=== PATIENT | male | born 1935 | race Caucasian/White ===

== ENCOUNTER → 2017-02-22 | Outpatient (CLI) | payer OTHER ==
[2016-08-23 13:56] VITALS: BP 123/66; PULSE 60
[~2017-02-22] MED LIST: ACT30 PO; ASPI81TA28 PO; ATOR-26 PO; BICA50TA2 PO; CALC-354; CHOL1TAB42; HYDR-3419 PO; ISOS20TA4; ISOS30TA3 PO; LEUP1INJ15 IM; LEUP30IN3 IM; LOSA1TAB PO; METO25TA56 PO; MULT-506 PO; RIVA1TAB4 PO; [UNRECOGNIZED DRUG - CODE]
[2017-02-22 13:15] VITALS: BP 105/68; PULSE 61; TEMP 37; O2SAT 95
--- NOTE | 2017-02-22 16:53 | Radiation Oncology Follow-Up ---
Radiation Oncology Follow-Up Date of Visit Feb 22, 2017. 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 Mackay is an 80-year-old male who has been followed with prostate-specific antigens intermittently in the past. These have remained in the normal range. Prostate-specific antigen on 05/21/2013 was 1.91. A most recent prostate- specific antigen was 1.84 from 01/06/2015.. In July of last year patient noted the onset of some rectal and penile pain. This was initially mild but has become more persistent and more severe. More recently the patient has noted increasing urinary frequency starting in October of this year. Patient was seen by Dr. Hensley on 11/02/2015 with a complaint of nocturia every 2 hours along with frequency and mild urgency. He also complained of decreased urinary stream with starting and stopping. The patient was started on Flomax but noticed a sensation of pins and needles in the urethra. He was also started on Finasteride 5 mg in September 2015. Digital rectal exam at that time revealed the prostate to be enlarged at 60 g with no induration or nodularity. He discussed consideration of Flomax or Rapaflo and was given samples of the Rapaflo. He recommended continuing the Finasteride and suggested consideration of cystoscopy. On 11/24/2015 patient underwent a flexible cystoscopy for irritative voiding symptoms and a significant smoking history. The patient had stopped the Flomax and started Rapaflo but it noticed no significant improvement from the Rapaflo. The examination of the urethra was described as normal. The cystoscope was advanced to the urethrovesical junction and the bladder was distended. The prostate was visualized at the proximal urethra and bladder neck and the prostate appeared abnormal and severely enlarged with kissing lateral lobes. All regions of the bladder versus dramatically inspected and the bladder appeared normal. The evaluation however was incomplete due to patient discomfort and pain. No apparent tumors were seen. Dr. Hensley discussed with the patient performing a transurethral resection of the prostate to improve urinary flow. However because of the Xarelto which he was taking for abnormal heart rate with pacemaker the patient was felt to be potential increased risk if this medication and aspirin were stopped. It was felt the patient was having symptoms of prostatitis and he was placed on a course of antibiotics consisting of ciprofloxacin and a possible transurethral resection of the prostate was to be reevaluated in 4 weeks. Patient had a repeat prostate-specific antigen that was drawn on 03/04/2016. This value was 0.39. This likely reflects the effect of finasteride. He continued to have persistent urinary symptoms and was seen by Dr. Ramirez. The digital rectal exam revealed an enlarged nodular firm prostate. He recommended consideration of ultrasound-guided biopsies. The patient agreed and the procedure was performed on 03/15/2016. Biopsies from the left lateral base revealed prostatic adenocarcinoma [place] grade 5+4 involving 30% of the core tissue sample. Biopsy of the left base revealed prostatic adenocarcinoma [place] grade 5+5 involving 80% of the core tissue sample. Biopsy of the left lateral mid gland revealed prostatic adenocarcinoma [place] grade 5+5 involving 90% of the core tissue with evidence of perineural invasion. Biopsy from the left mid gland revealed prostatic adenocarcinoma Isael grade 5+5 involving 60 % of the core tissue samples. Biopsy from the left lateral apex revealed a prostatic adenocarcinoma Isael grade 5+5 involving 30% of the core tissue samples with evidence of perineural invasion. Biopsy of the left apex revealed prostatic adenocarcinoma recent grade 5+5 involving 90% of the core tissue with evidence of perineural invasion. Biopsy of the left lateral base revealed prostatic adenocarcinoma Isael grade 5+5 involving 80% of the core tissue sample. Biopsy of the right base revealed prostatic adenocarcinoma Isael grade 5+5 involving 60% of the core tissue sample with evidence of perineural invasion. Biopsies from the right lateral mid gland revealed prostatic adenocarcinoma with [place] grade 5+5 involving 90% of the core tissue samples with evidence of perineural invasion. Biopsy of the right mid gland revealed prostatic adenocarcinoma [place] grade 5+5 involving 60% of the core tissue sample. Biopsy of the right lateral apex revealed prostatic adenocarcinoma Isael grade 5+5 involving 90% of the core tissue sample. Biopsy from the right apex revealed prostatic adenocarcinoma Isael grade 5+5 involving 60% of the core tissue sample. Therefore all 12 of 12 biopsies were positive the majority Charleston grade 5+5 with evidence of perineural invasion. Several of the samples revealed evidence of tumor necrosis. Accession number [id number] Patient underwent staging procedures. On March 31 a bone scan was performed which showed no evidence of metastatic disease. A CT scan of the abdomen and pelvis with and without IV contrast was also performed. The abdominal scan showed scattered diverticulosis without evidence of diverticulitis. There was no lymph node enlargement. In the pelvis there was streak artifact from the right hip prosthesis limiting its evaluation. The seminal vesicles appeared unremarkable. The pelvic lymph nodes were not enlarged. The bladder was not well visualized. There were no suspicious bony lesions on skeletal imaging. The prostatic gland appeared grossly unremarkable in relation to the prostate- specific antigen level without obvious evidence of extraprostatic extension. The patient's pain continued. He rated it as a level 4-5 there were times slightly lower and at that time slightly higher. It is improved with a bowel movement. His bowels have become somewhat constipated due to medication. Patient was started on Casodex on 03/23/2016. He received his first Lupron injection on 04/05/2016 described as 30 mg. 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 A catheter was placed to allow adequate healing. The patient is on pain medication which he takes 1-2 times a day. He is taking Miralax daily and states he does have a bowel movement on a daily basis without straining. We are asked to see this patient for evaluation and discussion of the radiation treatment options. He was given hormonal suppression. He then returned to our office and completed radiation therapy 07/14/2016. He received 8100 cGy. Interim History He is doing well from urinary standpoint. Today he gave an AUA score of 1. He completed expanded prostate cancer index composite for clinical practice and gave a score of 0 of 12 and urinary incontinence symptoms. He gave a score of 0 12 and urinary irritation symptoms. He gave a score of 0 of 12 and bowel symptoms. He wrote not after both in the sexual symptoms. He gave a score of 1 of 12 and hormonal vitality symptoms. His total was 1 of 48. He continues regular follow-up with the urologist and [facility]. He has had recheck PSAs in these all continue to be less than 0.01. He continues on hormone suppression. He gets injections every 4 months. His last injection was in December. He does have hot flashes as a side effect to the medication. He developed a lump of the left lower lip. There had been an injury approximately 4 months ago[address] He saw Dr. Oswald a tech intern in [place]. 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 He was referred to [facility]. He is been seen and evaluated by Dr. Tomas. He'll be undergoing a wide excision 03/08/2017. Allergies Coded Allergies: Dipyridamole (Unverified Allergy, Unknown, unknown, 04/08/16) Erythromycin (Unverified Allergy, Unknown, unknown, 04/08/16) Uncoded Allergies: constrast dye (Allergy, Intermediate, rash, 04/08/16) Home Medications Scheduled Aspirin (Aspirin Ec), 81 MG PO DAILY Atorvastatin (Lipitor), 1 TAB PO DAILY Bicalutamide (Casodex), 1 TAB PO DAILY Calcium Carbonate-Cholecalcife (Caltrate 600+D), DAILY Cholecalciferol (Vitamin D), DAILY Isosorbide Mononitrate Ext Rel (Imdur Ext Rel), 1 TAB PO DAILY Leuprolide Acetate (Lupron Depot), 30 MG IM q4 months Losartan Potassium (Cozaar), 1 TAB PO DAILY Metoprolol Tartrate (Lopressor) (Lopressor), 1 TAB PO BID Multivitamin (Multivitamin), 1 TAB PO DAILY Pioglitazone (Actos), 15 MG PO DAILY Rivaroxaban (Xarelto), 1 TAB PO DAILY Scheduled PRN Hydrocodon/Acetaminophen 5MG/300MG (Vicodin (5MG/300MG)), 1 TAB PO Q6H PRN for Pain Review of Systems Gastrointestinal: Symptoms: WNL Oral: Symptoms: No Problems Respiratory: Symptoms: WNL Other Respiratory: Occasional SOB with activity Urinary: Symptoms: WNL, Nocturia Comments: Nocturia x 1, see AUA & EPIC Skin: Symptoms: No Problems Physical Exam Vital Signs Date Time Temp Pulse Resp B/P Pulse Ox O2 Delivery O2 Flow Rate FiO2 02/22/17 13:15 37.0 61 16 105/68 95 Pain: Patient Pain Scale: 0 - 10 Initial Pain Intensity: 0.0 Fatigue: None General Appearance: no apparent distress, + pertinent finding (large 1 cm lesion of the left lower lip. This is raised and causes bulging into the lower inner lip.) Neck: no adenopathy, thyroid normal Respiratory/Chest: lungs clear, no respiratory distress, no accessory muscle use Cardiovascular: regular rate, rhythm, no gallop, no murmur Abdomen: non tender Anal / Rectum: Normal sphincter tone. Prostate is smooth without nodules. No rectal masses no rectal bleeding. Neurologic/Psychiatric: no motor/sensory deficits, alert, normal mood/affect Skin: warm/dry Laboratory Studies PSAs as reviewed above. Assessment & Plan Plan: Continue regular follow-up with primary care physician and urology. The PSAs are being ordered through urology every 6 months. He is getting Lupron injections every 4 months. 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 He is also enrolling into different studies at [facility] will be dealing with tumor markers. The other study is dealing with pain medication postoperatively. Due to the ongoing hormone suppression DEXA scan has been ordered. He'll be notified as to results. We asked her to return to our office in 1 year. Total Time In Follow-Up I spent 25 minutes speaking to the patient performing examination. I spent 15 minutes reviewing information in completing this note. Copy To Lexa Ramirez M.D.; Inderjit Hummel M.D.; Arvind Molina M.D.
== END | disposition home or self-care (01) ==
LOC: C.ONC 13:09
PROVIDERS: ATTEND Physician Assistant Medical
DX: Z08 Encounter for follow-up examination after completed treatment for malignant neoplasm (principal); Z92.3 Personal history of irradiation; Z85.46 Personal history of malignant neoplasm of prostate

== ENCOUNTER → 2017-05-04 | Outpatient (CLI) | payer OTHER ==
[~2017-05-04] VITALS: Ht 172.7 cm; Wt 80.9 kg
[~2017-05-04] MED LIST changes: -[UNRECOGNIZED DRUG - CODE]
[2017-05-04 07:53] VITALS: BP 97/58; PULSE 60; TEMP 36.9; O2SAT 96
--- NOTE | 2017-05-04 09:58 | Radiation Oncology Follow-Up ---
Radiation Oncology Follow-Up Date of Visit May 04, 2017. 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) 2016 Wedge resection with modified Berumen Angelo flap reconstruction ([place]. [place] [place] 03/08/2017 Stage [id number] Status post reconstruction of the left oral commissure 04/28/2017 Status post acute bleed requiring surgical sutures to be placed 05/02/2017 Last Edited By: Paloma Yanes on May 04, 2017 09:47 (2) Cancer of prostate w/high recur risk (T3a or [place] 8-10 or PSA>20) Status: Resolved Onset Date: 03/15/2016 Histology Subtype: adenocarcinoma Stage: lll Permanent Comment: BPH with lower urinary tract symptoms PSA 1.29 status post ultrasound-guided biopsy 03/15/2016 Adenocarcinoma the prostate [place] 5+4 and 5+5 Hormonal suppression Status post completion of radiation therapy 07/14/2016 received 8100 cGy Ongoing hormonal suppression Last Edited By: Paloma Yanes on Feb 22, 2017 16:36 (Paloma Yanes PA-C) History of Present Illness Mr. Mackay is an 80-year-old male who has been followed with prostate-specific antigens intermittently in the past. These have remained in the normal range. Prostate-specific antigen on 05/21/2013 was 1.91. A most recent prostate- specific antigen was 1.84 from 01/06/2015.. In July of last year patient noted the onset of some rectal and penile pain. This was initially mild but has become more persistent and more severe. More recently the patient has noted increasing urinary frequency starting in October of this year. Patient was seen by Dr. Hensley on 11/02/2015 with a complaint of nocturia every 2 hours along with frequency and mild urgency. He also complained of decreased urinary stream with starting and stopping. The patient was started on Flomax but noticed a sensation of pins and needles in the urethra. He was also started on Finasteride 5 mg in September 2015. Digital rectal exam at that time revealed the prostate to be enlarged at 60 g with no induration or nodularity. He discussed consideration of Flomax or Rapaflo and was given samples of the Rapaflo. He recommended continuing the Finasteride and suggested consideration of cystoscopy. On 11/24/2015 patient underwent a flexible cystoscopy for irritative voiding symptoms and a significant smoking history. The patient had stopped the Flomax and started Rapaflo but it noticed no significant improvement from the Rapaflo. The examination of the urethra was described as normal. The cystoscope was advanced to the urethrovesical junction and the bladder was distended. The prostate was visualized at the proximal urethra and bladder neck and the prostate appeared abnormal and severely enlarged with kissing lateral lobes. All regions of the bladder versus dramatically inspected and the bladder appeared normal. The evaluation however was incomplete due to patient discomfort and pain. No apparent tumors were seen. Dr. Hensley discussed with the patient performing a transurethral resection of the prostate to improve urinary flow. However because of the Xarelto which he was taking for abnormal heart rate with pacemaker the patient was felt to be potential increased risk if this medication and aspirin were stopped. It was felt the patient was having symptoms of prostatitis and he was placed on a course of antibiotics consisting of ciprofloxacin and a possible transurethral resection of the prostate was to be reevaluated in 4 weeks. Patient had a repeat prostate-specific antigen that was drawn on 03/04/2016. This value was 0.39. This likely reflects the effect of finasteride. He continued to have persistent urinary symptoms and was seen by Dr. Ramirez. The digital rectal exam revealed an enlarged nodular firm prostate. He recommended consideration of ultrasound-guided biopsies. The patient agreed and the procedure was performed on 03/15/2016. Biopsies from the left lateral base revealed prostatic adenocarcinoma Isael grade 5+4 involving 30% of the core tissue sample. Biopsy of the left base revealed prostatic adenocarcinoma Isael grade 5+5 involving 80% of the core tissue sample. Biopsy of the left lateral mid gland revealed prostatic adenocarcinoma Isael grade 5+5 involving 90% of the core tissue with evidence of perineural invasion. Biopsy from the left mid gland revealed prostatic adenocarcinoma Isael grade 5+5 involving 60 % of the core tissue samples. Biopsy from the left lateral apex revealed a prostatic adenocarcinoma Isael grade 5+5 involving 30% of the core tissue samples with evidence of perineural invasion. Biopsy of the left apex revealed prostatic adenocarcinoma recent grade 5+5 involving 90% of the core tissue with evidence of perineural invasion. Biopsy of the left lateral base revealed prostatic adenocarcinoma Isael grade 5+5 involving 80% of the core tissue sample. Biopsy of the right base revealed prostatic adenocarcinoma [place] grade 5+5 involving 60% of the core tissue sample with evidence of perineural invasion. Biopsies from the right lateral mid gland revealed prostatic adenocarcinoma with Isael grade 5+5 involving 90% of the core tissue samples with evidence of perineural invasion. Biopsy of the right mid gland revealed prostatic adenocarcinoma [place] grade 5+5 involving 60% of the core tissue sample. Biopsy of the right lateral apex revealed prostatic adenocarcinoma [place] grade 5+5 involving 90% of the core tissue sample. Biopsy from the right apex revealed prostatic adenocarcinoma Isael grade 5+5 involving 60% of the core tissue sample. Therefore all 12 of 12 biopsies were positive the majority [place] grade 5+5 with evidence of perineural invasion. Several of the samples revealed evidence of tumor necrosis. Accession number [id number] Patient underwent staging procedures. On March 31 a bone scan was performed which showed no evidence of metastatic disease. A CT scan of the abdomen and pelvis with and without IV contrast was also performed. The abdominal scan showed scattered diverticulosis without evidence of diverticulitis. There was no lymph node enlargement. In the pelvis there was streak artifact from the right hip prosthesis limiting its evaluation. The seminal vesicles appeared unremarkable. The pelvic lymph nodes were not enlarged. The bladder was not well visualized. There were no suspicious bony lesions on skeletal imaging. The prostatic gland appeared grossly unremarkable in relation to the prostate- specific antigen level without obvious evidence of extraprostatic extension. The patient's pain continued. He rated it as a level 4-5 there were times slightly lower and at that time slightly higher. It is improved with a bowel movement. His bowels have become somewhat constipated due to medication. Patient was started on Casodex on 03/23/2016. He received his first Lupron injection on 04/05/2016 described as 30 mg. 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 A catheter was placed to allow adequate healing. The patient is on pain medication which he takes 1-2 times a day. He is taking Miralax daily and states he does have a bowel movement on a daily basis without straining. We are asked to see this patient for evaluation and discussion of the radiation treatment options. He was given hormonal suppression. He then returned to our office and completed radiation therapy 07/14/2016. He received 8100 cGy. He is doing well from urinary standpoint. Today he gave an AUA score of 1. He completed expanded prostate cancer index composite for clinical practice and gave a score of 0 of 12 and urinary incontinence symptoms. He gave a score of 0 12 and urinary irritation symptoms. He gave a score of 0 of 12 and bowel symptoms. He wrote not after both in the sexual symptoms. He gave a score of 1 of 12 and hormonal vitality symptoms. His total was 1 of 48. He continues regular follow-up with the urologist and [facility]. He has had recheck PSAs in these all continue to be less than 0.01. He continues on hormone suppression. He gets injections every 4 months. His last injection was in December. He does have hot flashes as a side effect to the medication. He developed a lump of the left lower lip. There had been an injury approximately 4 months ago[address] He saw Dr. Oswald a manager roofing in [place]. 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 He was referred to [facility]. He is been seen and evaluated by Dr. Tomas. He'll be undergoing a wide excision 03/08/2017. (Paloma Yanes PA-C) Interim History Following his follow-up visit 02/22/2017 he underwent a wedge resection of the lesion of the left lower lip. He also had a sentinel lymph node biopsies 2016. 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 4 lymph nodes were evaluated and were negative for metastasis. He has had difficulty with eating. The left lateral commissure did not close well after surgery. When he would eat food would come out of the corner of the mouth. He then underwent a repair on April 28. This did help to improve the problem. He has had overall proximal 24 pound weight loss due to the difficulty with eating. On 05/02/2017 he developed bleeding from the inside of the mouth. He presented to [place] emergency room. He stated that it took a considerable amount of time to stop the bleeding. Sutures were placed and the bleeding finally stopped. Since this procedure he once again has difficulty with eating and having food coming out from the left side of the mouth. He was seen in medical oncology by Dr. Krishnan in [place]. He referred the patient to our office to discuss radiation therapy. He did plan a PET/CT. This is currently scheduled for sometime in June. Arrangements were made for him to be seen at [facility]. He was seen. Unfortunately he does not have insurance coverage for the dental extractions. This was going to cause a considerable amount of money. (Paloma Yanes PA-C) Allergies Coded Allergies: Dipyridamole (Unverified Allergy, Unknown, unknown, 04/08/16) Erythromycin (Unverified Allergy, Unknown, unknown, 04/08/16) Uncoded Allergies: constrast dye (Allergy, Intermediate, rash, 04/08/16) Home Medications Scheduled Aspirin (Aspirin Ec), 81 MG PO DAILY Atorvastatin (Lipitor), 1 TAB PO DAILY Bicalutamide (Casodex), 1 TAB PO DAILY Calcium Carbonate-Cholecalcife (Caltrate 600+D), DAILY Cholecalciferol (Vitamin D), DAILY Isosorbide Mononitrate (Isosorbide Mononitrate), 40 MG AM Isosorbide Mononitrate (Isosorbide Mononitrate), PM Leuprolide Acetate (Lupron Depot), IM [id number] Losartan Potassium (Cozaar), 1 TAB PO DAILY Metoprolol Tartrate (Lopressor) (Lopressor), 1 TAB PO BID Multivitamin (Multivitamin), 1 TAB PO DAILY Pioglitazone (Actos), 15 MG PO DAILY Rivaroxaban (Xarelto), 1 TAB PO DAILY Review of Systems Gastrointestinal: GI Comments: takes miralax Respiratory: Other Respiratory: shortness of breath on exertion Urinary: Symptoms: Nocturia Comments: nocturiax1 Additional Notes: He completed a distress management report and answered "no" to all questions other than he has concerns about pain and his dental issues. He will be seen by patient navigation. (Paloma Yanes PA-C) Physical Exam Vital Signs Date Time Temp Pulse Resp B/P (MAP) Pulse Ox O2 Delivery O2 Flow Rate FiO2 05/04/17 07:53 36.9 60 20 96 Pain: Pain Duration: constant Side: Left Patient Pain Scale: 0 - 10 Initial Pain Intensity: 4.0 Pain Description: Dull, Aching General Appearance: no apparent distress Eyes: normal inspection, EOMI ENT: normal ENT inspection, hearing grossly normal, + pertinent finding ( healing incision of the left commissure. There is some mild granulation tissue seen on the buccal mucosa.) Neck: no adenopathy, thyroid normal, + pertinent finding (well-healed incisions of the right and left neck.) Respiratory/Chest: lungs clear, no respiratory distress, no accessory muscle use, + respiratory distress Cardiovascular: regular rate, rhythm, no gallop, no murmur Neurologic/Psychiatric: no motor/sensory deficits, alert, normal mood/affect Skin: warm/dry (Paloma Yanes PA-C) Assessment & Plan Mr. Mackay is a 81-year-old gentleman with a previous history of high risk prostate cancer treated with external beam radiation therapy and androgen deprivation therapy which completed in June 2016. In the interim, the patient has been receiving long-term androgen deprivation therapy for his prostate cancer and currently his prostate cancer is in remission. More recently, the patient was diagnosed with Siva cell carcinoma involving the left lower lip. The patient initially underwent biopsy in January 2017 followed by wide local excision and sentinel lymph node biopsy on 03/08/[address] Tomas at [facility]. At the time of the procedure, the patient also underwent a Berumen-Angelo flap reconstruction. The pathology from the wide local excision revealed Maxbass cell carcinoma measuring 1 cm in the greatest dimension with negative margins in all directions; there was evidence of lymphovascular space invasion potentially and 4 sentinel lymph nodes were sampled and all the lymph nodes were negative. The patient was ultimately staged as pathologic T1N0. Following his surgery in February 2017, the patient did suffer from incontinence of the left oral commissure which did lead to significant bleeding requiring the patient to undergo multiple evaluations and reconstructive surgery in the beginning of April 2017. The patient has also been seen by Dr. Beckman from medical oncology at [facility] and Dr. Beckman has recommended adjuvant radiation therapy alone with no role for chemotherapy. Dr. Beckman plans to the patient back in follow-up in 3 months with a PET/CT scan. We are now seeing the patient in evaluation to discuss the role of adjuvant radiation therapy. In general, we did discuss the natural course, epidemiology, prognosis and treatment management for head and neck Maxbass cell carcinoma. We did explain to the patient that there are no randomized conical trials that help guide our overall management however adjuvant radiation therapy has been shown to potentially be beneficial for improving local control following surgery in multiple retrospective studies. Given the location and the concern for potential recurrence, we have recommended adjuvant radiation therapy. I will discuss the case with Dr. Tomas regarding the potential role of adjuvant radiation therapy to the bilateral necks given the fact that the sentinel lymph nodes bilaterally were negative. At this point, we have recommended adjuvant radiation therapy to the postoperative bed without radiation therapy to the bilateral at-risk lymph nodes. The patient has agreed to undergo radiation therapy. We did education counselor the patient regarding the need for a potential feeding tube due to the location of the radiation therapy and the anticipated challenge of oral intake as we progress throught the course of radiation therapy; at this point, the patient is uninterested in being considered for a feeding tube. We explained to him that we can reevaluate during the course of treatment regarding the need for the placement of a feeding tube. Additionally, we did review the need to complete dental extractions prior to initiating radiation therapy to prevent the risk of osteoradionecrosis following the completion of radiation therapy. The patient has agreed to undergo dental evaluation with consideration of dental extraction of his lower mandibular teeth. We will schedule the patient for tentative CT simulation for treatment planning in 2 weeks with the expectation that he will have his dental extractions completed within the next week; if there is delay with his dental extractions, we will reevaluate in order to minimize potential delay from surgery to radiation therapy. The patient was comfortable with this plan overall. We have explained the indications, alternatives, benefits, risks and side effects of radiation therapy for head/neck cancer. We have explained the most common side effects including but are not limited to skin erythema, skin break down, hair loss, fibrosis, adhesion development, heart failure and heart disease , esophagitis, bowel obstruction, urinary symptoms, thyroid disorders, mucositis , nauesea, vomiting, diarrhea, anemia, fatigue and development of secondary malignancy. Additionally, patients suffer may have xerostomia, stomatitis, glossitis, dysphagia, aspiration, mandibular osteoradionecrosis, mucocutaneous fistula formation, lymphedema in the neck, pharyngeal edema, mucositis, loss of taste. We also discussed that male patients may have issues with erections ( potency) and infertility issues depending on their age and area of treatment. We have explained the CT simulation process and treatment planning. We explained what to expect before, during and after treatment on a regular basis. The patient understands and would be willing to consent to treatment. The patient and family had multiple questions which were answered to their full satisfaction. Thank you for allowing us to participate in the care of this patient. This chart was completed in part utilizing [employer] Speech Voice Recognition software. Attempts were made to minimize the grammatical errors, random word insertions, pronoun errors and incomplete sentences. Any formal questions or concerns about the content, text or information contained within the body of this dictation should be directly addressed to the provider for clarification. Reece Grubbs MD Department of Radiation Oncology [facility] (Veeral. Grubbs MD) Total Time In Follow-Up I spent 20 minutes seeking to the patient performing examination. I spent 15 minutes reviewing information in completing this note. (Paloma Yanes PA-C) I spent 20 minutes examining and counseling the patient. I spent 15 minutes completing this note. [employer] (Veeral. Grubbs MD) Copy To Jovani Beckman M.D.; Inderjit Hummel M.D.; Gavino Tomas M.D.
== END | disposition home or self-care (01) ==
LOC: C.ONC 07:49
PROVIDERS: ATTEND Internal Medicine Hematology & Oncology
DX: C00.9 Malignant neoplasm of lip, unspecified (principal); Z85.46 Personal history of malignant neoplasm of prostate

== ENCOUNTER → 2017-12-29 | Outpatient (CLI) | payer OTHER ==
[~2017-12-29] MED LIST changes: -HYDR-3419 PO; -ISOS30TA3 PO; -LEUP30IN3 IM; +OPTIRAY 320 IV PRN
--- NOTE | 2017-12-29 14:52 | DIAGNOSTIC IMAGING REPORT ---
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 COMPARISON STUDY: Abdominal CT dated 03/31/2016. TECHNIQUE: Following the IV administration of 94 of Optiray 320, CT scan of the chest, abdomen, and pelvis was performed from the thoracic inlet to the proximal femora. Images are reviewed in the axial, sagittal, and coronal planes. IV contrast was administered without complication. Automated dose control exposure was utilized. A dose lowering technique was utilized adhering to the principles of ALARA. The examination is degraded by streak artifact from the patient's arms which could not be elevated above the chest or abdomen. CT DOSE: 869.97 mGy.cm FINDINGS: CHEST: Thyroid: Atrophic. Thoracic aorta: There is atherosclerotic calcification of the thoracic aorta, which is normal in caliber and demonstrates standard 3-vessel arch anatomy. No dissection is seen. Pulmonary vasculature: The pulmonary trunk is normal in caliber. There are no filling defects identified in the central pulmonary vessels to indicate pulmonary embolus. Note that this examination was not protocoled for evaluation of the pulmonary arteries. Heart: A 2-lead cardiac pacemaker is present in the left chest wall. The patient is status post midline sternotomy. The heart is normal in size and without pericardial effusion. The coronary arteries are densely calcified. Lungs and pleural spaces: Emphysematous change is identified. There is evidence of multifocal pulmonary metastatic disease. A right anterior apical pulmonary lesion is seen on image #63 and measures 3.6 x 3.0 cm. There is surrounding groundglass change at the right apex. A 2.2 x 1.6 cm lesion is seen in the right lung base on image #199, a 1.8 cm pleural-based lesion in the left lower lobe as seen on image #156, and a 0.7 cm pleural-based nodule at the left apex as seen on image #62. Mediastinum: There is no mediastinal lymphadenopathy. Aminah: There is left hilar adenopathy. A node on image #150 measures 3.0 x 2.0 cm. No right hilar adenopathy is identified. Axillae: There is no axillary lymphadenopathy. Bony thorax: The skeletal structures are osteopenic. No lytic or blastic lesions are identified. Degenerative change is seen throughout the thoracic spine and in the shoulders. ABDOMEN AND PELVIS: Liver: The contrast-enhanced liver is normal in size, contour, and attenuation. There is no intrahepatic or ductal dilatation. The hepatic veins and portal veins are patent. Gallbladder: The gallbladder is distended but otherwise normal in appearance. Spleen: Normal in size and attenuation. Pancreas: Atrophic and grossly unremarkable. Adrenal glands: Unremarkable. Kidneys: The contrast enhanced kidneys are atrophic and without hydronephrosis. The kidneys enhance symmetrically. Scattered subcentimeter cortical hypodensities likely represent cysts but are too small for definitive characterization. There is a 1.7 cm enhancing lesion arising from the posterior interpolar right kidney on image #134. Renovascular calcifications are observed. Abdominal vasculature: There is advanced atherosclerotic calcification of the abdominal aorta. Aortobiiliac bypass grafts are identified and the qawalangin aorta is thrombosed. The bypass grafts are widely patent. Bowel: There is moderate sigmoid diverticulosis without CT evidence of acute diverticulitis. Moderate constipation is observed. No bowel obstruction is seen. The appendix is well-visualized and normal. Peritoneum: There is no intraperitoneal free air or abdominal ascites. Lymphadenopathy: There are enlarged retroperitoneal and left iliac chain lymph nodes. A left periaortic node on image #174 measures 2.4 x 2.0 cm. A more inferior left periaortic node on image #218 measures 2.2 x 2.7 cm. A left iliac otis aggregate on image #276 measures approximately 3.5 x 3 cm. No pelvic sidewall or inguinal lymphadenopathy is seen. Pelvic viscera: Evaluation of the pelvis is degraded by streak artifact from a right hip arthroplasty. The bladder is decompressed and not well evaluated. A 2.0 cm enhancing soft tissue nodule is suggested along the posterior left wall of the lateral and axial image #382. The prostate gland is diminutive and heterogeneous. Metallic implants are noted in the prostate. There is a 5.1 x 3.5 cm soft tissue implant seen posterior to the left ilium within the superior aspect of the gluteal musculature on image #256. An additional 2.3 cm implant is seen within the more inferior left gluteal musculature on image #303. Skeletal structures: The skeletal structures are osteopenic. There is moderate lumbosacral spondylosis. Advanced arthritic change is seen in the left hip. No lytic or blastic lesions are seen. A right hip arthroplasty is in place. IMPRESSION: 1. There is evidence of multifocal metastatic disease. 2. There is multifocal pulmonary metastatic disease as well as left hilar adenopathy. 3. There are pathologically enlarged retroperitoneal and left iliac chain lymph nodes. 4. Large soft tissue implants are present within the left gluteal musculature. 5. There is groundglass consolidation at the right apex around the largest pulmonary lesion. This could represent an infectious/inflammatory pneumonitis or possibly hemorrhage. Clinical correlation will be required. 6. There is a 1.7 cm partially exophytic enhancing lesion arising from the posterior interpolar right kidney. This should be considered renal cell carcinoma until proven otherwise. 7. There is a 2.0 cm focus of nodularity suggested involving the posterior left wall of the bladder. This is not well assessed and neoplasm is not excluded. Consider follow-up with cystoscopy. 8. Emphysema. 9. Advanced peripheral vascular disease with evidence of aortobiiliac bypass. The bypass grafts are widely patent. 10. Moderate constipation. 11. The gallbladder is distended but otherwise normal in appearance. Correlation with serum bilirubin levels is recommended. 12. Moderate sigmoid diverticulosis without CT evidence of acute diverticulitis. 13. Additional findings as above. Electronically signed by: Harlan Arciniega M.D. 12/29/2017 2:51 PM Dictated Date/Time: 12/29/2017 2:34 PM
== END | disposition home or self-care (01) ==
LOC: C.CTS 12:03
PROVIDERS: ATTEND Internal Medicine Hematology & Oncology
DX: C4A Merkel cell carcinoma (principal); C78.00 Secondary malignant neoplasm of unspecified lung; R59.1 Generalized enlarged lymph nodes; N29 Other disorders of kidney and ureter in diseases classified elsewhere; J43.9 Emphysema, unspecified; I73.9 Peripheral vascular disease, unspecified; K59.00 Constipation, unspecified; K57.30 Diverticulosis of large intestine without perforation or abscess without bleeding; Z95.828 Presence of other vascular implants and grafts

== ENCOUNTER → 2018-02-28 | Outpatient (CLI) | payer OTHER ==
[~2018-02-28] MED LIST changes: -OPTIRAY 320 IV PRN
--- NOTE | 2018-02-28 16:24 | DIAGNOSTIC IMAGING REPORT ---
ULTRASOUND LEFT LOWER EXTREMITY VENOUS CLINICAL HISTORY: Left leg pain and swelling. COMPARISON STUDY: No priors. TECHNIQUE: Real-time, grayscale, and color Doppler sonography of the deep veins of the left lower extremity was performed from the inguinal crease to the calf. Compression and augmentation were utilized. FINDINGS: There is no sonographic evidence of deep venous thrombosis identified in the left lower extremity. The common femoral, superficial femoral, and popliteal veins are patent and normally compressible. The greater saphenous vein and the profunda femoris vein at the junction with the common femoral vein are clear. The visualized calf veins are patent. Prominent left inguinal lymph nodes are identified. IMPRESSION: There is no sonographic evidence of deep venous thrombosis identified in the left lower extremity. Electronically signed by: Harlan Arciniega M.D. 02/28/2018 4:22 PM Dictated Date/Time: 02/28/2018 4:21 PM
== END | disposition home or self-care (01) ==
LOC: C.ULTR 15:34
PROVIDERS: ATTEND Internal Medicine Hematology & Oncology
DX: C4A Merkel cell carcinoma (principal); M79.605 Pain in left leg; R22.42 Localized swelling, mass and lump, left lower limb

== ENCOUNTER 2018-07-02 21:56 | Inpatient (IN) | payer OTHER ==
[~2018-07-02] VITALS: Ht 172.7 cm; Wt 77.5 kg
[~2018-07-02 21:56] MED LIST changes: -BICA50TA2 PO; +BICA50TA40 PO; +FENT75DI2 TOP; +OXYC20TA50 PO
[2018-07-03] VITALS (26 sets, daily range): BP systolic 81–121; BP diastolic 53–74; PULSE 60–100; TEMP 36.4–36.5; O2SAT 94–100; Ht 172.7 cm; Wt 77.5 kg
[2018-07-03] MEDS: PROPOFOL IV EMULSION 10 MG/ML 100 ML VIAL IV PRN ×3 (05:30→19:12)
[2018-07-03] MEDS ORDERED: NOREPINEPHRINE BIT INJ 8 MG in DEXTROSE 5% 500ML 500 ML IV PRN (05:35)
[2018-07-03] MEDS ORDERED: PIPERACILL/TAZOBAC CONSULT ACTIVE PRN (05:45)
[2018-07-03] MEDS ORDERED: ICU PROTOCOL FOR HYPERGLYCEMIA PRN (05:45)
[2018-07-03] MEDS ORDERED: VANCOMYCIN CONSULT ACTIVE PRN (05:45)
[2018-07-03] MEDS ORDERED: FENTANYL CITRATE INJ 50 MCG/1 ML 2 ML VIAL IV PRN (05:45)
[2018-07-03] MEDS ORDERED: PATIENT'S HEIGHT AND/OR WEIGHT NEEDED SCH (06:00)
[2018-07-03] MEDS ORDERED: NOREPINEPHRINE BIT INJ 16 MG in DEXTROSE 5% 500ML 500 ML IV PRN (06:00)
[2018-07-03 06:31] LABS: HEMATOCRIT 24.9 % (42-52); MEAN CORPUSCULAR HEMOGLOBIN 28.3 pg (25-34); MEAN CORPUSCULAR HGB CONC 32.1 g/dl (32-36); MEAN PLATELET VOLUME 11.1 fL (7.4-10.4); PLATELET COUNT 170 K/uL (130-400); RED CELL DISTRIBUTION WIDTH CV 17.6 % (11.5-14.5); WHITE BLOOD COUNT 1.35 K/uL (4.8-10.8)
--- NOTE | 2018-07-03 06:36 | DIAGNOSTIC IMAGING REPORT ---
CHEST ONE VIEW PORTABLE CLINICAL HISTORY: Respiratory failure. [place] cell carcinoma. COMPARISON STUDY: Chest CT May 09, 2018. FINDINGS: The tip of the endotracheal tube is 5 cm above the morgan. A dual lead left subclavian pacemaker is in place. There are median sternotomy wires and clips from bypass grafting. Cardiomediastinal silhouette is stable. There is no pneumothorax or pleural effusion. Right lower neck surgical clips are noted. Interstitial thickening suggest pulmonary edema. Multifocal airspace opacities are also present. The pulmonary lesion shown on CT of May 09, 2018 are not well depicted on this exam, likely due to technique. Prominent gas-filled loops of small bowel are noted within the left upper quadrant. IMPRESSION: 1. Satisfactory positioning of the endotracheal tube. 2. Diffuse interstitial thickening which suggests pulmonary edema. Scattered bilateral airspace opacities may reflect pulmonary edema or superimposed pneumonia. 3. Pulmonary lesions shown on CT of May 09, 2018 not well depicted on this exam, likely due to technique. 4. Mildly dilated gas-filled loops of small bowel within left upper quadrant, a nonspecific finding. Electronically signed by: Shabbir Jansen M.D. 07/03/2018 6:34 AM Dictated Date/Time: 07/03/2018 6:30 AM
[2018-07-03 06:38] LABS: INR 1.4 (0.9-1.1)
[2018-07-03 06:49] LABS: ALBUMIN 2.2 gm/dl (3.4-5.0); ALT/SGPT 55 U/L (12-78); AST/SGOT 338 U/L (15-37); BLOOD UREA NITROGEN 44 mg/dl (7-18); CALCIUM 7.1 mg/dl (8.5-10.1); CARBON DIOXIDE 20 mmol/L (21-32); GLUCOSE 178 mg/dl (70-99); LIPASE 32 U/L (73-393); POTASSIUM 3.5 mmol/L (3.5-5.1); SODIUM 136 mmol/L (136-145)
--- NOTE | 2018-07-03 06:53 | Critical Care Consultation ---
Critical Care Consultation Date of Consultation: Jul 03, 2018. Attending Physician: Eleazar Kenney M.D. Reason for Consultation: 82-year-old male with acute hypoxic respiratory failure requiring intubation with mechanical ventilation with underlying concerns for aspiration event resulting in septic presentation. History of Present Illness History of present illness is limited secondary to patient's current state of intubation with mechanical ventilation with sedation. History obtained from colleagues, nursing staff, and outside facility documentation. 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 He currently is treated aggressively with pain medication in the outpatient setting. Apparently, sometime last evening, the patient sustained a fall from height. He was found in the bathroom floor by family. He was brought to the emergency department at which time he was found to be in extreme pain. He was treated with multiple doses of pain medication including fentanyl and Dilaudid. He was aggressively hydrated with IV fluids secondary to tachycardia, hypotension, and fever with concerns of RIGHT middle lobe pneumonia. Patient was found to be neutropenic as well as anemic. His BNP was greater than 22, 000. His lactic acid was initially 6.1 which she declined to 4. During treatment, the patient complained of increasing shortness of breath and was found to be extremely hypoxic. Eventually, the patient required endotracheal intubation for airway management. Previously, the patient had been a DNR/DNI, however this decision had apparently been reversed by family. He was medicated with etomidate and succinylcholine prior to intubation. Patient was placed on a propofol drip. He received IV vancomycin and Zosyn. CTA of the chest was obtained and demonstrated no PE, however groundglass opacities consistent with possible infiltrative change versus metastatic process was evaluated on chest CT. Upon arrival in the ICU, the patient is intubated and sedated. He was placed on norepinephrine in route from outside facility. 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) Social History Smoking Status: Current Every Day Smoker Smokeless Tobacco Use: No Alcohol Use: none Drug Use: none Marital Status: other Housing Status: lives with family Occupation Status: retired Allergies Coded Allergies: Dipyridamole (Unverified Allergy, Unknown, unknown, 06/12/18) Erythromycin (Unverified Allergy, Unknown, unknown, 06/12/18) Uncoded Allergies: constrast dye (Allergy, Intermediate, rash, 04/08/16) Home Medications Scheduled Aspirin (Aspirin Ec), 81 MG PO DAILY Atorvastatin (Lipitor), 1 TAB PO DAILY Bicalutamide (Casodex), 1 TAB PO DAILY Calcium Carbonate-Cholecalcife (Caltrate 600+D), DAILY Cholecalciferol (Vitamin D), DAILY Fentanyl (Fentanyl), 75 MCG TOP Q72H Isosorbide Mononitrate (Isosorbide Mononitrate), 40 MG AM Isosorbide Mononitrate (Isosorbide Mononitrate), PM Leuprolide Acetate (Lupron Depot), IM [id number] Losartan Potassium (Cozaar), 1 TAB PO DAILY Metoprolol Tartrate (Lopressor) (Lopressor), 1 TAB PO BID Multivitamin (Multivitamin), 1 TAB PO DAILY Pioglitazone (Actos), 15 MG PO DAILY Rivaroxaban (Xarelto), 1 TAB PO DAILY Scheduled PRN Oxycodone Hcl (Oxycontin), 20 MG PO Q8 PRN for Pain Current Inpatient Medications Current Inpatient Medications Medications (Trade) Dose Ordered Sig/Alen Route Start Time Stop Time Status Last Admin Dose Admin Heparin Sodium (Porcine) (Heparin Sq 5000 Unit/0.5ml) 5,000 unit Q8H SQ 07/03/18 05:45 08/02/18 05:44 UNV Fentanyl Citrate (Fentanyl Inj) 25 mcg Q1H PRN IV 07/03/18 05:45 07/17/18 05:44 Pantoprazole Sodium 40 mg/ Syringe 10 ml @ 5 mls/min DAILY IV 07/03/18 09:00 08/02/18 08:59 Miscellaneous Information (Icu Protocol For Hyperglycemia) 1 ea PRN PRN N/A 07/03/18 05:45 07/05/18 05:44 Propofol (Diprivan Iv Emulsion 100ml Vial) 1 dose PRN PRN IV 07/03/18 05:59 07/06/18 05:58 Aspirin (Ecotrin Tab) 81 mg DAILY PO 07/03/18 09:00 08/02/18 08:59 Vancomycin HCl 1000 mg/Sodium Chloride 270 ml @ 125 mls/hr Q12 IV 07/03/18 09:00 07/10/18 08:59 UNV Vancomycin HCl (Consult) 1 ea UD PRN N/A 07/03/18 05:45 08/02/18 05:44 Piperacillin Sod/ Tazobactam Sod 4.5 gm/Dextrose 120 ml @ 200 mls/hr Q6H IV 07/03/18 05:45 07/10/18 05:44 UNV Miscellaneous Information (Consult) 1 ea UD PRN N/A 07/03/18 05:45 08/02/18 05:44 Miscellaneous Information (Patient'S Height And/Or Weight Needed) 1 ea Q2H N/A 07/03/18 06:00 08/02/18 05:59 Norepinephrine Bitartrate 16 mg/ Dextrose 516 ml @ 0 mls/hr Q0M PRN IV 07/03/18 06:00 08/02/18 05:59 Review of Systems A complete 10-point Review of Systems was discussed with the patient, with pertinent positives and negatives listed in the History of Present Illness. All remaining Review of Systems questions can be considered negative unless otherwise specified. Physical Exam Date Time Temp Pulse Resp B/P (MAP) Pulse Ox O2 Delivery O2 Flow Rate FiO2 07/03/18 05:35 30 VITAL SIGNS - Vital signs and nursing notes were reviewed. GENERAL - 82-year-old male appearing his stated age who is in no acute distress. Intubated and sedated. SKIN - Without rashes. HEAD - NC/AT. EYES - PERRL with EOMI bilaterally. Sclera anicteric. EARS - No deformities of external structures noted on gross examination bilaterally. NOSE - Midline and without cyanosis. No epistaxis or purulent drainage noted. MOUTH/OROPHARYNX - Without perioral cyanosis. Intubated. NECK - Neck with FROM. Supple to palpation. LUNGS - Chest wall symmetric without accessory muscle use, intercostals retractions, or central cyanosis. Normal vesicular breath sounds CTA B/L. No wheezes, rales, or rhonchi appreciated. CARDIAC - RRR with S1/S2. No murmur, rubs, or gallops appreciated. ABDOMEN - Abdominal contour flat without pulsations or visible masses. BS normoactive all four quadrants. No tenderness, palpable masses, hepatosplenomegaly, or ascites noted. EXTREMITIES - No clubbing or peripheral cyanosis. Moderate bilateral peripheral edema appreciated to the lower extremities. +3/5 radial and dorsalis pedis pulses palpated throughout. NEUROLOGIC - Unable to assess secondary to current state of sedation/intubation. Laboratory Results Last 24 Hours Test 07/03/18 05:35 07/03/18 05:57 Creatine Kinase MB Ratio Diagnostic Results CXR demonstrates RML infiltrate with pulmonary vascular congestion. ET tube ~ 5.5cm above the morgan. Per my interpretation. Radiologist's impression unavailable at the time of dictation. Assessment & Plan (1) Acute respiratory failure with hypoxia (2) Pneumonia (3) Sepsis (4) Anemia (5) Hypotension (6) Lactic acidosis Reason Critically Ill: 82-year-old male with acute hypoxic respiratory failure requiring intubation with mechanical ventilation with underlying concerns for aspiration event resulting in septic presentation. Neuro - * CAM ICU: Unable to assess secondary to current state of sedation. * Sedation: Propofol * Pain: PRN Fentanyl Cardiac - * Hypotension with CHF: * Likely secondary to sepsis. * Received 6L IVF at [facility]. * Currently requiring Propofol - wean down as tolerated. * Will order AM Echo in the setting of new onset CHF. * Will hold on Lasix at this point. * BNP >22,000 - will eval. Respiratory - * Respiratory Failure with Hypoxia in the setting of ?RML Pneumonia: * intubated/sedated. * Will obtain ABG * Repeat CXR * CTA w/o PEs * ABX - Vanc/Zosyn. GI - * Prophylaxis - Protonix RENAL/LYTES - * BOOKER: * Will hold on IVF 2/2 impending severe volume overload 2/2 aggressive resuscitation. * No significant electrolyte derangements: * Will replace appropriately. - * h/o BPH >> Prostate CA * Capellan Cath in place * Strict I&Os ENDO - * No h/o DM/Thyroid Dz HEME - * Anemia: * Received 1 U PRBC 2/2 ??dilution during resuscitation. * Will trend - transfuse as needed. * Neutropenia: * Treat aggressively for likely infectious process in the immunocompromised patient. * Precautions. ID - * Sepsis - Likely Pulmonary Source: * Vanc/Zosyn * Lactic initially 6 --> 9.1 --> currently 3 * Will check ProCal * Added cultures. LINES/IV ACCESS - * PIVs x2 * Capellan * Endotracheal Tube DVT PROPHYLAXIS - * Heparin q8h * SCDs I have personally spent 60 minutes of critical care time in the direct management of this patient. This is a life/limb threatening event. This includes time spent evaluating patient, direct bedside care, chart review, placing orders, interpretation of diagnostic studies, discussion with consultants, patient, and family members, as well as other required patient management activities. This time is exclusive of all separately billable procedures, and teaching time and separate from and in addition to any other critical care service time. Thank you for this consultation allow us to be part of this patient's care. Please refer to my attending physician's documentation for any further recommendations. The patient was seen, examined independently, chart reviewed, agree with assessment and plan of my colleagues Boris Chin. 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 The patient was started also on broad-spectrum antibiotics. When I interviewed the patient, review of system was not obtainable obviously as the patient was intubated and sedated. The patient underwent central line placement for CVP monitoring. The patient was found also to have elevated troponin significantly. His physical exam revealed elderly gentleman, appears chronically ill, pale, does not appear to be in any distress at the moment while he is vented and sedated. Positive JVP, S1-S2 regular rate and rhythm, distant breath sounds with hyperinflated chest, abdomen is benign, no edema. His chest x-ray showed bilateral multilobar infiltrates with pulmonary edema which could be cardiogenic versus noncardiogenic, previous sternotomy, troponin of 116. EKG was difficult to interpret however I did not see any ST elevation, he had flipped T waves in 1 and aVL. Impression: 1. Cardiogenic versus septic shock. 2. Acute respiratory failure secondary to pulmonary edema, cardiogenic versus noncardiogenic. 3. Non-ST elevation MD. 4. Neutropenia, not absolute. 5. 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 6. Hyperinflated chest possibly COPD. 7. AK I. Plan: 1. Continue with broad-spectrum antibiotic. 2. Obtain CVP. 3. Central line was placed for IV access. Dictated separately. 4. Cardiology consult for non-ST elevation MD. 5. Continue trending troponin. 6. Neupogen. 7. Levo fed taper. 8. Agree with fentanyl, and propofol. 9. Fluid management per CVP only. 10. Currently the patient is on Zosyn. I would add vancomycin as well. 11. Electrolyte replacement. 12. CPK is elevated out of proportion, unclear to me if the patient has no case of rhabdo as well. 13. Discussed with the and the daughter at the bedside. 14. CODE STATUS still pending. 15. EKG was done and reviewed personally. 16. Discussed with the staff on rounds and details, critical care time spent with the patient was 60 minutes excluding procedure time. Problem Qualifiers (1) Pneumonia: Pneumonia type: due to unspecified organism Laterality: right Lung location : middle lobe of lung Qualified Codes: J18.1 - Lobar pneumonia, unspecified organism (2) Sepsis: Sepsis type: sepsis due to unspecified organism Qualified Codes: A41.9 - Sepsis, unspecified organism
[2018-07-03 06:55] LABS: PTT PATIENT 72.7 SECONDS (21.0-31.0)
[2018-07-03 06:59] LABS: EOS % 0.7 %; EOS ABS # 0.01 K/uL (0-0.5); LYMPH % 22.2 %; MONO % 0.7 %; MONO ABS # 0.01 K/uL (0.11-0.59); NEUT % 76.4 %; NEUT ABS # 1.03 K/uL (1.4-6.5)
[2018-07-03] MEDS ORDERED: PIPERACILL/TAZOBAC IV 4.5 GM in DEXTROSE 5% 100ML 100 ML IV ONE (07:00)
[2018-07-03 07:07] LABS: ALKALINE PHOSPHATASE 96 U/L (45-117); CKMB 297.3 ng/ml (0.5-3.6); PHOSPHORUS 4.8 mg/dl (2.5-4.9); TOTAL PROTEIN 5.9 gm/dl (6.4-8.2)
[2018-07-03] MEDS: ASPIRIN 81 MG ECTAB PO SCH (07:28)
[2018-07-03] MEDS: PANTOprazole INJ 40 MG in SYRINGE 0 ML IV SCH (07:43)
[2018-07-03] MEDS ORDERED: PERFLUTREN LIPID MICROSPHERE (DEFINITY) IV ONE (08:39)
[2018-07-03] MEDS ORDERED: VANCOMYCIN IV 1,000 MG in SODIUM CHLORIDE 0.9% 250ML 250 ML IV SCH (09:00)
[2018-07-03] MEDS ORDERED: GLUCOSE 40% GEL 15 GM TUBE PO PRN (09:15)
[2018-07-03] MEDS ORDERED: GLUCAGON FOR INJ 1 MG VIAL IM PRN (09:15)
[2018-07-03] MEDS ORDERED: GLUCOSE 10 TABS/TUBE PO PRN (09:15)
[2018-07-03] MEDS ORDERED: PHARMACY GLYCEMIC MGMT CONSULT PRN (09:15)
[2018-07-03] MEDS ORDERED: CARBOHYDRATES FOR HYPOGLYCEMIA PO PRN (09:15)
[2018-07-03] MEDS ORDERED: DEXTROSE 50% 50 ML SYR IV PRN (09:15)
[2018-07-03] MEDS ORDERED: VANCOMYCIN IV 1,250 MG in SODIUM CHLORIDE 0.9% 250ML 250 ML IV ONE (09:30)
[2018-07-03] MEDS ORDERED: MAGNESIUM SULFATE 1GM / D5W 100 ML IV SCH (09:45)
[2018-07-03] MEDS: FENTANYL 1250MCG/250ML NSS 250 ML IV SCH ×2 (09:48→21:33)
--- NOTE | 2018-07-03 09:48 | Progress Note ---
Subjective Date of Service: Jul 03, 2018. Subjective Pt evaluation today including: physical exam, chart review, lab review, review of studies (cxr, etc), conversation w/ eligibility consultant (critical care), review of inpatient medication list Pain: abdomen - generalized PO Intake: npo Voiding: simpson catheter in place patient intubated/sedated; unable to illicit any ROS or history echo pending from this AM Problem List Medical Problems: (1) Acute respiratory failure with hypoxia Status: Acute (2) Anemia Status: Acute (3) Hypotension Status: Acute (4) Lactic acidosis Status: Acute (5) Pneumonia Status: Acute (6) Sepsis Status: Acute Objective Vital Signs Date Time Temp Pulse Resp B/P (MAP) Pulse Ox O2 Delivery O2 Flow Rate FiO2 07/03/18 08:00 98 Mechanical Ventilator 30 07/03/18 08:00 30 07/03/18 08:00 36.5 80 12 113/72 (86) 98 Mechanical Ventilator 30 07/03/18 07:28 30 07/03/18 06:31 87 10 121/73 (89) 97 07/03/18 06:16 87 9 116/70 (83) 96 07/03/18 06:01 90 13 120/65 (82) 96 07/03/18 06:00 Mechanical Ventilator 30 07/03/18 06:00 30 07/03/18 05:35 30 07/03/18 05:05 100 Mechanical Ventilator 30 Physical Exam General Appearance: + mild distress (when abdomen is palpable ), + pertinent finding (sedated) ENT: + pertinent finding (ETT in place, enteric tube in place) Neck: + JVD (to the jaw) Respiratory/Chest: no respiratory distress, no accessory muscle use, + decreased breath sounds (bases), + crackles (bases) Cardiovascular: regular rate, rhythm, no gallop, + systolic murmur (1/6 LSB), + extra beats, + pertinent finding (sternal scar; pacemaker left upper chest) Abdomen: + distended, + tenderness (generalized, shifting in bed when I palpated his abdomen; over the right side of abdomen there is more distension than the left abdomen), + pertinent finding (large scar mid abdomen) Extremities: no pedal edema, + pertinent finding (pulses - <1+, cool feet) Neurologic/Psychiatric: + pertinent finding (sedated) Skin: + pallor Laboratory Results Last 24 Hours Test 07/03/18 05:35 07/03/18 05:57 07/03/18 06:14 07/03/18 06:59 White Blood Count 1.35 K/uL Red Blood Count 2.83 M/uL Hemoglobin 8.0 g/dL Hematocrit 24.9 % Mean Corpuscular Volume 88.0 fL Mean Corpuscular Hemoglobin 28.3 pg Mean Corpuscular Hemoglobin Concent 32.1 g/dl Platelet Count 170 K/uL Mean Platelet Volume 11.1 fL Neutrophils (%) (Auto) 76.4 % Lymphocytes (%) (Auto) 22.2 % Monocytes (%) (Auto) 0.7 % Eosinophils (%) (Auto) 0.7 % Basophils (%) (Auto) 0.0 % Neutrophils # (Auto) 1.03 K/uL Lymphocytes # (Auto) 0.30 K/uL Monocytes # (Auto) 0.01 K/uL Eosinophils # (Auto) 0.01 K/uL Basophils # (Auto) 0.00 K/uL RDW Standard Deviation 56.0 fL RDW Coefficient of Variation 17.6 % Immature Granulocyte % (Auto) 0.0 % Immature Granulocyte # (Auto) 0.00 K/uL Dohle Bodies 1+ Giant Platelets 2+ Echinocytes 1+ Prothrombin Time 14.3 SECONDS Prothromb Time International Ratio 1.4 Activated Partial Thromboplast Time 72.7 SECONDS Partial Thromboplastin Ratio 2.8 Sodium Level 136 mmol/L Potassium Level 3.5 mmol/L Chloride Level 103 mmol/L Carbon Dioxide Level 20 mmol/L Anion Gap 13.0 mmol/L Blood Urea Nitrogen 44 mg/dl Creatinine 1.50 mg/dl Est Creatinine Clear Calc Drug Dose 36.1 ml/min Estimated GFR () 49.2 Estimated GFR (Non- 42.4 BUN/Creatinine Ratio 29.6 Random Glucose 178 mg/dl Lactic Acid Level 3.2 mmol/L Calcium Level 7.1 mg/dl Phosphorus Level 4.8 mg/dl Magnesium Level 1.5 mg/dl Total Bilirubin 1.3 mg/dl Direct Bilirubin 1.0 mg/dl Aspartate Amino Transf (AST/SGOT) 338 U/L Alanine Aminotransferase (ALT/SGPT) 55 U/L Alkaline Phosphatase 96 U/L Total Creatine Kinase 2190 U/L Creatine Kinase MB 297.3 ng/ml Creatine Kinase MB Ratio 13.6 Troponin I 116.000 ng/ml Pro-B-Type Natriuretic Peptide > 70648 pg/ml Total Protein 5.9 gm/dl Albumin 2.2 gm/dl Lipase 32 U/L Procalcitonin 5.10 ng/ml Blood Gas Sample Site L Radial Bedside Blood Gas pH (LAB) 7.40 Bedside Blood Gas pCO2 (LAB) 31 mmHg Bedside Blood Gas pO2 (LAB) 70 mmHg Bedside Blood Gas HCO3 (LAB) 19 meq/L Bedside Blood Gas Total CO2 20 mEq/l Bedside Blood Gas Base Excess (LAB) -6.0 meq/L Bedside Blood Gas O2 Saturation 94.0 % Elia Test Pass Oxygen Delivery Device Ventilator Bedside Oxygen Rate (breaths/min) 12 Blood Gas Minute Ventilation 7.0 Bedside FiO2 30 % Blood Gas Tidal Volume 500 Blood Gas PEEP 5 Random Vancomycin Level 9.7 mcg/ml Assessment and Plan 82yo male - 1. 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 2. acute hypoxic respiratory failure 2nd to pneumonia + acute CHF. 3. NSTEMI with markedly elevated troponin with prior h/o CABG. 4. lactic acidosis. 5. neutropenia presumably 2nd to cancer and/or chemotherapy for such? 6. anemia. 7. abdominal pain with abdominal distension - ischemic process? lipase wnl. LFTs elevated but suspect this is due to acute CHF (ast may also be elevated 2nd to elevated CPK). 8. pacemaker status. 9. acute kidney injury. 10. shock, 2nd to sepsis and likely cardiogenic as well. 11. T2DM. 12. coagulopathy - 2nd to liver dysfunction? Although PTT is much more elevated than PT/INR. Platelets normal; doubt DIC but low threshold to check DIC panel. 13. hypomagnesemia. Agree w/ palliative care consultation to determine goals of care in this critically ill patient with numerous comorbidities. STAT 2-view abdominal x-ray; if nondiagnostic then consider CT abd/pelvis. Replace low magnesium. Await echo. Consider PRBCs in light of shock and cardiac dysfunction. Consider dobutamine if echo shows depressed EF. Continue broad-spectrum IV abx. Serial labs. [facility] Follow cultures. Family updated by ICU staff. Elder Clark MD Continued [facility] stay due to: abnormal vital signs, multiple IV medications needed Discharge planning: uncertain
[2018-07-03] MEDS: POTASSIUM CHLR 10 MEQ / WTR 100 ML IV SCH ×4 (09:50→13:12)
--- NOTE | 2018-07-03 09:57 | Pharmacy Progress Note ---
Pharmacy Abx Dose Short Note Date of Service Jul 03, 2018. Assessment & Plan Assessment * 82 year old male transferred from [facility] for acute hypoxemic hypercapnic respiratory failure and hypotension, concern for septic shock and/ or cardiogenic shock * Pt is now intubated, sedated, receiving IV pressors (norepi), MAPs > 65 * Empiric ABX therapy initiated w/ Vancomycin + Zosyn. Doses of each were given at [facility] prior to transfer. * BLCX's ordered, nasal swab pending * CXR suggestive of pulm edema with scattered b/l airspace opacities that could represent pulm edema vs superimposed pna * Procal 5.1 * Trop 116, proBNP >35,000 Plan Vancomycin: * Random vancomycin level ordered this AM to determine if vancomycin can be redosed as dose and timing of vanco given at [facility] uncertain * Random level = 9.7mcg/mL, this level is subtherapeutic * Will given 1250mg IV x 1 STAT this AM to quickly achieve therapeutic level * Repeat random level w/ AM labs tomorrow as I anticipate renal clearance to be slow given poor U.O. and elevated SCr * I do estimate half-life to be > 20 hours Zosyn: * eCrCl 35cc/min or less * given severity of illness, begin treatment w/ 4.5gm ext-infusion Q 8 hours. may need to decrease to Q 12 hr dosing if renal fxn declines - will reassess tomorrow Pharmacy will continue to follow and will adjust dose/frequency as necessary. Thank you.
[2018-07-03 10:20] LABS: PTT PATIENT 40.8 SECONDS (21.0-31.0)
--- NOTE | 2018-07-03 10:23 | Pharmacy Progress Note ---
Pharmacy Glycemic Short Note 2 Date of Service Jul 03, 2018. OUTPATIENT ANTIDIABETIC REGIMEN: * No prior dx DM ASSESSMENT: * Critically ill patient, currently in ICU for resp failure, septic shock and/ or cardiogenic shock * Multiple severe stressors: pressors, mech vent, etc. * Glu has been less than 180 thus far but last result was 178- will initiate sliding scale coverage at this time * Would have a low threshold for staring IV insulin drip in this patient due to concerns w/ SQ absorption in the setting of pressor use as well as less ability to quickly obtain glycemic goals PLAN FOR INPATIENT GLYCEMIC CONTROL: * BSGs Q 6 hrs using iSTAT if receiving pressors * Basal insulin * None at this time, however if BSG's 180-219 x 2, will initiate Lantus * Bolus insulin * NovoLog per scale Q6hrs while NPO * Goal Range: Low 130 mg/dL - High 160 mg/dL * Correction Factor: 25 mg/dL/unit * Nutritional / Prandial insulin: none at this time * If BSGs > 220 x 1 begin IV insulin drip per severe stress protocol: goal range 110-180mg/dL
--- NOTE | 2018-07-03 10:31 | DIAGNOSTIC IMAGING REPORT ---
ABDOMEN 2 VIEWS CLINICAL HISTORY: Abdominal distention and tenderness. COMPARISON STUDY: CT of the abdomen and pelvis May 09, 2018. FINDINGS: Tip of nasogastric tube is within the body of the stomach. Endotracheal tube is in place. There is a dual lead left subclavian pacemaker, median sternotomy wires and clips from bypass grafting. Interstitial thickening and bilateral airspace opacities are noted. No free air is evident on the upright projection. Right hip arthroplasty is incidentally noted. A moderate amount stool is noted within the colon. Note is made of multiple loops of moderately dilated gas-filled small bowel. Small amount of colonic gas is noted. IMPRESSION: 1. Moderate small bowel dilatation. The findings favor a small bowel obstruction. An ileus could appear similar although is considered less likely. 2. No free air. 3. Interstitial thickening suggestive of pulmonary edema with airspace opacities which may reflect pulmonary edema or superimposed infectious process. 4. Tip of nasogastric tube within body of stomach. Electronically signed by: Shabbir Jansen M.D. 07/03/2018 10:30 AM Dictated Date/Time: 07/03/2018 10:27 AM
[2018-07-03] MEDS ORDERED: INSULIN ASPART 100 UNITS/ML 3 ML PEN SC SCH (11:00)
[2018-07-03] MEDS: HEPARIN SOD 5000 UNIT/0.5 ML CARP SQ SCH ×3 (11:04→21:23)
--- NOTE | 2018-07-03 11:32 | ECHOCARDIOGRAM REPORT ---
*NOTICE TO RECEIVING REPUBL[employer] AGENCY This information is strictly Confidential and protected under [place] law. [place] law prohibits you from making any further disclosure of this information unless further disclosure is expressly permitted by the written consent of the person to whom it pertains or is authorized by law. A general authorization for the release of medical or other information is not sufficient for this purpose. Hospital accepts no responsibility if the information is made available to any other person, INCLUDING THE PATIENT. Interpretation Summary * Name: NIKOLAY HANDY Study Date: 07/03/2018 08:03 AM BP: 113/72 mmHg * Patient Location: .MSICU\S\E111\S\1 HR: 78 * : 1935 (M/d/yyyy) Gender: Male Height: 68 in * Age: 82 yrs Ethnicity: CA Weight: 170 lb * Ordering Physician: Boris Chin * Referring Physician: UNKNOWN * Performed By: Sindi Raines RDCS * * Reason For Study: CHF * BSA: 1.9 m2 * -- Conclusions -- * 1. Normal left ventricular size with moderately to severely reduced systolic function. EF 30-35%. Akinesis involving the basal anteroseptum, inferolateral, mid anterolateral, and mid to distal anterior wall segments. Otherwise, global hypokinesis. No left ventricular hypertrophy. * 2. The left atrium is moderately dilated. * 3. Moderate to severe mitral regurgitation. * 4. There is mild to moderate tricuspid regurgitation. * 5. Moderately to severely elevated right ventricular systolic pressure; RVSP 59 mmHg. * 6. Technically difficult study, enhanced with IV Definity. * 7. No prior study available for comparison. Procedure Details * A contrast injection of Definity was performed to improve assessment of LV function. * Contrast was injected into an intravenous site in the right arm. * One vial of Definity ultrasound contrast was diluted in normal saline to a total volume of 10 ml. A total of '2' ml of solution was administered during imaging. * Lot # [id number] of Definity utilized for procedure. * Expiration date JUN 14. * The attending nurse who injected the contrast agent was ROSCOE JARQUIN. Left Ventricle * Normal left ventricular size with moderately to severely reduced systolic function. EF 30-35%. Akinesis involving the basal anteroseptum, inferolateral, mid anterolateral, and mid to distal anterior wall segments. Otherwise, global hypokinesis. No left ventricular hypertrophy. Right Ventricle * The right ventricle is grossly normal size. * The right ventricular systolic function is reduced as assessed by tricuspid annular plane systolic excursion (TAPSE) (TAPSE <1.6 cm). Atria * The left atrium is moderately dilated. * Right atrial size is normal. * There is no evidence of atrial septal defect, but resolution does not allow assessment for a patent foramen ovale. Mitral Valve * There is moderate mitral annular calcification. * There is no mitral valve stenosis. * Moderate to severe mitral regurgitation. Tricuspid Valve * The tricuspid valve is not well visualized, but is grossly normal. * There is no tricuspid stenosis. * There is mild to moderate tricuspid regurgitation. Aortic Valve * The aortic valve is not well visualized. * No hemodynamically significant valvular aortic stenosis. * There is no significant aortic regurgitation. Pulmonic Valve * The pulmonary valve is inadequately visualized, but the Doppler data is adequate for interpretation. * There is no pulmonic valvular stenosis. * There is no significant pulmonary regurgitation. Great Vessels * The aortic root is normal size. Pericardium/Pleural * There is no pericardial effusion. Great Vessels * Dilated IVC with reduced inspiratory collapse. MMode 2D Measurements and Calculations IVSd 0.87 cm IVSs 0.94 cm LVIDd 4.9 cm LVIDs 4.5 cm LVPWd 0.96 cm LVPWs 1.1 cm IVS/LVPW 0.90 FS 6.5 % EDV(Teich) 110.4 ml ESV(Teich) 94.3 ml EF(Teich) 14.6 % EDV(cubed) 114.5 ml ESV(cubed) 93.5 ml EF(cubed) 18.3 % % IVS thick 8.4 % % LVPW thick 9.6 % LV mass(C)d 153.7 grams LV mass(C)dI 80.6 grams/m\S\2 LV mass(C)s 154.6 grams LV mass(C)sI 81.1 grams/m\S\2 SV(Teich) 16.1 ml SI(Teich) 8.4 ml/m\S\2 SV(cubed) 21.0 ml SI(cubed) 11.0 ml/m\S\2 Ao root diam 3.5 cm Ao root area 9.9 cm\S\2 LVAd ap4 39.5 cm\S\2 LVLd ap4 9.3 cm EDV(MOD-sp4) 143.3 ml EDV(sp4-el) 143.4 ml LVAs ap4 30.5 cm\S\2 LVLs ap4 8.4 cm ESV(MOD-sp4) 99.0 ml ESV(sp4-el) 95.2 ml EF(MOD-sp4) 30.9 % EF(sp4-el) 33.6 % LVAd ap2 49.7 cm\S\2 LVLd ap2 9.9 cm EDV(MOD-sp2) 217.4 ml EDV(sp2-el) 212.7 ml LVAs ap2 36.9 cm\S\2 LVLs ap2 8.7 cm ESV(MOD-sp2) 138.0 ml ESV(sp2-el) 132.2 ml EF(MOD-sp2) 36.5 % EF(sp2-el) 37.9 % LVLd %diff 5.1 % EDV(MOD-bp) 195.9 ml LVLs %diff -0.30 % ESV(MOD-bp) 99.8 ml EF(MOD-bp) 49.0 % SV(MOD-sp4) 44.3 ml SI(MOD-sp4) 23.2 ml/m\S\2 SV(MOD-sp2) 79.4 ml SI(MOD-sp2) 41.6 ml/m\S\2 SV(MOD-bp) 96.1 ml SI(MOD-bp) 50.4 ml/m\S\2 SV(sp4-el) 48.2 ml SI(sp4-el) 25.3 ml/m\S\2 SV(sp2-el) 80.5 ml SI(sp2-el) 42.2 ml/m\S\2 Doppler Measurements and Calculations MV E max junior 119.7 cm/sec MV dec time 0.18 sec Ao V2 max 88.0 cm/sec Ao max PG 3.1 mmHg Ao max PG (full) 1.7 mmHg LV V1 max PG 1.4 mmHg LV V1 max 58.2 cm/sec MR max junior 510.1 cm/sec MR max PG 104.1 mmHg MR mean junior 387.2 cm/sec MR mean PG 65.9 mmHg MR VTI 139.8 cm TR max junior 329.8 cm/sec RVSP(TR) 58.5 mmHg RAP systole 15.0 mmHg
[2018-07-03] MEDS: INSULIN ASPART 100 UNITS/ML 3 ML PEN SC SCH ×3 (12:00→23:39)
--- NOTE | 2018-07-03 12:21 | DIAGNOSTIC IMAGING REPORT ---
CHEST ONE VIEW PORTABLE CLINICAL HISTORY: S/P right IJ - r/o PNX COMPARISON STUDY: 07/03/2018 FINDINGS: Mild stable cardiomegaly. Prior median sternotomy. Nasogastric tube placed in the gastric fundus. Endotracheal tube 5 cm above the morgan. Unchanging prominence of pulmonary vasculature. IMPRESSION: 1. Central catheter place in superior vena cava. 2. No evidence pneumothorax. 3. Unchanging components of congestive failure. The above report was generated using voice recognition software. It may contain grammatical, syntax or spelling errors. Electronically signed by: Inderjit Miller M.D. 07/03/2018 12:19 PM Dictated Date/Time: 07/03/2018 12:19 PM
--- NOTE | 2018-07-03 12:44 | Procedure Note ---
Procedure Note Procedure Date Jul 03, 2018. Procedure Description Procedure Name: Central line placement. Procedure time out: side/site verified, patient ID confirmed, correct procedure Consent obtained: written Performed by: attending Indications: diagnostic, therapeutic Contraindications: none Description: Central line placement was done due to the need for pressors and multiple blood drawing in a patient who is already vented. Consent obtained from the daughter over the phone Florinda, risk and benefit explained in details, agreed to the procedure. The patient was placed in supine position, under strict sterile field the procedure was done in the ICU, the patient was prepped with chlorhexidine at the anterior IJ site, injected with total of 5 mL 1% lidocaine, using ultrasound guidance, the patient had the procedure done with Seldinger technique , no scalpel was used, only a dilator and a central line was placed to 16 cm, secured with 2 sutures, and flushed with normal saline, chest x-ray confirmed the position of the central line with no pneumothorax, and the tip at the SVC. Patient tolerated the procedure very well. The line was dressed with proper surgical dressing. No immediate complication. Complications: none Patient tolerated procedure: well
[2018-07-03] MEDS ORDERED: FILGRASTIM 480 MCG/1.6 ML VIAL SC ONE (12:45)
[2018-07-03] MEDS: ALBUT/IPRATROP 3MG/0.5MG NEB 3 ML VIAL INH SCH ×2 (14:24→18:53)
--- NOTE | 2018-07-03 14:39 | Palliative Care Consultation ---
Consultation Date of Consultation: Jul 03, 2018. Requesting Physician: Harlan Mccloud PA-C Attending Physician: Dr. 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 History obtained from record and report as patient is intubated/sedated. Apparently the patient sustained a fall from height the night prior to arrival. He was found in the bathroom floor by family and was brought to the emergency department at which time he was found to be in extreme pain. He was treated with multiple doses of pain medication including fentanyl and Dilaudid. He was aggressively hydrated with IV fluids secondary to tachycardia, hypotension, and fever with concerns of RIGHT middle lobe pneumonia. Patient was found to be neutropenic as well as anemic. His BNP was greater than 22,000, lactic acid was initially 6.1 which declined to 4. During treatment, the patient complained of increasing shortness of breath and was found to be extremely hypoxic. Eventually, the patient required endotracheal intubation for airway management. Previously, the patient had been a DNR/DNI, however this decision had apparently been reversed by family. He was medicated with etomidate and succinylcholine prior to intubation. Patient was placed on a propofol drip. He received IV vancomycin and Zosyn. CTA of the chest was obtained and demonstrated no PE, however, groundglass opacities consistent with possible infiltrative change versus metastatic process was evaluated on chest CT. Upon arrival in the ICU, the patient was intubated and sedated, which he remains. He was placed on norepinephrine en route which continues to infuse-- pressures remain soft. His abdomen is distended and tender-- hospitalist is ordering further workup. Consent for central line placement was obtained by ICU physician and SENA from patient's daughter, Florinda Gee. Family will be in later to discuss goals of care, palliative care is consulted to add supportive layer of care. Patient was seen and examined in room 111. He is intubated and sedated with propofol. He did have some facial grimacing during exam, he did not follow commands. Patient was discussed at length this morning at ICU rounds. His troponin is 116. Echocardiogram completed, EF 30-35%, akinesis involving basal anteroseptum, inferolateral, mid anterolateral, and mid to distal anterior wall segments. Otherwise global hypokinesis, no LVH. Cardiogenic vs. septic shock. Prognosis seems poor at this point. Awaiting family to arrive to further discuss goals of care. 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 BPH Prostate cancer Social History Smoking Status: Current Every Day Smoker Drug Use: none Marital Status: other Occupation Status: retired Review of Systems unable to obtain due to intubation/sedation Allergies Coded Allergies: Dipyridamole (Unverified Allergy, Unknown, unknown, 06/12/18) Erythromycin (Unverified Allergy, Unknown, unknown, 06/12/18) Uncoded Allergies: constrast dye (Allergy, Intermediate, rash, 04/08/16) Medications Current Inpatient Medications Medications (Trade) Dose Ordered Sig/Alen Route Start Time Stop Time Status Last Admin Dose Admin Heparin Sodium (Porcine) (Heparin Sq 5000 Unit/0.5ml) 5,000 unit Q8 SQ 07/03/18 08:00 08/02/18 07:59 07/03/18 11:04 5,000 UNIT Pantoprazole Sodium 40 mg/ Syringe 10 ml @ 5 mls/min DAILY IV 07/03/18 09:00 08/02/18 08:59 07/03/18 07:43 5 MLS/MIN Miscellaneous Information (Icu Protocol For Hyperglycemia) 1 ea PRN PRN N/A 07/03/18 05:45 07/05/18 05:44 Propofol (Diprivan Iv Emulsion 100ml Vial) 1 dose PRN PRN IV 07/03/18 05:59 07/06/18 05:58 07/03/18 07:27 1 DOSE Aspirin (Ecotrin Tab) 81 mg DAILY PO 07/03/18 09:00 08/02/18 08:59 07/03/18 07:28 81 MG Vancomycin HCl (Consult) 1 ea UD PRN N/A 07/03/18 05:45 08/02/18 05:44 Miscellaneous Information (Consult) 1 ea UD PRN N/A 07/03/18 05:45 08/02/18 05:44 Norepinephrine Bitartrate 16 mg/ Dextrose 516 ml @ 0 mls/hr Q0M PRN IV 07/03/18 06:00 08/02/18 05:59 07/03/18 06:00 14.5 MLS/HR Fentanyl Citrate 250 ml @ 15 mls/hr [id number] IV 07/03/18 09:15 07/17/18 09:14 07/03/18 09:48 15 MLS/HR Vancomycin HCl 1250 mg/Sodium Chloride 275 ml @ 125 mls/hr ONE ONCE IV 07/03/18 09:30 07/03/18 11:41 07/03/18 09:49 125 MLS/HR Potassium Chloride 100 ml @ 100 mls/hr Q1H IV 07/03/18 09:14 07/03/18 13:13 07/03/18 11:02 100 MLS/HR Magnesium Sulfate 100 ml @ 100 mls/hr TODAY@0945 IV 07/03/18 09:45 07/03/18 18:00 07/03/18 09:49 100 MLS/HR Miscellaneous Information (Consult Glycemic Management Pharmacy) 1 ea UD PRN N/A 07/03/18 09:15 08/02/18 09:14 Glucose (Glucose 40% Gel) 15-30 GRAMS 15 GRAMS... UD PRN PO 07/03/18 09:15 08/02/18 09:14 Glucose (Glucose Chew Tab) 4-8 Tablets 4 Tabl... UD PRN PO 07/03/18 09:15 08/02/18 09:14 Dextrose (Dextrose 50% 50ML Syringe) 25-50ML 25ML FOR ... UD PRN IV 07/03/18 09:15 08/02/18 09:14 Glucagon (Glucagon Inj) 1 mg UD PRN IM 07/03/18 09:15 08/02/18 09:14 Carbohydrates (Carbohydrates For Hypoglycemia) 15-30 GRAMS 15 grams if BSG 54-69... UD PRN PO 07/03/18 09:15 08/02/18 09:14 Piperacillin Sod/ Tazobactam Sod 4.5 gm/Dextrose 120 ml @ 30 mls/hr Q8H IV 07/03/18 16:00 07/10/18 15:59 Insulin Aspart (novoLOG ASPART) SLIDING SCALE Q6 SC 07/03/18 12:00 08/02/18 11:59 Physical Exam Date Time Temp Pulse Resp B/P (MAP) Pulse Ox O2 Delivery O2 Flow Rate FiO2 07/03/18 10:00 36.5 74 24 92/59 (70) 99 Mechanical Ventilator 30 07/03/18 08:00 98 Mechanical Ventilator 30 07/03/18 08:00 30 07/03/18 08:00 36.5 80 12 113/72 (86) 98 Mechanical Ventilator 30 07/03/18 07:28 30 07/03/18 06:31 87 10 121/73 (89) 97 07/03/18 06:16 87 9 116/70 (83) 96 07/03/18 06:01 90 13 120/65 (82) 96 07/03/18 06:00 Mechanical Ventilator 30 07/03/18 06:00 30 07/03/18 05:35 30 07/03/18 05:05 100 Mechanical Ventilator 30 General Appearance: no apparent distress, + pertinent finding (frail, critically ill appearing) ENT: + pertinent finding (ETT present) Neck: no JVD Respiratory: no respiratory distress, no accessory muscle use, + decreased breath sounds, + rhonchi Cardiovascular: regular rate, rhythm, + pertinent finding (weak peripheral pulses. +3 pitting edema to BLE) Abdomen: normal bowel sounds, + distended Neurologic/Psychiatric: + pertinent finding (sedated/mostly obtunded) Skin: + pallor (markedly pale) Laboratory Results Last 24 Hours Test 07/03/18 05:57 07/03/18 06:14 07/03/18 06:59 07/03/18 09:58 White Blood Count 1.35 K/uL Red Blood Count 2.83 M/uL Hemoglobin 8.0 g/dL Hematocrit 24.9 % Mean Corpuscular Volume 88.0 fL Mean Corpuscular Hemoglobin 28.3 pg Mean Corpuscular Hemoglobin Concent 32.1 g/dl Platelet Count 170 K/uL Mean Platelet Volume 11.1 fL Neutrophils (%) (Auto) 76.4 % Lymphocytes (%) (Auto) 22.2 % Monocytes (%) (Auto) 0.7 % Eosinophils (%) (Auto) 0.7 % Basophils (%) (Auto) 0.0 % Neutrophils # (Auto) 1.03 K/uL Lymphocytes # (Auto) 0.30 K/uL Monocytes # (Auto) 0.01 K/uL Eosinophils # (Auto) 0.01 K/uL Basophils # (Auto) 0.00 K/uL RDW Standard Deviation 56.0 fL RDW Coefficient of Variation 17.6 % Immature Granulocyte % (Auto) 0.0 % Immature Granulocyte # (Auto) 0.00 K/uL Dohle Bodies 1+ Giant Platelets 2+ Echinocytes 1+ Prothrombin Time 14.3 SECONDS Prothromb Time International Ratio 1.4 Activated Partial Thromboplast Time 72.7 SECONDS 40.8 SECONDS Partial Thromboplastin Ratio 2.8 1.6 Sodium Level 136 mmol/L Potassium Level 3.5 mmol/L Chloride Level 103 mmol/L Carbon Dioxide Level 20 mmol/L Anion Gap 13.0 mmol/L Blood Urea Nitrogen 44 mg/dl Creatinine 1.50 mg/dl Est Creatinine Clear Calc Drug Dose 36.1 ml/min Estimated GFR () 49.2 Estimated GFR (Non- 42.4 BUN/Creatinine Ratio 29.6 Random Glucose 178 mg/dl Lactic Acid Level 3.2 mmol/L Calcium Level 7.1 mg/dl Phosphorus Level 4.8 mg/dl Magnesium Level 1.5 mg/dl Total Bilirubin 1.3 mg/dl Direct Bilirubin 1.0 mg/dl Aspartate Amino Transf (AST/SGOT) 338 U/L Alanine Aminotransferase (ALT/SGPT) 55 U/L Alkaline Phosphatase 96 U/L Total Creatine Kinase 2190 U/L Creatine Kinase MB 297.3 ng/ml Creatine Kinase MB Ratio 13.6 Troponin I 116.000 ng/ml Pro-B-Type Natriuretic Peptide > 39214 pg/ml Total Protein 5.9 gm/dl Albumin 2.2 gm/dl Lipase 32 U/L Procalcitonin 5.10 ng/ml Blood Gas Sample Site L Radial Bedside Blood Gas pH (LAB) 7.40 Bedside Blood Gas pCO2 (LAB) 31 mmHg Bedside Blood Gas pO2 (LAB) 70 mmHg Bedside Blood Gas HCO3 (LAB) 19 meq/L Bedside Blood Gas Total CO2 20 mEq/l Bedside Blood Gas Base Excess (LAB) -6.0 meq/L Bedside Blood Gas O2 Saturation 94.0 % Elia Test Pass Oxygen Delivery Device Ventilator Bedside Oxygen Rate (breaths/min) 12 Blood Gas Minute Ventilation 7.0 Bedside FiO2 30 % Blood Gas Tidal Volume 500 Blood Gas PEEP 5 Random Vancomycin Level 9.7 mcg/ml Assessment & Plan Palliative Performance Scale: 20 % Problem list: Metastatic [place] cell carcinoma Respiratory failure with hypoxia Cardiogenic vs. septic shock Goals of care Palliative care recs: -Patient is full resuscitation per report as decided by the family. -He remains intubated, sedated, and on pressors in the ICU. Treatment continues for cardiogenic vs. septic shock. -Family consented for central line placement. -Uncertain of long-term goals. Awaiting family to arrive to further discuss prognosis, goals, etc. Thank you kindly for this consult. I will follow as needed. Total time spent 50 minutes with >50% of time spent at bedside with patient and ICU physicians/staff discussing medical conditions and coordinating care.
[2018-07-03 14:43] LABS: CKMB 328.5 ng/ml (0.5-3.6)
[2018-07-03] MEDS: PIPERACILL/TAZOBAC IV 4.5 GM in DEXTROSE 5% 100ML 100 ML IV SCH ×2 (16:48→23:39)
[2018-07-03] MEDS ORDERED: NURSING VERBAL MED ORDER ONE (17:00)
[2018-07-03] MEDS: SODIUM CHLORIDE 0.9% 1000ML 1,000 ML IV SCH (17:00)
--- NOTE | 2018-07-03 17:54 | Cardiology Consultation ---
Cardiology Consultation Date of Consultation: Jul 03, 2018. History of Present Illness This is a resident note. Full HPI not able to be attained because pt is intubated and family was not present. The following information was gathered from previous notes. 82 y/o M with PMH of [place] cell ca with mets to lung and abdomen, prostate ca, CABG, CAD, DM2, dyslipidemia, and atrial flutter. Last night, pt had fall and was discovered in bathroom by family. Brought into ER and found to be in extreme pain, tachy, hypotensive, and with fever. Given dilaudid, fentanyl, and IV fluids. Also, found to have neutropenia (>22,000) and increased LA (6.1 -->4) . Started on IV vanco and zosyn. CXR showed RML infiltrate, CTA was negative for any PE's. Echo done today showed reduced systolic function, EF 30-35%, and global hypokinesis. Social History Smoking Status: Current Every Day Smoker History of Alcohol Use: No Allergies Coded Allergies: Dipyridamole (Unverified Allergy, Unknown, unknown, 06/12/18) Erythromycin (Unverified Allergy, Unknown, unknown, 06/12/18) Uncoded Allergies: constrast dye (Allergy, Intermediate, rash, 04/08/16) Medications Current Inpatient Medications Medications (Trade) Dose Ordered Sig/Alen Route Start Time Stop Time Status Last Admin Dose Admin Heparin Sodium (Porcine) (Heparin Sq 5000 Unit/0.5ml) 5,000 unit Q8 SQ 07/03/18 08:00 08/02/18 07:59 07/03/18 16:28 5,000 UNIT Pantoprazole Sodium 40 mg/ Syringe 10 ml @ 5 mls/min DAILY IV 07/03/18 09:00 08/02/18 08:59 07/03/18 07:43 5 MLS/MIN Miscellaneous Information (Icu Protocol For Hyperglycemia) 1 ea PRN PRN N/A 07/03/18 05:45 07/05/18 05:44 Propofol (Diprivan Iv Emulsion 100ml Vial) 1 dose PRN PRN IV 07/03/18 05:59 07/06/18 05:58 07/03/18 07:27 1 DOSE Aspirin (Ecotrin Tab) 81 mg DAILY PO 07/03/18 09:00 08/02/18 08:59 07/03/18 07:28 81 MG Vancomycin HCl (Consult) 1 ea UD PRN N/A 07/03/18 05:45 08/02/18 05:44 Miscellaneous Information (Consult) 1 ea UD PRN N/A 07/03/18 05:45 08/02/18 05:44 Norepinephrine Bitartrate 16 mg/ Dextrose 516 ml @ 0 mls/hr Q0M PRN IV 07/03/18 06:00 08/02/18 05:59 07/03/18 06:00 14.5 MLS/HR Fentanyl Citrate 250 ml @ 15 mls/hr [id number] IV 07/03/18 09:15 07/17/18 09:14 07/03/18 09:48 15 MLS/HR Magnesium Sulfate 100 ml @ 100 mls/hr TODAY@0945 IV 07/03/18 09:45 07/03/18 18:00 07/03/18 09:49 100 MLS/HR Miscellaneous Information (Consult Glycemic Management Pharmacy) 1 ea UD PRN N/A 07/03/18 09:15 08/02/18 09:14 Glucose (Glucose 40% Gel) 15-30 GRAMS 15 GRAMS... UD PRN PO 07/03/18 09:15 08/02/18 09:14 Glucose (Glucose Chew Tab) 4-8 Tablets 4 Tabl... UD PRN PO 07/03/18 09:15 08/02/18 09:14 Dextrose (Dextrose 50% 50ML Syringe) 25-50ML 25ML FOR ... UD PRN IV 07/03/18 09:15 08/02/18 09:14 Glucagon (Glucagon Inj) 1 mg UD PRN IM 07/03/18 09:15 08/02/18 09:14 Carbohydrates (Carbohydrates For Hypoglycemia) 15-30 GRAMS 15 grams if BSG 54-69... UD PRN PO 07/03/18 09:15 08/02/18 09:14 Piperacillin Sod/ Tazobactam Sod 4.5 gm/Dextrose 120 ml @ 30 mls/hr Q8H IV 07/03/18 16:00 07/10/18 15:59 07/03/18 16:48 30 MLS/HR Insulin Aspart (novoLOG ASPART) SLIDING SCALE Q6 SC 07/03/18 12:00 08/02/18 11:59 Chlorhexidine Gluconate (Peridex Oral Soln) 15 ml DAILY MT 07/04/18 09:00 08/03/18 08:59 Artificial Tears (Artificial Tears) 2 drops DAILY OP 07/04/18 09:00 08/03/18 08:59 Albuterol/ Ipratropium (Duoneb) 3 ml Q6R INH 07/03/18 15:00 08/02/18 14:59 07/03/18 14:24 3 ML Sodium Chloride 1,000 ml @ 100 mls/hr Q10H IV 07/03/18 17:00 08/02/18 16:59 Physical Exam Vital Signs Past 12 Hours Date Time Temp Pulse Resp B/P (MAP) Pulse Ox O2 Delivery O2 Flow Rate FiO2 07/03/18 15:00 36.4 67 25 104/62 (76) 98 Mechanical Ventilator 30 07/03/18 14:26 30 07/03/18 14:00 36.4 67 23 98/64 (75) Mechanical Ventilator 30 07/03/18 13:00 36.4 64 23 85/57 (66) Mechanical Ventilator 30 07/03/18 12:00 36.5 66 23 81/53 (62) 98 Mechanical Ventilator 30 07/03/18 12:00 30 07/03/18 11:09 30 07/03/18 11:00 36.5 72 24 92/59 (70) 99 Mechanical Ventilator 30 07/03/18 10:00 36.5 74 24 92/59 (70) 99 Mechanical Ventilator 30 07/03/18 09:00 36.5 79 12 104/65 (78) 98 Mechanical Ventilator 30 07/03/18 08:00 Mechanical Ventilator 30 07/03/18 08:00 98 Mechanical Ventilator 30 07/03/18 08:00 30 07/03/18 08:00 36.5 80 12 113/72 (86) 98 Mechanical Ventilator 30 07/03/18 07:28 30 07/03/18 06:31 87 10 121/73 (89) 97 07/03/18 06:16 87 9 116/70 (83) 96 07/03/18 06:01 90 13 120/65 (82) 96 07/03/18 06:00 Mechanical Ventilator 30 07/03/18 06:00 30 07/03/18 05:35 30 Lungs: Auscultation: breath sounds normal, CTA except as noted, no wheezing Cardiovascular: Heart Auscultation: RRR, murmur (holosystolic murmur) Extremities: edema Data Laboratory Results: Last 24 Hours Test 07/03/18 05:57 07/03/18 06:14 07/03/18 06:59 07/03/18 09:58 White Blood Count 1.35 K/uL Red Blood Count 2.83 M/uL Hemoglobin 8.0 g/dL Hematocrit 24.9 % Mean Corpuscular Volume 88.0 fL Mean Corpuscular Hemoglobin 28.3 pg Mean Corpuscular Hemoglobin Concent 32.1 g/dl Platelet Count 170 K/uL Mean Platelet Volume 11.1 fL Neutrophils (%) (Auto) 76.4 % Lymphocytes (%) (Auto) 22.2 % Monocytes (%) (Auto) 0.7 % Eosinophils (%) (Auto) 0.7 % Basophils (%) (Auto) 0.0 % Neutrophils # (Auto) 1.03 K/uL Lymphocytes # (Auto) 0.30 K/uL Monocytes # (Auto) 0.01 K/uL Eosinophils # (Auto) 0.01 K/uL Basophils # (Auto) 0.00 K/uL RDW Standard Deviation 56.0 fL RDW Coefficient of Variation 17.6 % Immature Granulocyte % (Auto) 0.0 % Immature Granulocyte # (Auto) 0.00 K/uL Dohle Bodies 1+ Giant Platelets 2+ Echinocytes 1+ Prothrombin Time 14.3 SECONDS Prothromb Time International Ratio 1.4 Activated Partial Thromboplast Time 72.7 SECONDS 40.8 SECONDS Partial Thromboplastin Ratio 2.8 1.6 Sodium Level 136 mmol/L Potassium Level 3.5 mmol/L Chloride Level 103 mmol/L Carbon Dioxide Level 20 mmol/L Anion Gap 13.0 mmol/L Blood Urea Nitrogen 44 mg/dl Creatinine 1.50 mg/dl Est Creatinine Clear Calc Drug Dose 36.1 ml/min Estimated GFR () 49.2 Estimated GFR (Non- 42.4 BUN/Creatinine Ratio 29.6 Random Glucose 178 mg/dl Lactic Acid Level 3.2 mmol/L Calcium Level 7.1 mg/dl Phosphorus Level 4.8 mg/dl Magnesium Level 1.5 mg/dl Total Bilirubin 1.3 mg/dl Direct Bilirubin 1.0 mg/dl Aspartate Amino Transf (AST/SGOT) 338 U/L Alanine Aminotransferase (ALT/SGPT) 55 U/L Alkaline Phosphatase 96 U/L Total Creatine Kinase 2190 U/L Creatine Kinase MB 297.3 ng/ml Creatine Kinase MB Ratio 13.6 Troponin I 116.000 ng/ml Pro-B-Type Natriuretic Peptide > 30522 pg/ml Total Protein 5.9 gm/dl Albumin 2.2 gm/dl Lipase 32 U/L Procalcitonin 5.10 ng/ml Blood Gas Sample Site L Radial Bedside Blood Gas pH (LAB) 7.40 Bedside Blood Gas pCO2 (LAB) 31 mmHg Bedside Blood Gas pO2 (LAB) 70 mmHg Bedside Blood Gas HCO3 (LAB) 19 meq/L Bedside Blood Gas Total CO2 20 mEq/l Bedside Blood Gas Base Excess (LAB) -6.0 meq/L Bedside Blood Gas O2 Saturation 94.0 % Elia Test Pass Oxygen Delivery Device Ventilator Bedside Oxygen Rate (breaths/min) 12 Blood Gas Minute Ventilation 7.0 Bedside FiO2 30 % Blood Gas Tidal Volume 500 Blood Gas PEEP 5 Random Vancomycin Level 9.7 mcg/ml Test 07/03/18 12:00 07/03/18 12:18 07/03/18 13:28 Urine Color DK YELLOW Urine Appearance CLOUDY Urine pH 5.0 Urine Specific [place] 1.037 Urine Protein 1+ Urine Glucose (UA) NEG Urine Ketones NEG Urine Occult Blood 3+ Urine Nitrite NEG Urine Bilirubin NEG Urine Urobilinogen NEG Urine Leukocyte Esterase NEG Urine WBC (Auto) 5-10 /hpf Urine RBC (Auto) 0-4 /hpf Urine Hyaline Casts (Auto) 1-5 /lpf Urine Epithelial Cells (Auto) 20-30 /lpf Urine Bacteria (Auto) NEG Urine Yeast (Auto) PRESENT Bedside Glucose (other) 142 mg/dl Total Creatine Kinase 2318 U/L Creatine Kinase MB 328.5 ng/ml Creatine Kinase MB Ratio 14.2 Troponin I 168.000 ng/ml Imaging: EKG: Telemetry reviewed: Assessment & Plan 1) NSTEMI -continue trend trops. 116-->162 -will discuss with family to get more background on heart health and potentially pursing cath -serial EKG's 2)PNA/Sepsis -continue vanc/zosyn -repeat CXR -trend LA -ICU monitor 3) Anemia -trend H/H -received 1 unit prbc today Addendum by Cardiology attending: This is family practice resident note. Please see my note under separate cover for cardiology consultation/note. Resident Involvement: Resident Care Provided Care Provided: Adult [facility]
[2018-07-03] MEDS ORDERED: ALBUT/IPRATROP 3MG/0.5MG NEB 3 ML VIAL INH SCH (18:00)
[2018-07-03] MEDS ORDERED: PIPERACILL/TAZOBAC IV 4.5 GM in DEXTROSE 5% 100ML 100 ML IV SCH (19:00)
--- NOTE | 2018-07-03 20:27 | Cardiology Consultation ---
Cardiology Consultation Date of Consultation: Jul 03, 2018. Requesting Physician: Dr. Arriaza Attending Physician: Dr. Leon Reason for Consultation: NSTEMI Pt evaluation today including: conversation w/ patient, conversation w/ family (Florinda (daughter)), physical exam, chart review, lab review, review of studies, conversation w/ forestry consultant (Dr. Arriaza), review of inpatient medication list, conversation w/ attending (Dr. Leon) History of Present Illness Mr. 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 He also has a history of prostate cancer status post XRT. 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 His primary barge master is Dr. Gonsales in [place]. History was obtained via his daughter, Florinda, was contacted via telephone as the patient himself is currently sedated and on mechanical ventilation. He apparently fell in the restroom and denied syncope to his daughter. In route to the hospitalfor evaluation, he complained to his daughter of chest discomfort. He also appeared short of breath. She states he was not confused but his mental status did not appear to be at baseline but she figured it was secondary to the pain. He apparently received fentanyl at [facility] for his discomfort with no significant improvement. She had noticed pre-hospital that his temperature was a 101 F. he was apparently diagnosed with sepsis and receive 6 L of intravenous fluid and 1 unit of packed red blood cells. Underwent a CT scan and due to IV dye allergy was given steroids and Benadryl. Following the CT scan he was able to calm down and fell asleep but had paroxysmal nocturnal dyspnea, awakening with significant shortness of breath and panic. Intubation was offered according to his daughter and he gave permission to intubate despite prior wishes of DNR/DNI, given his difficulty breathing. Florinda states that his troponin was initially 0 at [facility] and then increased to 15 prior to transfer to this facility. While here, he had a central line placed and his CVP was 7 at the time of today's evaluation. He had been placed on low-dose pressor support in the form of Levophed. He also received broad-spectrum antibiotic therapy. In regards to his Siva cell carcinoma, she has the understanding that he is receiving palliative chemotherapy but states that her father believes it is curable and apparently had declined hospice care in the past when offered by his oncologist. She denies any recent bleeding. She states that he had not been complaining of chest pain for several years until recent presentation. Review of systems: As above review of systems otherwise unobtainable due to patient's sedated state. Past Medical/Surgical History 1. CAD status post CABG x3 1985 at [facility] 2. CABG redo 2005 (CABG x1 or 2) 3. Peripheral arterial disease status post aortobifemoral bypass 1993 4. Tachy-bossman syndrome status post pacemaker 02/23/[address] Gonsales 5. Atrial flutter on anticoagulation therapy 6. Carotid artery disease 7. Type 2 diabetes 8. Hypertension 9. Dyslipidemia 10. Mitral/aortic valve disorder 11. Myocardial infarction 1984 but has had reportedly several myocardial infarctions 12. 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 Prostate cancer status post XRT in the past 14. Hip replacement Family History Unobtainable from patient as patient is sedated. Social History Patient unable to provide social history. According to records he is a smoker. His daughter confirms that he lives at home with his who has dementia. His daughter, Florinda, lives next door. There is no family at the bedside at the time of today's visit however Florinda was contacted via telephone later in the day. Allergies Coded Allergies: Dipyridamole (Unverified Allergy, Unknown, unknown, 06/12/18) Erythromycin (Unverified Allergy, Unknown, unknown, 06/12/18) Uncoded Allergies: constrast dye (Allergy, Intermediate, rash, 04/08/16) Medications Current Inpatient Medications Medications (Trade) Dose Ordered Sig/Alen Route Start Time Stop Time Status Last Admin Dose Admin Heparin Sodium (Porcine) (Heparin Sq 5000 Unit/0.5ml) 5,000 unit Q8 SQ 07/03/18 08:00 08/02/18 07:59 07/03/18 16:28 5,000 UNIT Pantoprazole Sodium 40 mg/ Syringe 10 ml @ 5 mls/min DAILY IV 07/03/18 09:00 08/02/18 08:59 07/03/18 07:43 5 MLS/MIN Miscellaneous Information (Icu Protocol For Hyperglycemia) 1 ea PRN PRN N/A 07/03/18 05:45 07/05/18 05:44 Propofol (Diprivan Iv Emulsion 100ml Vial) 1 dose PRN PRN IV 07/03/18 05:59 07/06/18 05:58 07/03/18 19:12 1 DOSE Aspirin (Ecotrin Tab) 81 mg DAILY PO 07/03/18 09:00 08/02/18 08:59 07/03/18 07:28 81 MG Vancomycin HCl (Consult) 1 ea UD PRN N/A 07/03/18 05:45 08/02/18 05:44 Miscellaneous Information (Consult) 1 ea UD PRN N/A 07/03/18 05:45 08/02/18 05:44 Norepinephrine Bitartrate 16 mg/ Dextrose 516 ml @ 0 mls/hr Q0M PRN IV 07/03/18 06:00 08/02/18 05:59 07/03/18 06:00 14.5 MLS/HR Fentanyl Citrate 250 ml @ 15 mls/hr [id number] IV 07/03/18 09:15 07/17/18 09:14 07/03/18 09:48 15 MLS/HR Miscellaneous Information (Consult Glycemic Management Pharmacy) 1 ea UD PRN N/A 07/03/18 09:15 08/02/18 09:14 Glucose (Glucose 40% Gel) 15-30 GRAMS 15 GRAMS... UD PRN PO 07/03/18 09:15 08/02/18 09:14 Glucose (Glucose Chew Tab) 4-8 Tablets 4 Tabl... UD PRN PO 07/03/18 09:15 08/02/18 09:14 Dextrose (Dextrose 50% 50ML Syringe) 25-50ML 25ML FOR ... UD PRN IV 07/03/18 09:15 08/02/18 09:14 Glucagon (Glucagon Inj) 1 mg UD PRN IM 07/03/18 09:15 08/02/18 09:14 Carbohydrates (Carbohydrates For Hypoglycemia) 15-30 GRAMS 15 grams if BSG 54-69... UD PRN PO 07/03/18 09:15 08/02/18 09:14 Piperacillin Sod/ Tazobactam Sod 4.5 gm/Dextrose 120 ml @ 30 mls/hr Q8H IV 07/03/18 16:00 07/10/18 15:59 07/03/18 16:48 30 MLS/HR Insulin Aspart (novoLOG ASPART) SLIDING SCALE Q6 SC 07/03/18 12:00 08/02/18 11:59 Chlorhexidine Gluconate (Peridex Oral Soln) 15 ml DAILY MT 07/04/18 09:00 08/03/18 08:59 Artificial Tears (Artificial Tears) 2 drops DAILY OP 07/04/18 09:00 08/03/18 08:59 Albuterol/ Ipratropium (Duoneb) 3 ml Q6R INH 07/03/18 15:00 08/02/18 14:59 07/03/18 18:53 3 ML Sodium Chloride 1,000 ml @ 100 mls/hr Q10H IV 07/03/18 17:00 08/02/18 16:59 07/03/18 17:00 100 MLS/HR Physical Exam Vital Signs Past 12 Hours Date Time Temp Pulse Resp B/P (MAP) Pulse Ox O2 Delivery O2 Flow Rate FiO2 07/03/18 18:50 30 07/03/18 18:00 36.4 60 12 101/61 (74) 98 Mechanical Ventilator 30 07/03/18 17:17 30 07/03/18 17:00 36.4 69 25 115/72 (86) 98 Mechanical Ventilator 30 07/03/18 16:00 36.4 100 13 103/74 (84) 94 Mechanical Ventilator 30 07/03/18 15:00 36.4 67 25 104/62 (76) 98 Mechanical Ventilator 30 07/03/18 14:26 30 07/03/18 14:00 36.4 67 23 98/64 (75) Mechanical Ventilator 30 07/03/18 13:00 36.4 64 23 85/57 (66) Mechanical Ventilator 30 07/03/18 12:00 36.5 66 23 81/53 (62) 98 Mechanical Ventilator 30 07/03/18 12:00 30 07/03/18 11:09 30 07/03/18 11:00 36.5 72 24 92/59 (70) 99 Mechanical Ventilator 30 07/03/18 10:00 36.5 74 24 92/59 (70) 99 Mechanical Ventilator 30 07/03/18 09:00 36.5 79 12 104/65 (78) 98 Mechanical Ventilator 30 07/03/18 08:00 Mechanical Ventilator 30 07/03/18 08:00 98 Mechanical Ventilator 30 07/03/18 08:00 30 07/03/18 08:00 36.5 80 12 113/72 (86) 98 Mechanical Ventilator 30 Gen.: No acute distress. Sedated on mechanical ventilation. HEENT: Anicteric sclera. Pupils were constricted. Neck: No appreciable JVD. No bruits. Normal carotid upstrokes bilaterally. Central venous catheter noted right neck. Cardiac: PMI was nonpalpable. No ventricular heave. Regular. Normal S1-S2. 2/6 holosystolic murmur best heard at the apex. No rubs, or gallops. Pulmonary: Clear to auscultation bilaterally without wheezes, rales, or rhonchi. Abdomen: Soft, nontender, nondistended, with hypoactive bowel sounds. No bruits noted. Extremities: 2+ radial pulses bilaterally. 1+ posterior tibialis pulses bilaterally. Trace to 1+ bilateral lower extremity edema. No cyanosis. Data Laboratory Results: Last 24 Hours Test 07/03/18 05:57 07/03/18 06:14 07/03/18 06:59 07/03/18 09:58 White Blood Count 1.35 K/uL Red Blood Count 2.83 M/uL Hemoglobin 8.0 g/dL Hematocrit 24.9 % Mean Corpuscular Volume 88.0 fL Mean Corpuscular Hemoglobin 28.3 pg Mean Corpuscular Hemoglobin Concent 32.1 g/dl Platelet Count 170 K/uL Mean Platelet Volume 11.1 fL Neutrophils (%) (Auto) 76.4 % Lymphocytes (%) (Auto) 22.2 % Monocytes (%) (Auto) 0.7 % Eosinophils (%) (Auto) 0.7 % Basophils (%) (Auto) 0.0 % Neutrophils # (Auto) 1.03 K/uL Lymphocytes # (Auto) 0.30 K/uL Monocytes # (Auto) 0.01 K/uL Eosinophils # (Auto) 0.01 K/uL Basophils # (Auto) 0.00 K/uL RDW Standard Deviation 56.0 fL RDW Coefficient of Variation 17.6 % Immature Granulocyte % (Auto) 0.0 % Immature Granulocyte # (Auto) 0.00 K/uL Dohle Bodies 1+ Giant Platelets 2+ Echinocytes 1+ Prothrombin Time 14.3 SECONDS Prothromb Time International Ratio 1.4 Activated Partial Thromboplast Time 72.7 SECONDS 40.8 SECONDS Partial Thromboplastin Ratio 2.8 1.6 Sodium Level 136 mmol/L Potassium Level 3.5 mmol/L Chloride Level 103 mmol/L Carbon Dioxide Level 20 mmol/L Anion Gap 13.0 mmol/L Blood Urea Nitrogen 44 mg/dl Creatinine 1.50 mg/dl Est Creatinine Clear Calc Drug Dose 36.1 ml/min Estimated GFR () 49.2 Estimated GFR (Non- 42.4 BUN/Creatinine Ratio 29.6 Random Glucose 178 mg/dl Lactic Acid Level 3.2 mmol/L Calcium Level 7.1 mg/dl Phosphorus Level 4.8 mg/dl Magnesium Level 1.5 mg/dl Total Bilirubin 1.3 mg/dl Direct Bilirubin 1.0 mg/dl Aspartate Amino Transf (AST/SGOT) 338 U/L Alanine Aminotransferase (ALT/SGPT) 55 U/L Alkaline Phosphatase 96 U/L Total Creatine Kinase 2190 U/L Creatine Kinase MB 297.3 ng/ml Creatine Kinase MB Ratio 13.6 Troponin I 116.000 ng/ml Pro-B-Type Natriuretic Peptide > 50171 pg/ml Total Protein 5.9 gm/dl Albumin 2.2 gm/dl Lipase 32 U/L Procalcitonin 5.10 ng/ml Blood Gas Sample Site L Radial Bedside Blood Gas pH (LAB) 7.40 Bedside Blood Gas pCO2 (LAB) 31 mmHg Bedside Blood Gas pO2 (LAB) 70 mmHg Bedside Blood Gas HCO3 (LAB) 19 meq/L Bedside Blood Gas Total CO2 20 mEq/l Bedside Blood Gas Base Excess (LAB) -6.0 meq/L Bedside Blood Gas O2 Saturation 94.0 % Elia Test Pass Oxygen Delivery Device Ventilator Bedside Oxygen Rate (breaths/min) 12 Blood Gas Minute Ventilation 7.0 Bedside FiO2 30 % Blood Gas Tidal Volume 500 Blood Gas PEEP 5 Random Vancomycin Level 9.7 mcg/ml Test 07/03/18 12:00 07/03/18 12:18 07/03/18 13:28 07/03/18 18:17 Urine Color DK YELLOW Urine Appearance CLOUDY Urine pH 5.0 Urine Specific [place] 1.037 Urine Protein 1+ Urine Glucose (UA) NEG Urine Ketones NEG Urine Occult Blood 3+ Urine Nitrite NEG Urine Bilirubin NEG Urine Urobilinogen NEG Urine Leukocyte Esterase NEG Urine WBC (Auto) 5-10 /hpf Urine RBC (Auto) 0-4 /hpf Urine Hyaline Casts (Auto) 1-5 /lpf Urine Epithelial Cells (Auto) 20-30 /lpf Urine Bacteria (Auto) NEG Urine Yeast (Auto) PRESENT Bedside Glucose (other) 142 mg/dl 126 mg/dl Total Creatine Kinase 2318 U/L Creatine Kinase MB 328.5 ng/ml Creatine Kinase MB Ratio 14.2 Troponin I 168.000 ng/ml Telemetry personally reviewed: No arrhythmia. Echo 07/03/2018: Normal LV size. Moderately to severely reduced systolic function. EF 30-35%. Akinesis involving the basal anteroseptum, inferolateral , mid anterolateral, and mid to distal anterior wall segments. Otherwise, global hypokinesis. No LVH. Moderate left atrial dilation. Moderate to severe MR. Mild to moderate TR. RVSP 59. ECG 07/03/2018 9:16 a.m.: Sinus rhythm with PVCs 84 bpm. Prolonged QT. Chest x-ray personally reviewed Assessment & Plan ASSESSMENT/PLAN: 1. NSTEMI: Currently sedated but did complain of chest discomfort pre-hospital , which may have represented angina. Given his other significant comorbidities and no ST elevation on ECG, urgent cardiac catheterization was not rectum. Recommend supportive care at this time. His daughter, Florinda, is in agreement with this decision at this time. If he recovers from current acute issues, we could have a discussion with him if he is having ongoing symptoms to consider coronary angiography at that time, however at this point it appears as though he had a myocardial infarction yesterday. Continue aspirin 81 mg daily. Dual anti-platelet therapy was not initiated as he is also on long-term anticoagulation therapy. Consider high-intensity statin therapy. 2. Ischemic cardiomyopathy: Echo results discussed with daughter. Currently on pressor support in the form of Levophed. When safe, would recommend initiation of beta-kaiden therapy in the form of carvedilol or metoprolol succinate as well as Jeffrey inhibitor. If LV systolic function does not improve over time, could consider ICD if appropriate given his metastatic carcinoma. 3. CAD status post CABG and redo CABG: Supportive care as above. Continue aspirin 81 mg daily. Consider restarting high-intensity statin therapy. Plan as above. 4. Respiratory failure: There was concern for heart failure however CVP is not elevated and he continues to receive IV fluids as per critical care team. Diuresis is not recommended at this time. He does have lower extremity edema but also has hypoalbuminemia with an albumin of 2.2. 5. Mitral regurgitation: He appears to have significant mitral regurgitation. It is not clear if this is acute or chronic. We discussed that if he has acute mitral regurgitation, he is not a good candidate for surgical correction. Transesophageal echo is not recommended at this time as it would not likely change management analyst. Continue to follow over time. Patient's daughter, Florinda , is comfortable with this decision. 6. Pulmonary hypertension: Etiology uncertain. He does have reported metastatic Cary cell carcinoma to the lungs. Mitral regurgitation could also increase pulmonary pressures. This can be re-evaluated in the future if appropriate. 7. Peripheral arterial disease status post aortobifemoral bypass: Can be followed as outpatient. 8. Sepsis: As per primary and critical care service. 9. Atrial flutter: Has a history of atrial flutter but appears to be in sinus currently. On long-term anticoagulation therapy as per his primary barge master. 10. Tachy-bossman syndrome: Pacemaker in place. 11. Disposition: Cardiology will continue to follow. Poor prognosis. Highly complex medical issues. Palliative care is also following along. Patient care has been discussed with Dr. Arriaza and Dr. Leon. 90 minutes critical care time spent, including reviewing chart, studies, coordinating care, discussing with other attending physicians, and also discussing with patient's daughter, Florinda, via telephone. Thank you for allowing me to participate in the care of your patient. Please call for any other questions or concerns. Sincerely, Waqar Steele M.D.
[2018-07-03 22:14] LABS: CKMB 246.1 ng/ml (0.5-3.6)
[2018-07-04] VITALS (48 sets, daily range): BP systolic 81–152; BP diastolic 48–96; PULSE 60–132; TEMP 35–36.4; O2SAT 20–100
[2018-07-04] MEDS ORDERED: NURSING VERBAL MED ORDER ONE ×3 (01:00→14:30)
[2018-07-04] MEDS: ALBUT/IPRATROP 3MG/0.5MG NEB 3 ML VIAL INH SCH ×3 (01:28→14:34)
[2018-07-04] MEDS: SODIUM CHLORIDE 0.9% 1000ML 1,000 ML IV SCH (02:26)
[2018-07-04] MEDS ORDERED: NURSING VERBAL MED ORDER STA (03:31)
[2018-07-04] MEDS: PROPOFOL IV EMULSION 10 MG/ML 100 ML VIAL IV PRN (03:39)
[2018-07-04] MEDS ORDERED: SODIUM CHLORIDE 0.9% 500ML 500 ML IV STA (03:41)
[2018-07-04 05:11] LABS: CALCIUM 7.1 mg/dl (8.5-10.1); CREATININE 1.51 mg/dl (0.60-1.40); PHOSPHORUS 5.2 mg/dl (2.5-4.9); POTASSIUM 3.7 mmol/L (3.5-5.1)
[2018-07-04 05:19] LABS: HEMATOCRIT 21.4 % (42-52); MEAN CELL VOLUME 86.3 fL (80-100); MEAN CORPUSCULAR HEMOGLOBIN 28.2 pg (25-34); MEAN CORPUSCULAR HGB CONC 32.7 g/dl (32-36); RED CELL DISTRIBUTION WIDTH CV 17.9 % (11.5-14.5); RED CELL DISTRIBUTION WIDTH SD 56.2 fL (36.4-46.3); WHITE BLOOD COUNT 0.58 K/uL (4.8-10.8)
[2018-07-04] MEDS: HEPARIN SOD 5000 UNIT/0.5 ML CARP SQ SCH ×3 (05:41→22:16)
[2018-07-04] MEDS: INSULIN ASPART 100 UNITS/ML 3 ML PEN SC SCH ×3 (05:43→18:00)
[2018-07-04 05:54] LABS: MEAN PLATELET VOLUME 10.9 fL (7.4-10.4); PLATELET COUNT 96 K/uL (130-400)
[2018-07-04 05:55] LABS: IG# 0.04 K/uL (0.00-0.02); LYMPH % 25.9 %; LYMPH ABS # 0.15 K/uL (1.2-3.4); MONO % 5.2 %; MONO ABS # 0.03 K/uL (0.11-0.59); NEUT ABS # 0.36 K/uL (1.4-6.5)
--- NOTE | 2018-07-04 07:12 | History and Physical ---
History & Physical Date & Time of Service: Jul 04, 2018 at 06:57 Chief Complaint: Acute Resp Failure W/ Hypoxia & Hypercapnia Primary Care Physician: Inderjit Hummel M.D. History of Present Illness Source: patient, hospital records The patient is an 81-year-old male transferred from [facility], after presenting there following a fall where he was found by his family on the bathroom floor. In the ED there, he was treated with multiple doses of fentanyl and Dilaudid for extreme pain, and also aggressively hydrated with IV fluids due to tachycardia, hypotension, right middle lobe pneumonia and significantly elevated lactic acid of 6.1. The patient did develop significant shortness of breath, decreased oxygen saturation, and required placement of endotracheal tube for airway management. The patient had been DNR/DNI, however, the patient' s family did reverse this decision and asked that the patient be intubated. He did receive IV vancomycin and IV Zosyn. CT of the chest was negative for PE, but did confirm infiltrative change versus metastatic process associated presumptively with Siva cell carcinoma, which had already been known to have spread to his lungs and abdomen. The patient had been accepted for transfer [facility] with plans for telemetry admission, however, once intubated, he was then transferred to ICU status. 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) (4) Siva cell carcinoma of lip Family History Noncontributory Social History Smokeless Tobacco Use: No Alcohol Use: none Drug Use: none Marital Status: other Occupational Status: retired Immunizations History of Influenza Vaccine: Unknown (She was just here on ) History of Tetanus Vaccine?: Unknown History of Pneumococcal: Unknown History of Hepatitis B Vaccine: Unknown Allergies Coded Allergies: Dipyridamole (Unverified Allergy, Unknown, unknown, 06/12/18) Erythromycin (Unverified Allergy, Unknown, unknown, 06/12/18) Uncoded Allergies: constrast dye (Allergy, Intermediate, rash, 04/08/16) Home Medications Scheduled Aspirin (Aspirin Ec), 81 MG PO DAILY Atorvastatin (Lipitor), 1 TAB PO DAILY Bicalutamide (Casodex), 1 TAB PO DAILY Calcium Carbonate-Cholecalcife (Caltrate 600+D), DAILY Cholecalciferol (Vitamin D), DAILY Fentanyl (Fentanyl), 75 MCG TOP Q72H Isosorbide Mononitrate (Isosorbide Mononitrate), 40 MG AM Isosorbide Mononitrate (Isosorbide Mononitrate), PM Leuprolide Acetate (Lupron Depot), IM [id number] Losartan Potassium (Cozaar), 1 TAB PO DAILY Metoprolol Tartrate (Lopressor) (Lopressor), 1 TAB PO BID Multivitamin (Multivitamin), 1 TAB PO DAILY Pioglitazone (Actos), 15 MG PO DAILY Rivaroxaban (Xarelto), 1 TAB PO DAILY Scheduled PRN Oxycodone Hcl (Oxycontin), 20 MG PO Q8 PRN for Pain Review of Systems Patient unable to contribute to review of systems due to intubated state. Physical Exam Vital Signs Date Time Temp Pulse Resp B/P (MAP) Pulse Ox O2 Delivery O2 Flow Rate FiO2 07/04/18 06:30 62 12 105/61 (78) 99 07/04/18 06:00 60 12 102/59 (68) 99 07/04/18 05:31 60 12 94/57 (69) 97 07/04/18 05:19 30 07/04/18 05:00 63 12 106/63 (79) 100 07/04/18 04:30 61 12 106/59 (71) 100 07/04/18 04:00 100 Mechanical Ventilator 30 07/04/18 04:00 30 07/04/18 04:00 36.4 07/04/18 04:00 63 12 105/60 (77) 98 07/04/18 03:30 63 12 105/60 (76) 100 07/04/18 03:00 64 12 104/60 (70) 99 07/04/18 02:30 64 12 114/61 (78) 100 07/04/18 02:01 69 12 114/63 (81) 100 07/04/18 01:30 62 14 110/62 (73) 97 07/04/18 01:26 30 07/04/18 01:00 61 12 108/60 (77) 96 07/04/18 00:30 62 12 108/61 (76) 95 07/04/18 00:01 36.4 07/04/18 00:00 62 12 106/59 (74) 97 818 23:59 98 Mechanical Ventilator 30 07/03/18 23:59 30 8 23:30 60 12 101/58 (68) 96 8 23:01 68 12 118/70 (83) 100 8 22:30 64 12 107/58 (69) 99 07/03/18 22:00 61 13 105/60 (77) 98 07/03/18 21:52 30 07/03/18 21:30 60 12 94/57 (67) 98 07/03/18 21:00 62 12 103/63 (78) 98 07/03/18 20:30 62 12 106/62 (74) 98 07/03/18 20:13 61 12 110/64 (74) 97 07/03/18 20:00 30 07/03/18 20:00 98 Mechanical Ventilator 30 07/03/18 20:00 69 12 113/66 (77) 98 07/03/18 20:00 36.4 07/03/18 19:00 62 12 105/64 (75) 97 07/03/18 18:50 30 07/03/18 18:00 36.4 60 12 101/61 (74) 98 Mechanical Ventilator 30 07/03/18 17:17 30 07/03/18 17:00 36.4 69 25 115/72 (86) 98 Mechanical Ventilator 30 07/03/18 16:00 36.4 100 13 103/74 (84) 94 Mechanical Ventilator 30 07/03/18 15:00 36.4 67 25 104/62 (76) 98 Mechanical Ventilator 30 07/03/18 14:26 30 07/03/18 14:00 36.4 67 23 98/64 (75) Mechanical Ventilator 30 07/03/18 13:00 36.4 64 23 85/57 (66) Mechanical Ventilator 30 07/03/18 12:00 36.5 66 23 81/53 (62) 98 Mechanical Ventilator 30 07/03/18 12:00 30 8 11:09 30 07/03/18 11:00 36.5 72 24 92/59 (70) 99 Mechanical Ventilator 30 07/03/18 10:00 36.5 74 24 92/59 (70) 99 Mechanical Ventilator 30 07/03/18 09:00 36.5 79 12 104/65 (78) 98 Mechanical Ventilator 30 07/03/18 08:00 Mechanical Ventilator 30 07/03/18 08:00 98 Mechanical Ventilator 30 07/03/18 08:00 30 07/03/18 08:00 36.5 80 12 113/72 (86) 98 Mechanical Ventilator 30 07/03/18 07:28 30 The patient is intubated, sedated, unresponsive, normocephalic and atraumatic, lying in bed. HEENT--PERRL, EOMI, mucous membranes and oropharynx dry. Neck--supple. No JVD. No bruits. Thyroid normal, trachea midline, no adenopathy. Heart--normal S1 and S2. No murmurs, rubs or gallops. Lungs--coarse breath sounds bilaterally. Accessory muscle use. Abdomen--normal bowel sounds and soft. Nontender. Mildly distended. Mildly tympanitic. Extremities--there is bilateral pretibial 2+ pitting edema. There are good distal pulses b/l. Dermatologic--normal skin turgor, normal color, no abnormal lymph nodes, no rash. Neurologic--deferred Rheumatologic--deferred Psychiatric--deferred Diagnostics Laboratory Results Results Past 24 Hours Test 07/03/18 06:59 07/03/18 09:58 07/03/18 12:00 07/03/18 12:18 Range/Units Random Vancomycin Level 9.7 mcg/ml Activated Partial Thromboplast Time 40.8 21.0-31.0 SECONDS Partial Thromboplastin Ratio 1.6 Urine Color DK YELLOW Urine Appearance CLOUDY CLEAR Urine pH 5.0 4.5-7.5 Urine Specific [place] 1.037 1.000-1.030 Urine Protein 1+ NEG Urine Glucose (UA) NEG NEG Urine Ketones NEG NEG Urine Occult Blood 3+ NEG Urine Nitrite NEG NEG Urine Bilirubin NEG NEG Urine Urobilinogen NEG NEG Urine Leukocyte Esterase NEG NEG Urine WBC (Auto) 5-10 0-5 /hpf Urine RBC (Auto) 0-4 0-4 /hpf Urine Hyaline Casts (Auto) 1-5 0-5 /lpf Urine Epithelial Cells (Auto) 20-30 0-5 /lpf Urine Bacteria (Auto) NEG NEG Urine Yeast (Auto) PRESENT NONE PRSENT Bedside Glucose (other) 142 70-99 mg/dl Test 07/03/18 13:28 07/03/18 18:17 07/03/18 21:29 07/03/18 23:39 Range/Units Total Creatine Kinase 2318 1784 39-308 U/L Creatine Kinase MB 328.5 246.1 0.5-3.6 ng/ml Creatine Kinase MB Ratio 14.2 13.8 0-3.0 Troponin I 168.000 125.000 0-0.045 ng/ml Bedside Glucose (other) 126 116 70-99 mg/dl Test 07/04/18 04:19 07/04/18 05:43 Range/Units White Blood Count 0.58 4.8-10.8 K/uL Red Blood Count 2.48 4.7-6.1 M/uL Hemoglobin 7.0 14.0-18.0 g/dL Hematocrit 21.4 42-52 % Mean Corpuscular Volume 86.3 80-100 fL Mean Corpuscular Hemoglobin 28.2 25-34 pg Mean Corpuscular Hemoglobin Concent 32.7 32-36 g/dl Platelet Count 96 130-400 K/uL Mean Platelet Volume 10.9 7.4-10.4 fL Neutrophils (%) (Auto) 62.0 % Lymphocytes (%) (Auto) 25.9 % Monocytes (%) (Auto) 5.2 % Eosinophils (%) (Auto) 0.0 % Basophils (%) (Auto) 0.0 % Neutrophils # (Auto) 0.36 1.4-6.5 K/uL Lymphocytes # (Auto) 0.15 1.2-3.4 K/uL Monocytes # (Auto) 0.03 0.11-0.59 K/uL Eosinophils # (Auto) 0.00 0-0.5 K/uL Basophils # (Auto) 0.00 0-0.2 K/uL RDW Standard Deviation 56.2 36.4-46.3 fL RDW Coefficient of Variation 17.9 11.5-14.5 % Immature Granulocyte % (Auto) 6.9 % Immature Granulocyte # (Auto) 0.04 0.00-0.02 K/uL Toxic Granulation 1+ Platelet Estimate DECREASED Large Platelets 1+ Echinocytes 1+ Sodium Level 136 136-145 mmol/L Potassium Level 3.7 3.5-5.1 mmol/L Chloride Level 107 98-107 mmol/L Carbon Dioxide Level 18 21-32 mmol/L Anion Gap 11.0 3-11 mmol/L Blood Urea Nitrogen 49 7-18 mg/dl Creatinine 1.51 0.60-1.40 mg/dl Est Creatinine Clear Calc Drug Dose 35.9 ml/min Estimated GFR () 48.8 Estimated GFR (Non- 42.1 BUN/Creatinine Ratio 32.4 10-20 Random Glucose 115 70-99 mg/dl Calcium Level 7.1 8.5-10.1 mg/dl Phosphorus Level 5.2 2.5-4.9 mg/dl Magnesium Level 1.8 1.8-2.4 mg/dl Random Vancomycin Level 14.5 mcg/ml Bedside Glucose (other) 111 70-99 mg/dl Microbiology Results 07/03/18 MRSA DNA Surveillance Screen - Final, Complete Specimen Negative for MRSA by DNA Probe Impression Assessment and Plan Acute respiratory failure with hypoxia and hypercapnia-- Admit intubated to the ICU- Further care at their direction. GT Chin aware. Delmar Arriaza as gluing machine operator automatic consult. Advanced Directives Existing Living Will: Yes Resuscitation Status VTE Prophylaxis Will order VTE Prophylaxis: Yes
--- NOTE | 2018-07-04 07:14 | DIAGNOSTIC IMAGING REPORT ---
SINGLE VIEW CHEST CLINICAL HISTORY: Respiratory failure. FINDINGS: An AP, portable, upright chest radiograph is compared to study dated 07/03/2018 and correlated with chest CT dated 05/09/2019. The examination is degraded by portable technique and patient rotation. A 2-lead cardiac pacemaker is unchanged in position and partially obscures the left upper chest. Endotracheal and enteric tubes as well as a right internal jugular central venous catheter are also unchanged. The patient is status post midline sternotomy. The heart is enlarged and there is atherosclerotic calcification of the thoracic aorta. There is pulmonary basilar congestion and interstitial edema. There is asymmetric consolidation at the left lung base and small pleural effusions. No pneumothorax is seen. The skeletal structures are osteopenic. The bony thorax is grossly intact. IMPRESSION: 1. Stable lines and tubes. 2. Cardiomegaly and cardiac pacemaker with evidence of congestive failure. 3. There is asymmetric consolidation at the left lung base. This could represent atelectasis, asymmetric pulmonary edema, and/or pneumonia. 4. Small pleural effusions Electronically signed by: Harlan Arciniega M.D. 07/04/2018 7:12 AM Dictated Date/Time: 07/04/2018 7:10 AM
[2018-07-04] MEDS ORDERED: VANCOMYCIN IV 1,250 MG in SODIUM CHLORIDE 0.9% 250ML 250 ML IV SCH (07:15)
[2018-07-04] MEDS: ASPIRIN 81 MG ECTAB PO SCH (08:11)
[2018-07-04] MEDS: PIPERACILL/TAZOBAC IV 4.5 GM in DEXTROSE 5% 100ML 100 ML IV SCH ×3 (08:13→23:46)
[2018-07-04] MEDS: PANTOprazole INJ 40 MG in SYRINGE 0 ML IV SCH (08:14)
[2018-07-04] MEDS: ARTIFICIAL TEARS OP SOLN OP SCH (08:15)
[2018-07-04] MEDS ORDERED: CHLORHEXIDINE GLUCONATE 0.12% 480 ML MT SCH (09:00)
[2018-07-04] MEDS ORDERED: FILGRASTIM 480 MCG/1.6 ML VIAL SC ONE (09:15)
[2018-07-04] MEDS: ASPIRIN 81 MG CHEW NG SCH (10:07)
--- NOTE | 2018-07-04 11:01 | Pharmacy Progress Note ---
Pharmacy Abx Dose Short Note Date of Service Jul 04, 2018. Assessment & Plan Assessment * 82 year old male transferred from [facility] for acute hypoxemic hypercapnic respiratory failure and hypotension, concern for septic shock and/ or cardiogenic shock. Source of sepsis may be pneumonia. * Pt remains intubated, sedated, and receiving IV pressors (norepi) * BLCX's ordered and results pending, nasal swab negative for MRSA lessening the possibility of MRSA pneumonia * CXR suggestive of pulm edema with scattered b/l airspace opacities that could represent pulm edema vs superimposed pna * Procal 5.1 * Trop 116, proBNP >35,000 * Renal fxn stable, SCr not climbing, U.O. better overnight Plan Vancomycin * Random level on arrival from [facility] yesterday was 9.7mcg/mL * Vancomycin 1250mg (16.8mg/kg) IV x 1 given yesterday AM * Random level 14.5 mcg/mL this AM is near therapeutic for septic shock * Plan is to repeat the 1250mg IV dose x 1 this AM and recheck a random level w / AM labs tomorrow as I do anticipate his elimination rate to be slow enough to allow for once daily dosing. * Goal trough: 15-20mcg/mL Zosyn * Continue 4.5gm ext-infusion IV Q 8 hrs for eCrCl > 20 Pharmacy will continue to follow and will adjust dose/frequency as necessary. Thank you.
[2018-07-04] MEDS ORDERED: MoRPHine SULFATE 2 MG/ML CARP ONE (11:36)
[2018-07-04] MEDS ORDERED: FUROSEMIDE 40 MG/4 ML VIAL ONE (11:37)
[2018-07-04] MEDS ORDERED: MIDAZOLAM HCL 1 MG/ML 2ML VIAL ONE (11:40)
[2018-07-04] MEDS ORDERED: FENTANYL CITRATE INJ 50 MCG/1 ML 2 ML VIAL ONE (11:41)
[2018-07-04] MEDS ORDERED: MoRPHine SULFATE 2 MG/ML CARP IV PRN (11:45)
[2018-07-04] MEDS ORDERED: FUROSEMIDE INJ 40 MG in SYRINGE 0 ML IV ONE (11:45)
--- NOTE | 2018-07-04 12:00 | DIAGNOSTIC IMAGING REPORT ---
CHEST ONE VIEW PORTABLE CLINICAL HISTORY: 82 years-old Male presenting with post extubation . TECHNIQUE: Portable upright AP view of the chest was obtained. COMPARISON: 07/04/2018. FINDINGS: The endotracheal tube has been removed. Nasogastric tube also removed. Numerous external leads overlie the thorax degrading evaluation. Right internal jugular central venous catheter remains in place terminating at the superior cavoatrial junction. Left subclavian pacer with leads to the right atrium and right ventricular apex. Median sternotomy wires and mediastinal surgical clips unchanged. Atherosclerosis of aortic arch with ectasia of the descending thoracic aorta. Cardiac silhouette mildly enlarged. Pulmonary vascular prominence as on prior exam. Bronchial wall thickening and vague perihilar and bibasilar density as on prior exam. Small bilateral pleural effusions suspected. No pneumothorax. Gaseous distention of bowel in the left upper quadrant. IMPRESSION: 1. Status post extubation and removal of the nasogastric tube. 2. Cardiomegaly with volume overload/congestive change and mild pulmonary edema similar to prior exam. 3. Small bilateral pleural effusions. Electronically signed by: Ralph Rae M.D. 07/04/2018 11:59 AM Dictated Date/Time: 07/04/2018 11:57 AM
[2018-07-04] MEDS ORDERED: RAPID SEQUENCE INDUCTION BAG ONE (12:06)
[2018-07-04] MEDS ORDERED: MIDAZOLAM 125MG/250ML D5W ONE (12:07)
[2018-07-04] MEDS ORDERED: MIDAZOLAM 125MG/250ML D5W 250 ML IV PRN (12:29)
--- NOTE | 2018-07-04 14:25 | Cardiology Follow-Up ---
Subjective Date of Service: Jul 04, 2018. History of Present Illness Mr. 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 He also has a history of prostate cancer status post XRT. 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 His primary ribbon inker is Dr. Gonsales in [place]. He remains on mechanical ventilator. He was seen earlier this morning. Sedation had been shut off. He was arousable but the did not communicate consistently. He was able to shake his head yes or no but once again was not consistent. Additionally he indicated that he had no pain. He then indicated that he had chest pain. When asked once more, he had no response. Review of systems otherwise unobtainable. He was being tried on a CPAP trial. Medications Current Inpatient Medications Medications (Trade) Dose Ordered Sig/Alen Route Start Time Stop Time Status Last Admin Dose Admin Heparin Sodium (Porcine) (Heparin Sq 5000 Unit/0.5ml) 5,000 unit Q8 SQ 07/03/18 08:00 08/02/18 07:59 07/04/18 05:41 5,000 UNIT Pantoprazole Sodium 40 mg/ Syringe 10 ml @ 5 mls/min DAILY IV 07/03/18 09:00 08/02/18 08:59 07/04/18 08:14 5 MLS/MIN Miscellaneous Information (Icu Protocol For Hyperglycemia) 1 ea PRN PRN N/A 07/03/18 05:45 07/05/18 05:44 Propofol (Diprivan Iv Emulsion 100ml Vial) 1 dose PRN PRN IV 07/03/18 05:59 07/06/18 05:58 07/04/18 03:39 1 DOSE Vancomycin HCl (Consult) 1 ea UD PRN N/A 07/03/18 05:45 08/02/18 05:44 Miscellaneous Information (Consult) 1 ea UD PRN N/A 07/03/18 05:45 08/02/18 05:44 Norepinephrine Bitartrate 16 mg/ Dextrose 516 ml @ 0 mls/hr Q0M PRN IV 07/03/18 06:00 08/02/18 05:59 07/03/18 06:00 14.5 MLS/HR Fentanyl Citrate 250 ml @ 15 mls/hr [id number] IV 07/03/18 09:15 07/17/18 09:14 07/03/18 21:33 15 MLS/HR Miscellaneous Information (Consult Glycemic Management Pharmacy) 1 ea UD PRN N/A 07/03/18 09:15 08/02/18 09:14 Glucose (Glucose 40% Gel) 15-30 GRAMS 15 GRAMS... UD PRN PO 07/03/18 09:15 08/02/18 09:14 Glucose (Glucose Chew Tab) 4-8 Tablets 4 Tabl... UD PRN PO 07/03/18 09:15 08/02/18 09:14 Dextrose (Dextrose 50% 50ML Syringe) 25-50ML 25ML FOR ... UD PRN IV 07/03/18 09:15 08/02/18 09:14 Glucagon (Glucagon Inj) 1 mg UD PRN IM 07/03/18 09:15 08/02/18 09:14 Carbohydrates (Carbohydrates For Hypoglycemia) 15-30 GRAMS 15 grams if BSG 54-69... UD PRN PO 07/03/18 09:15 08/02/18 09:14 Piperacillin Sod/ Tazobactam Sod 4.5 gm/Dextrose 120 ml @ 30 mls/hr Q8H IV 07/03/18 16:00 07/10/18 15:59 07/04/18 08:13 30 MLS/HR Insulin Aspart (novoLOG ASPART) SLIDING SCALE Q6 SC 07/03/18 12:00 08/02/18 11:59 Chlorhexidine Gluconate (Peridex Oral Soln) 15 ml DAILY MT 07/04/18 09:00 08/03/18 08:59 07/04/18 08:14 15 ML Artificial Tears (Artificial Tears) 2 drops DAILY OP 07/04/18 09:00 08/03/18 08:59 07/04/18 08:15 2 DROPS Albuterol/ Ipratropium (Duoneb) 3 ml Q6R INH 07/03/18 15:00 08/02/18 14:59 07/04/18 07:48 3 ML Sodium Chloride 1,000 ml @ 100 mls/hr Q10H IV 07/03/18 17:00 08/02/18 16:59 07/04/18 02:26 100 MLS/HR Aspirin (Aspirin Chew) 81 mg DAILY NG 07/04/18 09:45 08/03/18 09:44 07/04/18 10:07 81 MG Morphine Sulfate (MoRPHine SULFATE INJ) 2 mg Q2HWA PRN IV 07/04/18 11:45 07/18/18 11:44 Midazolam HCl 250 ml @ 0 mls/hr Q0M PRN IV 07/04/18 12:29 08/03/18 12:28 Objective Vital Signs Past 12 Hours Date Time Temp Pulse Resp B/P (MAP) Pulse Ox O2 Delivery O2 Flow Rate FiO2 07/04/18 12:25 100 07/04/18 12:14 121 141/83 22 07/04/18 12:12 122 145/84 20 07/04/18 12:10 128 143/89 37 07/04/18 12:10 36.3 113 12 119/91 31 Mechanical Ventilator 07/04/18 12:08 127 150/91 07/04/18 12:06 124 152/93 07/04/18 12:05 100 07/04/18 12:04 125 151/92 07/04/18 12:03 123 145/91 07/04/18 12:01 106 134/78 07/04/18 11:59 109 126/85 07/04/18 11:57 110 122/79 07/04/18 11:55 112 142/75 07/04/18 11:52 113 140/79 07/04/18 11:50 116 134/87 49 07/04/18 11:10 30 07/04/18 11:01 35.1 132 12 137/81 (99) 94 Mechanical Ventilator 30 07/04/18 11:00 30 07/04/18 10:30 35.1 62 12 96/56 (69) 99 Mechanical Ventilator 30 07/04/18 10:01 35.1 64 12 103/56 (72) 96 Mechanical Ventilator 30 07/04/18 09:30 35.0 72 12 123/73 (90) 98 Mechanical Ventilator 30 07/04/18 09:00 35.0 62 12 104/57 (73) 100 Mechanical Ventilator 30 07/04/18 08:30 35.0 60 12 95/55 (68) 100 Mechanical Ventilator 30 07/04/18 08:00 30 07/04/18 08:00 100 Mechanical Ventilator 30 07/04/18 08:00 35.0 66 12 111/61 (78) 99 Mechanical Ventilator 30 07/04/18 07:49 30 07/04/18 06:30 62 12 105/61 (78) 99 07/04/18 06:00 60 12 102/59 (68) 99 07/04/18 05:31 60 12 94/57 (69) 97 07/04/18 05:19 30 07/04/18 05:00 63 12 106/63 (79) 100 07/04/18 04:30 61 12 106/59 (71) 100 07/04/18 04:00 100 Mechanical Ventilator 30 07/04/18 04:00 30 07/04/18 04:00 36.4 07/04/18 04:00 63 12 105/60 (77) 98 07/04/18 03:30 63 12 105/60 (76) 100 07/04/18 03:00 64 12 104/60 (70) 99 07/04/18 02:30 64 12 114/61 (78) 100 Last Recorded Weight-Kilograms: 74.200 Intake & Output 8-Hour Column 07/04/18 07/04/18 07/05/18 15:59 23:59 07:59 Intake Total 668 ml Output Total 135 ml Balance 533 ml 24-Hour Column 07/05/18 07:59 Intake Total 668 ml Output Total 135 ml Balance 533 ml Physical Exam Gen.: No acute distress. On mechanical ventilation. HEENT: Anicteric sclera. Neck: No appreciable JVD. Cardiac: No ventricular heave. Regular. Normal S1-S2. 2/6 holosystolic murmur best heard at the apex. No rubs, or gallops. Pulmonary: Clear to auscultation bilaterally without wheezes, rales, or rhonchi. Abdomen: Soft, nontender, nondistended, with hypoactive bowel sounds. No bruits noted. Extremities: 2+ radial pulses bilaterally. 1+ posterior tibialis pulses bilaterally. Trace to 1+ bilateral lower extremity edema. No cyanosis. Data Laboratory Results: Last 24 Hours Test 07/03/18 18:17 07/03/18 21:29 8/7/18 23:39 07/04/18 04:19 Bedside Glucose (other) 126 mg/dl 116 mg/dl Total Creatine Kinase 1784 U/L Creatine Kinase MB 246.1 ng/ml Creatine Kinase MB Ratio 13.8 Troponin I 125.000 ng/ml White Blood Count 0.58 K/uL Red Blood Count 2.48 M/uL Hemoglobin 7.0 g/dL Hematocrit 21.4 % Mean Corpuscular Volume 86.3 fL Mean Corpuscular Hemoglobin 28.2 pg Mean Corpuscular Hemoglobin Concent 32.7 g/dl Platelet Count 96 K/uL Mean Platelet Volume 10.9 fL Neutrophils (%) (Auto) 62.0 % Lymphocytes (%) (Auto) 25.9 % Monocytes (%) (Auto) 5.2 % Eosinophils (%) (Auto) 0.0 % Basophils (%) (Auto) 0.0 % Neutrophils # (Auto) 0.36 K/uL Lymphocytes # (Auto) 0.15 K/uL Monocytes # (Auto) 0.03 K/uL Eosinophils # (Auto) 0.00 K/uL Basophils # (Auto) 0.00 K/uL RDW Standard Deviation 56.2 fL RDW Coefficient of Variation 17.9 % Immature Granulocyte % (Auto) 6.9 % Immature Granulocyte # (Auto) 0.04 K/uL Toxic Granulation 1+ Platelet Estimate DECREASED Large Platelets 1+ Echinocytes 1+ Sodium Level 136 mmol/L Potassium Level 3.7 mmol/L Chloride Level 107 mmol/L Carbon Dioxide Level 18 mmol/L Anion Gap 11.0 mmol/L Blood Urea Nitrogen 49 mg/dl Creatinine 1.51 mg/dl Est Creatinine Clear Calc Drug Dose 35.9 ml/min Estimated GFR () 48.8 Estimated GFR (Non- 42.1 BUN/Creatinine Ratio 32.4 Random Glucose 115 mg/dl Calcium Level 7.1 mg/dl Phosphorus Level 5.2 mg/dl Magnesium Level 1.8 mg/dl Random Vancomycin Level 14.5 mcg/ml Test 07/04/18 05:43 Bedside Glucose (other) 111 mg/dl Telemetry personally reviewed: No arrhythmia. Assessment and Plan ASSESSMENT/PLAN: 1. NSTEMI: Unclear if he has any further angina. Continue aspirin 81 mg daily. Recommend statin therapy. Recommend beta-kaiden now that pressor support is no longer necessary, if blood pressure allows. When he is awake and able to have a conversation, we can discuss in better detail treatment plan and patient wishes. 2. Ischemic cardiomyopathy: Recommend low-dose carvedilol or metoprolol succinate when blood pressure can tolerate. Pressor support has been discontinued. Would also consider low-dose UBALDO-inhibitor if/when blood pressure allows, also if renal function allows. 3. CAD status post CABG and redo CABG: Supportive care as above. Continue aspirin 81 mg daily. Consider restarting high-intensity statin therapy. 4. Respiratory failure: CVP was 4-5 during examination. He has been receiving IV fluids and despite this, has been able to be weaned with his mechanical ventilator with possible extubation planned later today. As per critical care team. 5. Mitral regurgitation: Significant mitral regurgitation on echocardiogram. Conservative measures for now as per family discussion yesterday. Can monitor over time as appropriate. Given the fact that he has already had 2 sternotomy is for CABG and redo CABG, he is not an optimal surgical candidate. He also has underlying pulmonary metastatic disease according to records. 6. Pulmonary hypertension: Etiology uncertain. 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 Mitral regurgitation could also increase pulmonary pressures. This can be re-evaluated in the future if appropriate. 7. Peripheral arterial disease status post aortobifemoral bypass: Can be followed as outpatient. 8. Sepsis: As per primary and critical care service. 9. Atrial flutter: Has a history of atrial flutter but appears to be in sinus currently. On long-term anticoagulation therapy as per his primary ribbon inker. 10. Tachy-bossman syndrome: Pacemaker in place. 11. Disposition: Cardiology will continue to follow. He is now neutropenic/ pancytopenic. At of care consultation is planning on meeting with patient and family.
[2018-07-04] MEDS: FENTANYL 1250MCG/250ML NSS 250 ML IV SCH (14:28)
[2018-07-04] MEDS ORDERED: ALBUT/IPRATROP 3MG/0.5MG NEB 3 ML VIAL INH PRN (14:45)
[2018-07-04] MEDS ORDERED: ROCURONIUM BROMIDE 10 MG/ML 5 ML VIAL IV ONE (14:49)
--- NOTE | 2018-07-04 15:40 | Critical Care Progress Note ---
Critical Care Progress Note Date of Service Jul 04, 2018. Attending Dr. Arriaza Subjective Overnight the patient remains vented and sedated, his blood pressure was soft requiring low-dose of Levophed, patient did not have any events overnight. Today in the morning, the patient tolerated the CPAP trial for over an hour. He started the volume was 900 and respiratory rate of 13. The patient proceeded to extubation afterward in which he went into pulmonary edema shortly after requiring reintubation. The event occurred with the presence of the family at the bedside, and they realize the gravity of his illness, there are seeking comfort measures at this point. The patient also underwent a bronchoscopy and reintubation which was dictated separately. Objective Physical exam on 07/14/2018 revealed elderly gentleman, appeared somewhat delirious when he got extubated, and severe respiratory distress, thought to be related to pooling secretions at the level of the upper airway, sure enough the patient did have significant pulmonary vascular congestion proven by the bronchoscopy. His heart examination S1-S2 tachycardic, blood pressure has been maintained, O2 saturation is difficult to detect due to cold and clammy extremity, distant crackles bilaterally, abdomen is soft and benign, edema in the periphery noted. Neurologically difficult to assess. Chest x-ray showed pulmonary vascular congestion with cardiomegaly, and laboratory also were reviewed. Assessment & Plan 1. 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 2. 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 3. Non-ST elevation [place]. Extremely elevated troponin, not a candidate for PCI per cardiology. 4. COPD with hyperinflated lungs. 5. Acute kidney insufficiency. Plan: 1. Although the patient tolerated the CPAP trial with good parameters, he did not had a successful extubation. He ended up being reintubated again. 2. Bronchoscopy was done emergently at the bedside due to possibility of secretions in the upper airways, and the findings were consistent with large amount of thin bronchial secretions consistent with increased pulmonary vascular congestion and pulmonary edema. 3. The patient was reintubated under the request of the family until the arrival of the rest of the family from a distance for withdrawal of first was a family are at the bedside. 4. Neupogen was given for neutropenia. 5. Continued on Vanco and Zosyn. 6. Propofol was tapered to off and changed now to Versed and fentanyl. Patient was on fentanyl 75 mics patch on a regular basis. 7. Appreciate palliative care consult. 8. Long Discussion Took place with the family at the bedside, there were emotional, they presented through the respiratory distress event, they understand the gravity of the patient illness. The decision was made to make him comfort measures once all the family is at the bedside. 9. Meanwhile we will continue current treatment. 10. The ventilator adjusted to a higher rate at 20 of respiratory rate due to acidosis. 11. VBG was done and evaluated n.p.o. to the venous blood gas was 81 which speaks for higher PO2 on the arterial blood gas. 12. Discussion with cardiology, the patient deemed not a candidate for any intervention to replace mitral valve which are all in agreement with. Critical care time spent with the patient excluding procedure time was 60 minutes including several discussions with the family. Data Medications: Current Inpatient Medications Medications (Trade) Dose Ordered Sig/Alen Route Start Time Stop Time Status Last Admin Dose Admin Heparin Sodium (Porcine) (Heparin Sq 5000 Unit/0.5ml) 5,000 unit Q8 SQ 07/03/18 08:00 08/02/18 07:59 07/04/18 05:41 5,000 UNIT Pantoprazole Sodium 40 mg/ Syringe 10 ml @ 5 mls/min DAILY IV 07/03/18 09:00 08/02/18 08:59 07/04/18 08:14 5 MLS/MIN Miscellaneous Information (Icu Protocol For Hyperglycemia) 1 ea PRN PRN N/A 07/03/18 05:45 07/05/18 05:44 Propofol (Diprivan Iv Emulsion 100ml Vial) 1 dose PRN PRN IV 07/03/18 05:59 07/06/18 05:58 07/04/18 03:39 1 DOSE Vancomycin HCl (Consult) 1 ea UD PRN N/A 07/03/18 05:45 08/02/18 05:44 Miscellaneous Information (Consult) 1 ea UD PRN N/A 07/03/18 05:45 08/02/18 05:44 Norepinephrine Bitartrate 16 mg/ Dextrose 516 ml @ 0 mls/hr Q0M PRN IV 07/03/18 06:00 08/02/18 05:59 07/03/18 06:00 14.5 MLS/HR Fentanyl Citrate 250 ml @ 15 mls/hr [id number] IV 07/03/18 09:15 07/17/18 09:14 07/04/18 14:28 15 MLS/HR Miscellaneous Information (Consult Glycemic Management Pharmacy) 1 ea UD PRN N/A 07/03/18 09:15 08/02/18 09:14 Glucose (Glucose 40% Gel) 15-30 GRAMS 15 GRAMS... UD PRN PO 07/03/18 09:15 08/02/18 09:14 Glucose (Glucose Chew Tab) 4-8 Tablets 4 Tabl... UD PRN PO 07/03/18 09:15 08/02/18 09:14 Dextrose (Dextrose 50% 50ML Syringe) 25-50ML 25ML FOR ... UD PRN IV 07/03/18 09:15 08/02/18 09:14 Glucagon (Glucagon Inj) 1 mg UD PRN IM 07/03/18 09:15 08/02/18 09:14 Carbohydrates (Carbohydrates For Hypoglycemia) 15-30 GRAMS 15 grams if BSG 54-69... UD PRN PO 07/03/18 09:15 08/02/18 09:14 Piperacillin Sod/ Tazobactam Sod 4.5 gm/Dextrose 120 ml @ 30 mls/hr Q8H IV 07/03/18 16:00 07/10/18 15:59 07/04/18 15:19 30 MLS/HR Insulin Aspart (novoLOG ASPART) SLIDING SCALE Q6 SC 07/03/18 12:00 08/02/18 11:59 Chlorhexidine Gluconate (Peridex Oral Soln) 15 ml DAILY MT 07/04/18 09:00 08/03/18 08:59 07/04/18 08:14 15 ML Artificial Tears (Artificial Tears) 2 drops DAILY OP 07/04/18 09:00 08/03/18 08:59 07/04/18 08:15 2 DROPS Aspirin (Aspirin Chew) 81 mg DAILY NG 07/04/18 09:45 08/03/18 09:44 07/04/18 10:07 81 MG Morphine Sulfate (MoRPHine SULFATE INJ) 2 mg Q2HWA PRN IV 07/04/18 11:45 07/18/18 11:44 Midazolam HCl 250 ml @ 0 mls/hr Q0M PRN IV 07/04/18 12:29 08/03/18 12:28 Albuterol/ Ipratropium (Duoneb) 3 ml Q6R PRN INH 07/04/18 14:45 08/03/18 14:44 I & O: 24-Hour Column 07/05/18 08:00 Intake Total 719 ml Output Total 285 ml Balance 434 ml Vital Signs: Date Time Temp Pulse Resp B/P (MAP) Pulse Ox O2 Delivery O2 Flow Rate FiO2 07/04/18 14:00 35.5 99 12 120/69 (86) 63 Mechanical Ventilator 100 07/04/18 13:30 35.5 103 12 122/68 (86) 62 Mechanical Ventilator 100 07/04/18 13:00 35.6 101 12 125/73 (90) 57 Mechanical Ventilator 100 07/04/18 12:25 100 07/04/18 12:14 121 141/83 22 07/04/18 12:12 122 145/84 20 07/04/18 12:10 128 143/89 37 07/04/18 12:10 36.3 113 12 119/91 31 Mechanical Ventilator 07/04/18 12:08 127 150/91 07/04/18 12:06 124 152/93 07/04/18 12:05 100 07/04/18 12:04 125 151/92 07/04/18 12:03 123 145/91 07/04/18 12:01 106 134/78 07/04/18 11:59 109 126/85 07/04/18 11:57 110 122/79 07/04/18 11:55 112 142/75 07/04/18 11:52 113 140/79 07/04/18 11:50 116 134/87 49 07/04/18 11:10 30 07/04/18 11:01 35.1 132 12 137/81 (99) 94 Mechanical Ventilator 30 07/04/18 11:00 30 07/04/18 10:30 35.1 62 12 96/56 (69) 99 Mechanical Ventilator 30 07/04/18 10:01 35.1 64 12 103/56 (72) 96 Mechanical Ventilator 30 07/04/18 09:30 35.0 72 12 123/73 (90) 98 Mechanical Ventilator 30 07/04/18 09:00 35.0 62 12 104/57 (73) 100 Mechanical Ventilator 30 07/04/18 08:30 35.0 60 12 95/55 (68) 100 Mechanical Ventilator 30 07/04/18 08:00 30 07/04/18 08:00 100 Mechanical Ventilator 30 07/04/18 08:00 35.0 66 12 111/61 (78) 99 Mechanical Ventilator 30 07/04/18 08:00 Mechanical Ventilator 30 07/04/18 07:49 30 07/04/18 06:30 62 12 105/61 (78) 99 07/04/18 06:00 60 12 102/59 (68) 99 07/04/18 05:31 60 12 94/57 (69) 97 07/04/18 05:19 30 07/04/18 05:00 63 12 106/63 (79) 100 07/04/18 04:30 61 12 106/59 (71) 100 07/04/18 04:00 100 Mechanical Ventilator 30 07/04/18 04:00 30 07/04/18 04:00 36.4 07/04/18 04:00 63 12 105/60 (77) 98 07/04/18 03:30 63 12 105/60 (76) 100 07/04/18 03:00 64 12 104/60 (70) 99 07/04/18 02:30 64 12 114/61 (78) 100 07/04/18 02:01 69 12 114/63 (81) 100 07/04/18 01:30 62 14 110/62 (73) 97 07/04/18 01:26 30 07/04/18 01:00 61 12 108/60 (77) 96 07/04/18 00:30 62 12 108/61 (76) 95 07/04/18 00:01 36.4 07/04/18 00:00 62 12 106/59 (74) 97 07/03/18 23:59 98 Mechanical Ventilator 30 07/03/18 23:59 30 07/03/18 23:30 60 12 101/58 (68) 96 07/03/18 23:01 68 12 118/70 (83) 100 07/03/18 22:30 64 12 107/58 (69) 99 07/03/18 22:00 61 13 105/60 (77) 98 07/03/18 21:52 30 07/03/18 21:30 60 12 94/57 (67) 98 07/03/18 21:00 62 12 103/63 (78) 98 07/03/18 20:30 62 12 106/62 (74) 98 07/03/18 20:13 61 12 110/64 (74) 97 07/03/18 20:00 30 07/03/18 20:00 98 Mechanical Ventilator 30 07/03/18 20:00 69 12 113/66 (77) 98 07/03/18 20:00 36.4 07/03/18 19:00 62 12 105/64 (75) 97 07/03/18 18:50 30 07/03/18 18:00 36.4 60 12 101/61 (74) 98 Mechanical Ventilator 30 07/03/18 17:17 30 07/03/18 17:00 36.4 69 25 115/72 (86) 98 Mechanical Ventilator 30 07/03/18 16:00 36.4 100 13 103/74 (84) 94 Mechanical Ventilator 30 Laboratory Results: Last 24 Hours Test 07/03/18 18:17 07/03/18 21:29 07/03/18 23:39 07/04/18 04:19 Bedside Glucose (other) 126 mg/dl 116 mg/dl Total Creatine Kinase 1784 U/L Creatine Kinase MB 246.1 ng/ml Creatine Kinase MB Ratio 13.8 Troponin I 125.000 ng/ml White Blood Count 0.58 K/uL Red Blood Count 2.48 M/uL Hemoglobin 7.0 g/dL Hematocrit 21.4 % Mean Corpuscular Volume 86.3 fL Mean Corpuscular Hemoglobin 28.2 pg Mean Corpuscular Hemoglobin Concent 32.7 g/dl Platelet Count 96 K/uL Mean Platelet Volume 10.9 fL Neutrophils (%) (Auto) 62.0 % Lymphocytes (%) (Auto) 25.9 % Monocytes (%) (Auto) 5.2 % Eosinophils (%) (Auto) 0.0 % Basophils (%) (Auto) 0.0 % Neutrophils # (Auto) 0.36 K/uL Lymphocytes # (Auto) 0.15 K/uL Monocytes # (Auto) 0.03 K/uL Eosinophils # (Auto) 0.00 K/uL Basophils # (Auto) 0.00 K/uL RDW Standard Deviation 56.2 fL RDW Coefficient of Variation 17.9 % Immature Granulocyte % (Auto) 6.9 % Immature Granulocyte # (Auto) 0.04 K/uL Toxic Granulation 1+ Platelet Estimate DECREASED Large Platelets 1+ Echinocytes 1+ Sodium Level 136 mmol/L Potassium Level 3.7 mmol/L Chloride Level 107 mmol/L Carbon Dioxide Level 18 mmol/L Anion Gap 11.0 mmol/L Blood Urea Nitrogen 49 mg/dl Creatinine 1.51 mg/dl Est Creatinine Clear Calc Drug Dose 35.9 ml/min Estimated GFR () 48.8 Estimated GFR (Non- 42.1 BUN/Creatinine Ratio 32.4 Random Glucose 115 mg/dl Calcium Level 7.1 mg/dl Phosphorus Level 5.2 mg/dl Magnesium Level 1.8 mg/dl Random Vancomycin Level 14.5 mcg/ml Test 07/04/18 05:43 07/04/18 14:30 Bedside Glucose (other) 111 mg/dl Venous Blood pH 7.16 Venous Blood Partial Pressure CO2 54 mmHg Venous Blood Partial Pressure O2 81 mmHg Venous Blood HCO3 19 mmol/L Venous Blood Oxygen Saturation 90.6 % Venous Blood Base Excess -9.3 mEq/L
--- NOTE | 2018-07-04 15:42 | Procedure Note ---
Procedure Note Procedure Date Jul 04, 2018. Procedure Description Procedure Name: Intubation Procedure time out: side/site verified Consent obtained: verbal (From the family mainly the daughter who is a nurse at the bedside and the .) Performed by: attending Indications: therapeutic Contraindications: none Description: Intubation was done at the bedside in a patient who is in respiratory distress, the patient had acute pulmonary edema after extubation requiring reintubation, consent verbally was obtained from the daughter was at the bedside and she is a healthcare proxy as well as the , they agreed to the procedure, the patient was induced with 50 mics of fentanyl 50 mg of rocuronium. Using #4 MAC #8 ET tube, the tube was placed to 27 cm and adjusted with a bronc to 4 cm above the morgan. The end-tidal CO2 was yellow, equal breath sounds bilaterally, the tube was secured at 27 cm, no immediate complications. Tolerated the procedure very well. No cardiac arrhythmia. Complications: none Patient tolerated procedure: well
--- NOTE | 2018-07-04 15:45 | Procedure Note ---
Procedure Note Procedure Date Jul 04, 2018. Procedure Description Procedure Name: Bronchoscopy Procedure time out: side/site verified, patient ID confirmed, correct procedure Consent obtained: verbal (From the daughter consent was obtained at the bedside verbally due to the emergency nature of the procedure.) Performed by: attending Indications: diagnostic, therapeutic Contraindications: none Description: Bronchoscopy was done at the bedside, the patient was extubated earlier where he went into respiratory distress and appeared to have upper airway secretions. Discussed with the daughter at the bedside and she agreed to the procedure. The patient was localized with 5 mL 4% lidocaine nebulized in addition to total of 50 mics of fentanyl and 2 mg of Versed throughout the entire procedure in 25 mcg/1 mg increments respectively. The bronchoscope passed through the oral cavity using a bite block. The patient monitored in the ICU #11 with ICU standard of monitoring. The findings as follows: 1. The vocal cords were barely moving. 2. Large amount of secretions were mainly in the airways extending from the distal trachea down to the sub-subsegmental level. 3. Suction was provided and over 35 mL of thin blood-tinged fluid was removed immediately. 4. The fluid appeared to be thin and the findings are more consistent with pulmonary vascular congestion and pulmonary edema. 5. No endobronchial lesion was noted. 6. Mucosal changes consistent with COPD were noted. 7. The bronchoscope was removed and the bite-block also was removed. 8. The patient proceeded to reintubation afterward as the patient is in pulmonary edema and would not sustain his respiratory status. Complications: none Patient tolerated procedure: well
--- NOTE | 2018-07-04 16:36 | Palliative Care Progress Note ---
Palliative Care Progress Note Date of Service Jul 04, 2018. Subjective Pt evaluation today including: conversation w/ family (daughter Florinda, granddaughter Sylvia, Nicho), physical exam, chart review, conversation w/ artist consultant (Coral Alfaro, PAVincenzo) Pain: no obvious signs of pain PO Intake: none Voiding: simpson catheter in place Met for extensive amount of time today at bedside with patient's Nicho, daughter Florinda, and granddaughter Sylvia. Patient was extubated this morning but unfortunately began decompensating quickly. He then underwent bedside bronchoscopy to try and clear secretions. Patient continued to decompensate and required reintubation. His echo shows signs of heart failure and end-stage disease. His oxygen saturations were in the 20-30s initially after reintubation. Family meeting held at bedside and it was decided to make patient a DNR and wait for other family to arrive tomorrow, then terminally extubate. I confirmed with the family that there will be no escalation in care. If patient passes away before the grandson (who is in the [facility] and currently in [place], flying in in the morning) is able to get here, that is okay. They do not want patient to suffer so they are okay with treating any symptoms such as pain or agitation. Continue care just as is for now, plan for terminal extubation some time tomorrow. Review of Systems unable to obtain due to obtundation on vent Objective Vital Signs Date Time Temp Pulse Resp B/P (MAP) Pulse Ox O2 Delivery O2 Flow Rate FiO2 07/04/18 09:30 35.0 72 12 123/73 (90) 98 Mechanical Ventilator 30 07/04/18 09:00 35.0 62 12 104/57 (73) 100 Mechanical Ventilator 30 07/04/18 08:30 35.0 60 12 95/55 (68) 100 Mechanical Ventilator 30 07/04/18 08:00 30 07/04/18 08:00 100 Mechanical Ventilator 30 07/04/18 08:00 35.0 66 12 111/61 (78) 99 Mechanical Ventilator 30 07/04/18 07:49 30 07/04/18 06:30 62 12 105/61 (78) 99 07/04/18 06:00 60 12 102/59 (68) 99 07/04/18 05:31 60 12 94/57 (69) 97 8/8/18 05:19 30 818 05:00 63 12 106/63 (79) 100 8 04:30 61 12 106/59 (71) 100 8 04:00 100 Mechanical Ventilator 30 8 04:00 30 8 04:00 36.4 818 04:00 63 12 105/60 (77) 98 8 03:30 63 12 105/60 (76) 100 07/04/18 03:00 64 12 104/60 (70) 99 8 02:30 64 12 114/61 (78) 100 07/04/18 02:01 69 12 114/63 (81) 100 07/04/18 01:30 62 14 110/62 (73) 97 07/04/18 01:26 30 8 01:00 61 12 108/60 (77) 96 07/04/18 00:30 62 12 108/61 (76) 95 07/04/18 00:01 36.4 07/04/18 00:00 62 12 106/59 (74) 97 8 23:59 98 Mechanical Ventilator 30 07/03/18 23:59 30 07/03/18 23:30 60 12 101/58 (68) 96 8 23:01 68 12 118/70 (83) 100 8 22:30 64 12 107/58 (69) 99 18 22:00 61 13 105/60 (77) 98 07/03/18 21:52 30 818 21:30 60 12 94/57 (67) 98 8//18 21:00 62 12 103/63 (78) 98 818 20:30 62 12 106/62 (74) 98 8/18 20:13 61 12 110/64 (74) 97 8/18 20:00 30 8/ 20:00 98 Mechanical Ventilator 30 18 20:00 69 12 113/66 (77) 98 8//18 20:00 36.4 8//18 19:00 62 12 105/64 (75) 97 8/18 18:50 30 818 18:00 36.4 60 12 101/61 (74) 98 Mechanical Ventilator 30 07/03/18 17:17 30 07/03/18 17:00 36.4 69 25 115/72 (86) 98 Mechanical Ventilator 30 07/03/18 16:00 36.4 100 13 103/74 (84) 94 Mechanical Ventilator 30 07/03/18 15:00 36.4 67 25 104/62 (76) 98 Mechanical Ventilator 30 07/03/18 14:26 30 07/03/18 14:00 36.4 67 23 98/64 (75) Mechanical Ventilator 30 07/03/18 13:00 36.4 64 23 85/57 (66) Mechanical Ventilator 30 Physical Exam General Appearance: no apparent distress, + cachetic, + thin ENT: + pertinent finding (ETT and OGT present) Neck: no JVD Respiratory/Chest: no accessory muscle use, + decreased breath sounds, + rhonchi (coarse throughout) Cardiovascular: + tachycardia, + pertinent finding (pedal pulses extremely weak /thready) Abdomen: normal bowel sounds, soft Neurologic/Psychiatric: + pertinent finding (obtunded at this time on vent) Skin: + mottled (bilateral lower extremities), + pallor Laboratory Results Last 24 Hours Test 07/03/18 13:28 07/03/18 18:17 07/03/18 21:29 07/03/18 23:39 Total Creatine Kinase 2318 U/L 1784 U/L Creatine Kinase MB 328.5 ng/ml 246.1 ng/ml Creatine Kinase MB Ratio 14.2 13.8 Troponin I 168.000 ng/ml 125.000 ng/ml Bedside Glucose (other) 126 mg/dl 116 mg/dl Test 07/04/18 04:19 07/04/18 05:43 White Blood Count 0.58 K/uL Red Blood Count 2.48 M/uL Hemoglobin 7.0 g/dL Hematocrit 21.4 % Mean Corpuscular Volume 86.3 fL Mean Corpuscular Hemoglobin 28.2 pg Mean Corpuscular Hemoglobin Concent 32.7 g/dl Platelet Count 96 K/uL Mean Platelet Volume 10.9 fL Neutrophils (%) (Auto) 62.0 % Lymphocytes (%) (Auto) 25.9 % Monocytes (%) (Auto) 5.2 % Eosinophils (%) (Auto) 0.0 % Basophils (%) (Auto) 0.0 % Neutrophils # (Auto) 0.36 K/uL Lymphocytes # (Auto) 0.15 K/uL Monocytes # (Auto) 0.03 K/uL Eosinophils # (Auto) 0.00 K/uL Basophils # (Auto) 0.00 K/uL RDW Standard Deviation 56.2 fL RDW Coefficient of Variation 17.9 % Immature Granulocyte % (Auto) 6.9 % Immature Granulocyte # (Auto) 0.04 K/uL Toxic Granulation 1+ Platelet Estimate DECREASED Large Platelets 1+ Echinocytes 1+ Sodium Level 136 mmol/L Potassium Level 3.7 mmol/L Chloride Level 107 mmol/L Carbon Dioxide Level 18 mmol/L Anion Gap 11.0 mmol/L Blood Urea Nitrogen 49 mg/dl Creatinine 1.51 mg/dl Est Creatinine Clear Calc Drug Dose 35.9 ml/min Estimated GFR () 48.8 Estimated GFR (Non- 42.1 BUN/Creatinine Ratio 32.4 Random Glucose 115 mg/dl Calcium Level 7.1 mg/dl Phosphorus Level 5.2 mg/dl Magnesium Level 1.8 mg/dl Random Vancomycin Level 14.5 mcg/ml Bedside Glucose (other) 111 mg/dl Assessment and Plan Problem list: Metastatic Siva cell carcinoma Respiratory failure with hypoxia Cardiogenic shock Goals of care Palliative care recs: -Patient is now DNR. Confirmed this with patient's daughter, , granddaughter and other family members at bedside. -Patient to remain intubated, continue current medical care with NO ESCALATION IN CARE, until the rest of family is able to arrive tomorrow. The family does understand that patient could before then, they are okay with that. -Family wants to continue to make patient comfortable and treat for any symptoms. I would recommend using IV morphine 2mg IV Q1h PRN pain/SOB. -Planning to terminally extubate tomorrow once all family is here. If patient is symptomatic after extubation, morphine gtt may be needed. Total time spent 120 minutes with >50% of time spent at bedside with patient's family and ICU team discussing medical condition, goals of care, end of life care, and proving family support. Palliative Performance Scale: 20 % Continued [facility] stay due to: abnormal vital signs, multiple IV medications needed Discharge planning: uncertain
--- NOTE | 2018-07-04 18:47 | Progress Note ---
Subjective Date of Service: Jul 04, 2018. Subjective Pt evaluation today including: conversation w/ family (numerous including and children at bedside), physical exam, chart review, lab review, review of studies, conversation w/ professional housing consultant (critical care, cardiology (last pm), and palliative care) Pain: nothing obvious PO Intake: npo Voiding: simpson catheter in place events of last 24 hours reviewed & noted patient briefly extubated this am bronch was completed; was in pulmonary edema significant hypoxia occurred and was re-intubated off pressors family have made patient a level 5 DNR they are awaiting a grandson in [place] to arrive before initiating comfort care measures there will be no escalation of care, however, if he experiences deterioration tonight unable to obtain ROS due to sedation Problem List Medical Problems: (1) Acute respiratory failure with hypoxia Status: Acute (2) Anemia Status: Acute (3) Hypotension Status: Acute (4) Lactic acidosis Status: Acute (5) Pneumonia Status: Acute (6) Sepsis Status: Acute Objective Vital Signs Date Time Temp Pulse Resp B/P (MAP) Pulse Ox O2 Delivery O2 Flow Rate FiO2 07/04/18 18:00 35.4 65 20 88/52 (64) 07/04/18 17:58 100 07/04/18 17:31 35.4 63 20 81/48 (59) 07/04/18 17:00 35.4 118 20 85/51 (62) 97 Mechanical Ventilator 100 07/04/18 16:31 35.4 69 20 94/59 (71) Mechanical Ventilator 100 07/04/18 16:00 35.4 74 20 101/66 (78) Mechanical Ventilator 100 07/04/18 16:00 Mechanical Ventilator 100 07/04/18 16:00 100 07/04/18 15:15 100 07/04/18 15:01 35.4 96 12 119/77 (91) 70 Mechanical Ventilator 100 07/04/18 14:00 35.5 99 12 120/69 (86) 63 Mechanical Ventilator 100 07/04/18 13:30 35.5 103 12 122/68 (86) 62 Mechanical Ventilator 100 07/04/18 13:00 35.6 101 12 125/73 (90) 57 Mechanical Ventilator 100 07/04/18 12:25 100 07/04/18 12:14 121 141/83 22 07/04/18 12:12 122 145/84 20 07/04/18 12:10 128 143/89 37 07/04/18 12:10 36.3 113 12 119/91 31 Mechanical Ventilator 07/04/18 12:08 127 150/91 07/04/18 12:06 124 152/93 07/04/18 12:05 100 07/04/18 12:04 125 151/92 07/04/18 12:03 123 145/91 07/04/18 12:01 106 134/78 07/04/18 11:59 109 126/85 07/04/18 11:57 110 122/79 07/04/18 11:55 112 142/75 07/04/18 11:52 113 140/79 07/04/18 11:50 116 134/87 49 07/04/18 11:10 30 07/04/18 11:01 35.1 132 12 137/81 (99) 94 Mechanical Ventilator 30 07/04/18 11:00 30 07/04/18 10:30 35.1 62 12 96/56 (69) 99 Mechanical Ventilator 30 07/04/18 10:01 35.1 64 12 103/56 (72) 96 Mechanical Ventilator 30 07/04/18 09:30 35.0 72 12 123/73 (90) 98 Mechanical Ventilator 30 07/04/18 09:00 35.0 62 12 104/57 (73) 100 Mechanical Ventilator 30 07/04/18 08:30 35.0 60 12 95/55 (68) 100 Mechanical Ventilator 30 07/04/18 08:00 30 07/04/18 08:00 100 Mechanical Ventilator 30 07/04/18 08:00 35.0 66 12 111/61 (78) 99 Mechanical Ventilator 30 07/04/18 08:00 Mechanical Ventilator 30 07/04/18 07:49 30 07/04/18 06:30 62 12 105/61 (78) 99 07/04/18 06:00 60 12 102/59 (68) 99 07/04/18 05:31 60 12 94/57 (69) 97 07/04/18 05:19 30 07/04/18 05:00 63 12 106/63 (79) 100 07/04/18 04:30 61 12 106/59 (71) 100 07/04/18 04:00 100 Mechanical Ventilator 30 07/04/18 04:00 30 8/8/18 04:00 36.4 818 04:00 63 12 105/60 (77) 98 8 03:30 63 12 105/60 (76) 100 8 03:00 64 12 104/60 (70) 99 818 02:30 64 12 114/61 (78) 100 8 02:01 69 12 114/63 (81) 100 8 01:30 62 14 110/62 (73) 97 8 01:26 30 818 01:00 61 12 108/60 (77) 96 8 00:30 62 12 108/61 (76) 95 8 00:01 36.4 07/04/18 00:00 62 12 106/59 (74) 97 07/03/18 23:59 98 Mechanical Ventilator 30 07/03/18 23:59 30 07/03/18 23:30 60 12 101/58 (68) 96 8 23:01 68 12 118/70 (83) 100 8 22:30 64 12 107/58 (69) 99 8 22:00 61 13 105/60 (77) 98 8 21:52 30 8 21:30 60 12 94/57 (67) 98 8 21:00 62 12 103/63 (78) 98 818 20:30 62 12 106/62 (74) 98 818 20:13 61 12 110/64 (74) 97 818 20:00 30 818 20:00 98 Mechanical Ventilator 30 18 20:00 69 12 113/66 (77) 98 818 20:00 36.4 818 19:00 62 12 105/64 (75) 97 8/18 18:50 30 Physical Exam General Appearance: no apparent distress, + thin ENT: + pertinent finding (ETT, enteric tube in place) Respiratory/Chest: no respiratory distress, no accessory muscle use, + decreased breath sounds (bases) Cardiovascular: regular rate, rhythm, no gallop, + systolic murmur (2/6 LLSB) Abdomen: normal bowel sounds, non tender, no organomegaly, + distended Extremities: + slow capillary refill, + pertinent finding (ischemic appearing toes b/l feet, cold to touch, pulses not palpable) Neurologic/Psychiatric: + pertinent finding (sedated) Skin: + pallor Laboratory Results Last 24 Hours Test 07/03/18 21:29 07/03/18 23:39 07/04/18 04:19 07/04/18 05:43 Total Creatine Kinase 1784 U/L Creatine Kinase MB 246.1 ng/ml Creatine Kinase MB Ratio 13.8 Troponin I 125.000 ng/ml Bedside Glucose (other) 116 mg/dl 111 mg/dl White Blood Count 0.58 K/uL Red Blood Count 2.48 M/uL Hemoglobin 7.0 g/dL Hematocrit 21.4 % Mean Corpuscular Volume 86.3 fL Mean Corpuscular Hemoglobin 28.2 pg Mean Corpuscular Hemoglobin Concent 32.7 g/dl Platelet Count 96 K/uL Mean Platelet Volume 10.9 fL Neutrophils (%) (Auto) 62.0 % Lymphocytes (%) (Auto) 25.9 % Monocytes (%) (Auto) 5.2 % Eosinophils (%) (Auto) 0.0 % Basophils (%) (Auto) 0.0 % Neutrophils # (Auto) 0.36 K/uL Lymphocytes # (Auto) 0.15 K/uL Monocytes # (Auto) 0.03 K/uL Eosinophils # (Auto) 0.00 K/uL Basophils # (Auto) 0.00 K/uL RDW Standard Deviation 56.2 fL RDW Coefficient of Variation 17.9 % Immature Granulocyte % (Auto) 6.9 % Immature Granulocyte # (Auto) 0.04 K/uL Toxic Granulation 1+ Platelet Estimate DECREASED Large Platelets 1+ Echinocytes 1+ Sodium Level 136 mmol/L Potassium Level 3.7 mmol/L Chloride Level 107 mmol/L Carbon Dioxide Level 18 mmol/L Anion Gap 11.0 mmol/L Blood Urea Nitrogen 49 mg/dl Creatinine 1.51 mg/dl Est Creatinine Clear Calc Drug Dose 35.9 ml/min Estimated GFR () 48.8 Estimated GFR (Non- 42.1 BUN/Creatinine Ratio 32.4 Random Glucose 115 mg/dl Calcium Level 7.1 mg/dl Phosphorus Level 5.2 mg/dl Magnesium Level 1.8 mg/dl Random Vancomycin Level 14.5 mcg/ml Test 07/04/18 14:30 07/04/18 18:10 07/04/18 18:13 Venous Blood pH 7.16 Venous Blood Partial Pressure CO2 54 mmHg Venous Blood Partial Pressure O2 81 mmHg Venous Blood HCO3 19 mmol/L Venous Blood Oxygen Saturation 90.6 % Venous Blood Base Excess -9.3 mEq/L Bedside Glucose 67 mg/dl 72 mg/dl Assessment and Plan 82yo male - 1. 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 2. acute hypoxic respiratory failure 2nd to pneumonia + acute systolic CHF. 3. NSTEMI with markedly elevated troponin with prior h/o CABG. 4. lactic acidosis, ongoing. 5. chemotherapy induced pancytopenia and severe neutropenia. Worse today. 6. anemia. 7. abdominal pain with abdominal distension - at the very least has ileus; cannot exclude SBO. enteric tube in place. 8. pacemaker status. 9. acute kidney injury. 10. shock, 2nd to sepsis. 11. T2DM. 12. coagulopathy - likely multifactorial. 13. hypomagnesemia. 14. acute systolic CHF 2nd to NSTEMI and ischemic cardiomyopathy. 15. moderate-severe mitral regurgitation, unknown if acute or chronic. 16. metabolic encephalopathy. family extensively updated today by multiple providers including palliative care offered to call a director of workforce development or bank guard - family thinking about this plan - no escalation in care if patient worsens today/tonight continue current supportive care measures grandson is on his way from [place] and family is hopeful he can make it here in time before any further decompensation anticipate that is imminent, even despite supportive care, likely <48 hours Continued [facility] stay due to: abnormal vital signs, multiple IV medications needed, other (likely transition to palliative care/comfort measures)
[2018-07-05] VITALS (16 sets, daily range): BP systolic 99–118; BP diastolic 51–73; PULSE 60–77; TEMP 35.7–36; O2SAT 97–100
[2018-07-05] MEDS ORDERED: DEXTROSE 50% 50 ML SYR IV ONE (00:30)
[2018-07-05 05:00] LABS: CALCIUM 7.8 mg/dl (8.5-10.1); CREATININE 1.83 mg/dl (0.60-1.40); PHOSPHORUS 5.4 mg/dl (2.5-4.9); POTASSIUM 3.2 mmol/L (3.5-5.1)
[2018-07-05 05:01] LABS: HEMATOCRIT 21.9 % (42-52); HEMOGLOBIN 7.2 g/dL (14.0-18.0); MEAN CELL VOLUME 87.6 fL (80-100); MEAN CORPUSCULAR HEMOGLOBIN 28.8 pg (25-34); MEAN CORPUSCULAR HGB CONC 32.9 g/dl (32-36); MEAN PLATELET VOLUME 11.4 fL (7.4-10.4); PLATELET COUNT 64 K/uL (130-400); RED CELL DISTRIBUTION WIDTH CV 18.2 % (11.5-14.5); WHITE BLOOD COUNT 0.34 K/uL (4.8-10.8)
[2018-07-05] MEDS: FENTANYL 1250MCG/250ML NSS 250 ML IV SCH (05:47)
[2018-07-05] MEDS: INSULIN ASPART 100 UNITS/ML 3 ML PEN SC SCH ×3 (06:00→11:59)
[2018-07-05] MEDS: HEPARIN SOD 5000 UNIT/0.5 ML CARP SQ SCH ×2 (06:22→13:54)
--- NOTE | 2018-07-05 07:08 | DIAGNOSTIC IMAGING REPORT ---
CHEST ONE VIEW PORTABLE CLINICAL HISTORY: 82 years-old Male presenting with resp failure. TECHNIQUE: Portable upright AP view of the chest was obtained. COMPARISON: 07/04/2018. FINDINGS: There has been interval intubation with the endotracheal tube less than 1 cm from the morgan. Nasogastric tube has been place terminating in the proximal stomach, sidehole not visualized and potentially within the esophagus. Right internal jugular central venous catheter terminates at the superior cavoatrial junction. Left subclavian pacer with leads in the right atrium and right ventricle unchanged. Numerous overlying external leads degrade image quality. Median sternotomy wires and mediastinal surgical clips noted. Atherosclerosis of aortic arch. Prominence of pulmonary vasculature with mild cardiac silhouette enlargement. However, pulmonary vasculature is less engorged than on prior exam. Interval decrease in diffuse lung density. Decrease trace pleural effusions. No large pneumothorax. IMPRESSION: 1. Endotracheal tube terminates within 1 cm of the morgan; repositioning recommended. 2. Nasogastric tube terminates in the proximal stomach; sidehole potentially within the distal esophagus. Consider advancement. 3. Significant interval decrease in volume overload and pulmonary edema. Electronically signed by: Ralph Rae M.D. 07/05/2018 7:07 AM Dictated Date/Time: 07/05/2018 7:04 AM
[2018-07-05] MEDS: PIPERACILL/TAZOBAC IV 4.5 GM in DEXTROSE 5% 100ML 100 ML IV SCH ×2 (07:46→15:56)
[2018-07-05] MEDS: ASPIRIN 81 MG CHEW NG SCH (07:47)
[2018-07-05] MEDS: PANTOprazole INJ 40 MG in SYRINGE 0 ML IV SCH (07:48)
[2018-07-05] MEDS: ARTIFICIAL TEARS OP SOLN OP SCH (07:48)
--- NOTE | 2018-07-05 10:21 | Pharmacy Progress Note ---
Pharmacy Abx Dose Short Note Date of Service Jul 05, 2018. Assessment & Plan Assessment * 82 yo M critically ill in ICU. Anticipate terminal extubation (possibly later today) after family arrives from out of town. * On Zosyn, vancomycin for septic shock 2nd PNA - continue for now per ICU rounds * SCr acutely increased today, but good UOP per ICU rounds Vancomycin * Random level this AM is supratherapeutic and trended up since yesterday after a 1250 mg IV dose was administered, from 14.5 to 23.2 mcg/mL * Will schedule a later today, when level anticipated to be 17 mcg/mL based on ke of 0.293 hr-1 * Will significantly reduce dose 2nd possible worsening renal function and a significant trend up in vancomycin level as compared to yesterday Plan * Vancomycin 500 mg IV @ 1400 * Random level with AM labs Pharmacy will continue to follow and will adjust dose/frequency as necessary. Thank you.
--- NOTE | 2018-07-05 10:52 | Palliative Care Progress Note ---
Palliative Care Progress Note Date of Service Jul 05, 2018. Subjective Pt evaluation today including: physical exam Pain: appears comfortable Voiding: simpson catheter in place Patient evaluated for follow up assessment. No family was present in the room during my visit. Based on previous discussion, we are awaiting additional family to arrive from [place] today and the plan is for a terminal extubation. Upon assessment, the patient is intubated and sedated with Fentanyl 75mcg and Versed 2mg/hr. The patient was not responding to painful stimuli, his extremities were cool and becoming mottled on his knees. The patient does appear comfortable without any facial grimacing or signs of distress. He is on A /C 0.80 RR 20. He was breathing with the ventilator. The family has expressed not wanting to escalate care in the event of a cardiac arrest. At this time we will continue to support the family with any additional needs during the terminal extubation when they express they are ready to move forward as such. Review of Systems Unable to proceed with ROS due to patient being intubated, sedated and not following commands. Objective Vital Signs Date Time Temp Pulse Resp B/P (MAP) Pulse Ox O2 Delivery O2 Flow Rate FiO2 07/05/18 09:17 80 07/05/18 08:00 100 07/05/18 08:00 Mechanical Ventilator 100 07/05/18 08:00 35.9 65 20 108/59 (69) 100 07/05/18 07:01 36.0 66 20 106/64 (70) 100 07/05/18 06:54 100 07/05/18 06:01 36.0 67 20 105/62 (79) 100 07/05/18 05:11 100 07/05/18 05:00 36.0 70 20 118/72 (91) 100 07/05/18 04:00 36.0 65 20 103/58 (69) 100 07/05/18 04:00 100 Mechanical Ventilator 100 07/05/18 04:00 100 07/05/18 03:00 35.9 77 21 114/73 (92) 97 07/05/18 02:00 35.8 75 20 113/73 (89) 100 07/05/18 01:59 100 07/05/18 01:00 35.8 67 20 111/59 (70) 100 07/05/18 00:00 35.7 65 20 104/61 (77) 100 07/04/18 23:01 35.7 82 20 122/96 (101) 100 07/04/18 22:55 100 07/04/18 22:00 35.7 63 20 100/57 (74) 07/04/18 21:00 35.7 64 20 99/55 (64) 07/04/18 20:00 35.6 75 20 123/71 (97) 100 07/04/18 20:00 100 07/04/18 20:00 100 Mechanical Ventilator 100 07/04/18 19:10 100 07/04/18 18:00 35.4 65 20 88/52 (64) 07/04/18 17:58 100 07/04/18 17:31 35.4 63 20 81/48 (59) 07/04/18 17:00 35.4 118 20 85/51 (62) 97 Mechanical Ventilator 100 07/04/18 16:31 35.4 69 20 94/59 (71) Mechanical Ventilator 100 07/04/18 16:00 35.4 74 20 101/66 (78) Mechanical Ventilator 100 07/04/18 16:00 Mechanical Ventilator 100 07/04/18 16:00 100 07/04/18 15:15 100 07/04/18 15:01 35.4 96 12 119/77 (91) 70 Mechanical Ventilator 100 07/04/18 14:00 35.5 99 12 120/69 (86) 63 Mechanical Ventilator 100 07/04/18 13:30 35.5 103 12 122/68 (86) 62 Mechanical Ventilator 100 07/04/18 13:00 35.6 101 12 125/73 (90) 57 Mechanical Ventilator 100 07/04/18 12:25 100 07/04/18 12:14 121 141/83 22 07/04/18 12:12 122 145/84 20 07/04/18 12:10 128 143/89 37 07/04/18 12:10 36.3 113 12 119/91 31 Mechanical Ventilator 07/04/18 12:08 127 150/91 07/04/18 12:06 124 152/93 07/04/18 12:05 100 07/04/18 12:04 125 151/92 07/04/18 12:03 123 145/91 07/04/18 12:01 106 134/78 8/8/18 11:59 109 126/85 07/04/18 11:57 110 122/79 07/04/18 11:55 112 142/75 07/04/18 11:52 113 140/79 07/04/18 11:50 116 134/87 49 07/04/18 11:10 30 07/04/18 11:01 35.1 132 12 137/81 (99) 94 Mechanical Ventilator 30 07/04/18 11:00 30 Physical Exam General Appearance: no apparent distress (pt lying in the bed, sedated) Eyes: PERRL Respiratory/Chest: + pertinent finding (ETT present with no audible cuff leak) Cardiovascular: regular rate, rhythm, no murmur Abdomen: normal bowel sounds, non tender, soft Neurologic/Psychiatric: + pertinent finding (pt sedated and somnolent) Skin: + pallor Laboratory Results Last 24 Hours Test 07/04/18 14:30 07/04/18 18:10 07/04/18 18:13 07/04/18 23:49 Venous Blood pH 7.16 Venous Blood Partial Pressure CO2 54 mmHg Venous Blood Partial Pressure O2 81 mmHg Venous Blood HCO3 19 mmol/L Venous Blood Oxygen Saturation 90.6 % Venous Blood Base Excess -9.3 mEq/L Bedside Glucose 67 mg/dl 72 mg/dl 28 mg/dl Test 07/05/18 00:03 07/05/18 00:08 07/05/18 00:22 07/05/18 02:49 Random Glucose 88 mg/dl Bedside Glucose (other) 87 mg/dl Bedside Glucose 88 mg/dl 53 mg/dl Test 07/05/18 02:50 07/05/18 03:24 07/05/18 04:26 07/05/18 05:56 Bedside Glucose 94 mg/dl Bedside Glucose (other) 125 mg/dl 92 mg/dl White Blood Count 0.34 K/uL Red Blood Count 2.50 M/uL Hemoglobin 7.2 g/dL Hematocrit 21.9 % Mean Corpuscular Volume 87.6 fL Mean Corpuscular Hemoglobin 28.8 pg Mean Corpuscular Hemoglobin Concent 32.9 g/dl RDW Standard Deviation 59.0 fL RDW Coefficient of Variation 18.2 % Platelet Count 64 K/uL Mean Platelet Volume 11.4 fL Sodium Level 136 mmol/L Potassium Level 3.2 mmol/L Chloride Level 107 mmol/L Carbon Dioxide Level 19 mmol/L Anion Gap 10.0 mmol/L Blood Urea Nitrogen 52 mg/dl Creatinine 1.83 mg/dl Est Creatinine Clear Calc Drug Dose 29.6 ml/min Estimated GFR () 38.7 Estimated GFR (Non- 33.4 BUN/Creatinine Ratio 28.5 Random Glucose 106 mg/dl Calcium Level 7.8 mg/dl Phosphorus Level 5.4 mg/dl Magnesium Level 1.8 mg/dl Random Vancomycin Level 23.2 mcg/ml Assessment and Plan Palliative Care Encounter [place] cell carcinoma with metastasis Respiratory failure with hypoxia Cardiogenic shock Goals of care Palliative care recs: -Continue supportive measures with no escalation in care in the event that his heart would stop before family arrives. Per discussion yesterday, the family is aware that he could pass prior to family arriving and they are understanding of this; however, he appears hemodynamically stable at this current time. -Upon extubation, assess patients comfort level and provide Morphine 1mg IV as needed with titration to an appropriate level of comfort. Palliative Performance Scale: 10 % Continued [facility] stay due to: abnormal vital signs, multiple IV medications needed, other (likely transition to palliative care/comfort measures) Discharge planning: other (terminal extubation planned today when family presents) Counseling and Coordination Total time spent 25 minutes with >50% of that time spent assessing the patient and reviewing the chart.
--- NOTE | 2018-07-05 11:54 | Pharmacy Progress Note ---
Pharmacy Glycemic Sign Off Nt Date of Service Jul 05, 2018. Assessment & Plan ASSESSMENT: * No insulin administered x48 hours and BSG's actually low (? local tissue hypoperfusion in some fingers causing some POC BSG's to be significantly low as iSTAT does not correlate to some of the POC BSG's) * Novolog ordered at correction factor only - patient will only be administered insulin if BSG's > 160 mg/dL * No Lantus has been administered * Discussed pharmacy signing off glycemic consult w Dr. Arriaza PLAN FOR INPATIENT GLYCEMIC CONTROL: No changes needed to current regimen. * Continue NovoLog per scale ACHS/Q6hrs while NPO * Goal range = 130-160 mg/dl * CF = 25 mg/dl/unit * CR = none * Pharmacy is signing off of glycemic consult and will no longer be making adjustments to inpatient regimen. Please feel free to re-consult if needed. Thank you.
--- NOTE | 2018-07-05 12:02 | Critical Care Progress Note ---
Critical Care Progress Note Date of Service Jul 05, 2018. Attending Dr. Arriaza Subjective The patient remains vented and sedated, no events occurred overnight, he does have some movement but not purposeful, does not follow any commands. Objective Physical exam on 07/04/2018 revealed elderly gentleman, appeared somewhat delirious when he got extubated, and severe respiratory distress, thought to be related to pooling secretions at the level of the upper airway, sure enough the patient did have significant pulmonary vascular congestion proven by the bronchoscopy. His heart examination S1-S2 tachycardic, blood pressure has been maintained, O2 saturation is difficult to detect due to cold and clammy extremity, distant crackles bilaterally, abdomen is soft and benign, edema in the periphery noted. Neurologically difficult to assess. Chest x-ray showed pulmonary vascular congestion with cardiomegaly, and laboratory also were reviewed. Physical exam on 07/05/2018 showed stable vital signs with a blood pressure of 102 /53, 100% on 60% FiO2, heart rate is 66, respiratory rate is 20, systolic ejection murmur, distant breath sounds, abdomen is benign, pale and chronically ill-appearing. Chest x-ray showed decreased pulmonary edema, likely due to high PEEP of 10. Remains leukopenic. Assessment & Plan 1. 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 2. 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 3. Non-ST elevation AL. Extremely elevated troponin, not a candidate for PCI per cardiology. 4. COPD with hyperinflated lungs. 5. Acute kidney insufficiency. Plan: 1. Continue vent management with rate of 20, decrease the PEEP to 5, decrease FiO2 to 60%. 2. Hypothermia was noted likely due to poor cardiac output. 3. The patient remains neutropenic with white count of 0.34. He showed also pancytopenia. 4. Replete hypokalemia. 5. Continued on Vanco and Zosyn. 6. Continue with fentanyl and Versed. 7. Appreciate palliative care consult. 8. continue with Zosyn. 9. Awaiting the arrival of family members at the bedside for terminal wean and comfort measures. The patient has inoperable severe mitral regurgitation which will place the patient at risk for acute respiratory failure secondary to pulmonary edema, it did occur 24 hours ago. 10. The ventilator adjusted to a higher rate at 20 of respiratory rate due to acidosis. 11. Hold off on Neupogen today. 12. His glucose has been on the low side, we will correct periodically. No need for glycemic control consult. Discussed with pharmacy. Critical care time spent with the patient excluding procedure time was 45 minutes. Data Medications: Current Inpatient Medications Medications (Trade) Dose Ordered Sig/Alen Route Start Time Stop Time Status Last Admin Dose Admin Heparin Sodium (Porcine) (Heparin Sq 5000 Unit/0.5ml) 5,000 unit Q8 SQ 07/03/18 08:00 08/02/18 07:59 07/05/18 06:22 5,000 UNIT Pantoprazole Sodium 40 mg/ Syringe 10 ml @ 5 mls/min DAILY IV 07/03/18 09:00 08/02/18 08:59 07/05/18 07:48 5 MLS/MIN Vancomycin HCl (Consult) 1 ea UD PRN N/A 07/03/18 05:45 08/02/18 05:44 Miscellaneous Information (Consult) 1 ea UD PRN N/A 07/03/18 05:45 08/02/18 05:44 Norepinephrine Bitartrate 16 mg/ Dextrose 516 ml @ 0 mls/hr Q0M PRN IV 07/03/18 06:00 08/02/18 05:59 07/03/18 06:00 14.5 MLS/HR Fentanyl Citrate 250 ml @ 15 mls/hr [id number] IV 07/03/18 09:15 07/17/18 09:14 07/05/18 05:47 15 MLS/HR Glucose (Glucose 40% Gel) 15-30 GRAMS 15 GRAMS... UD PRN PO 07/03/18 09:15 08/02/18 09:14 Glucose (Glucose Chew Tab) 4-8 Tablets 4 Tabl... UD PRN PO 07/03/18 09:15 08/02/18 09:14 Dextrose (Dextrose 50% 50ML Syringe) 25-50ML 25ML FOR ... UD PRN IV 07/03/18 09:15 08/02/18 09:14 07/05/18 00:09 50 ML Glucagon (Glucagon Inj) 1 mg UD PRN IM 07/03/18 09:15 08/02/18 09:14 Carbohydrates (Carbohydrates For Hypoglycemia) 15-30 GRAMS 15 grams if BSG 54-69... UD PRN PO 07/03/18 09:15 08/02/18 09:14 Piperacillin Sod/ Tazobactam Sod 4.5 gm/Dextrose 120 ml @ 30 mls/hr Q8H IV 07/03/18 16:00 07/10/18 15:59 07/05/18 07:46 30 MLS/HR Insulin Aspart (novoLOG ASPART) SLIDING SCALE Q6 SC 07/03/18 12:00 08/02/18 11:59 Artificial Tears (Artificial Tears) 2 drops DAILY OP 07/04/18 09:00 08/03/18 08:59 07/05/18 07:48 2 DROPS Aspirin (Aspirin Chew) 81 mg DAILY NG 07/04/18 09:45 08/03/18 09:44 07/05/18 07:47 81 MG Morphine Sulfate (MoRPHine SULFATE INJ) 2 mg Q2HWA PRN IV 07/04/18 11:45 07/18/18 11:44 Midazolam HCl 250 ml @ 0 mls/hr Q0M PRN IV 07/04/18 12:29 08/03/18 12:28 Albuterol/ Ipratropium (Duoneb) 3 ml Q6R PRN INH 07/04/18 14:45 08/03/18 14:44 Vancomycin HCl 500 mg/Sodium Chloride 110 ml @ 125 mls/hr TODAY@1400 ONCE IV 07/05/18 14:00 07/05/18 14:52 I & O: 24-Hour Column 07/06/18 08:00 Output Total 40 ml Balance -40 ml Vital Signs: Date Time Temp Pulse Resp B/P (MAP) Pulse Ox O2 Delivery O2 Flow Rate FiO2 07/05/18 11:19 40 07/05/18 09:17 80 07/05/18 08:00 100 07/05/18 08:00 Mechanical Ventilator 100 07/05/18 08:00 35.9 65 20 108/59 (69) 100 07/05/18 08:00 Mechanical Ventilator 100 07/05/18 07:01 36.0 66 20 106/64 (70) 100 07/05/18 06:54 100 07/05/18 06:01 36.0 67 20 105/62 (79) 100 07/05/18 05:11 100 07/05/18 05:00 36.0 70 20 118/72 (91) 100 07/05/18 04:00 36.0 65 20 103/58 (69) 100 07/05/18 04:00 100 Mechanical Ventilator 100 07/05/18 04:00 100 07/05/18 03:00 35.9 77 21 114/73 (92) 97 07/05/18 02:00 35.8 75 20 113/73 (89) 100 07/05/18 01:59 100 07/05/18 01:00 35.8 67 20 111/59 (70) 100 07/05/18 00:00 35.7 65 20 104/61 (77) 100 07/04/18 23:01 35.7 82 20 122/96 (101) 100 07/04/18 22:55 100 07/04/18 22:00 35.7 63 20 100/57 (74) 07/04/18 21:00 35.7 64 20 99/55 (64) 07/04/18 20:00 35.6 75 20 123/71 (97) 100 07/04/18 20:00 100 07/04/18 20:00 100 Mechanical Ventilator 100 07/04/18 19:10 100 07/04/18 18:00 35.4 65 20 88/52 (64) 07/04/18 17:58 100 07/04/18 17:31 35.4 63 20 81/48 (59) 07/04/18 17:00 35.4 118 20 85/51 (62) 97 Mechanical Ventilator 100 07/04/18 16:31 35.4 69 20 94/59 (71) Mechanical Ventilator 100 07/04/18 16:00 35.4 74 20 101/66 (78) Mechanical Ventilator 100 07/04/18 16:00 Mechanical Ventilator 100 07/04/18 16:00 100 07/04/18 15:15 100 07/04/18 15:01 35.4 96 12 119/77 (91) 70 Mechanical Ventilator 100 07/04/18 14:00 35.5 99 12 120/69 (86) 63 Mechanical Ventilator 100 07/04/18 13:30 35.5 103 12 122/68 (86) 62 Mechanical Ventilator 100 07/04/18 13:00 35.6 101 12 125/73 (90) 57 Mechanical Ventilator 100 07/04/18 12:25 100 8/8/18 12:14 121 141/83 22 07/04/18 12:12 122 145/84 20 07/04/18 12:10 128 143/89 37 07/04/18 12:10 36.3 113 12 119/91 31 Mechanical Ventilator 07/04/18 12:08 127 150/91 07/04/18 12:06 124 152/93 07/04/18 12:05 100 07/04/18 12:04 125 151/92 07/04/18 12:03 123 145/91 07/04/18 12:01 106 134/78 07/04/18 11:59 109 126/85 Laboratory Results: Last 24 Hours Test 07/04/18 14:30 07/04/18 18:10 07/04/18 18:13 07/04/18 23:49 Venous Blood pH 7.16 Venous Blood Partial Pressure CO2 54 mmHg Venous Blood Partial Pressure O2 81 mmHg Venous Blood HCO3 19 mmol/L Venous Blood Oxygen Saturation 90.6 % Venous Blood Base Excess -9.3 mEq/L Bedside Glucose 67 mg/dl 72 mg/dl 28 mg/dl Test 07/05/18 00:03 07/05/18 00:08 07/05/18 00:22 07/05/18 02:49 Random Glucose 88 mg/dl Bedside Glucose (other) 87 mg/dl Bedside Glucose 88 mg/dl 53 mg/dl Test 07/05/18 02:50 07/05/18 03:24 07/05/18 04:26 07/05/18 05:56 Bedside Glucose 94 mg/dl Bedside Glucose (other) 125 mg/dl 92 mg/dl White Blood Count 0.34 K/uL Red Blood Count 2.50 M/uL Hemoglobin 7.2 g/dL Hematocrit 21.9 % Mean Corpuscular Volume 87.6 fL Mean Corpuscular Hemoglobin 28.8 pg Mean Corpuscular Hemoglobin Concent 32.9 g/dl RDW Standard Deviation 59.0 fL RDW Coefficient of Variation 18.2 % Platelet Count 64 K/uL Mean Platelet Volume 11.4 fL Sodium Level 136 mmol/L Potassium Level 3.2 mmol/L Chloride Level 107 mmol/L Carbon Dioxide Level 19 mmol/L Anion Gap 10.0 mmol/L Blood Urea Nitrogen 52 mg/dl Creatinine 1.83 mg/dl Est Creatinine Clear Calc Drug Dose 29.6 ml/min Estimated GFR () 38.7 Estimated GFR (Non- 33.4 BUN/Creatinine Ratio 28.5 Random Glucose 106 mg/dl Calcium Level 7.8 mg/dl Phosphorus Level 5.4 mg/dl Magnesium Level 1.8 mg/dl Random Vancomycin Level 23.2 mcg/ml Test 07/05/18 11:51 Bedside Glucose 97 mg/dl
[2018-07-05] MEDS ORDERED: VANCOMYCIN IV 500 MG in SODIUM CHLORIDE 0.9% 100ML 100 ML IV ONE (14:00)
--- NOTE | 2018-07-05 14:02 | Cardiology Follow-Up ---
Subjective Date of Service: Jul 05, 2018. Pt evaluation today including: conversation w/ patient, conversation w/ family , physical exam, chart review, lab review, review of inpatient medication list History of Present Illness Mr. 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 He also has a history of prostate cancer status post XRT. 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 Yesterday he was extubated and reportedly developed flash pulmonary edema. He underwent bronchoscopy and re-intubation. Since then, family meetings have occurred and the decision has been made to extubate once all family members are at the bedside with the anticipation of comfort measures at that point. For now , they are continuing with mechanical ventilation but will not escalate care. At the bedside currently is his daughter, son, granddaughter, [id number], and . They did have some questions which were answered to the best of my ability. Their main concern right now is that he does not feel any discomfort upon extubation. Review of systems: As above. Review of systems unobtainable secondary to sedated/intubated state. Medications Current Inpatient Medications Medications (Trade) Dose Ordered Sig/Alen Route Start Time Stop Time Status Last Admin Dose Admin Heparin Sodium (Porcine) (Heparin Sq 5000 Unit/0.5ml) 5,000 unit Q8 SQ 07/03/18 08:00 08/02/18 07:59 07/05/18 06:22 5,000 UNIT Pantoprazole Sodium 40 mg/ Syringe 10 ml @ 5 mls/min DAILY IV 07/03/18 09:00 08/02/18 08:59 07/05/18 07:48 5 MLS/MIN Vancomycin HCl (Consult) 1 ea UD PRN N/A 07/03/18 05:45 08/02/18 05:44 Miscellaneous Information (Consult) 1 ea UD PRN N/A 07/03/18 05:45 08/02/18 05:44 Norepinephrine Bitartrate 16 mg/ Dextrose 516 ml @ 0 mls/hr Q0M PRN IV 07/03/18 06:00 08/02/18 05:59 07/03/18 06:00 14.5 MLS/HR Fentanyl Citrate 250 ml @ 15 mls/hr [id number] IV 07/03/18 09:15 07/17/18 09:14 07/05/18 05:47 15 MLS/HR Glucose (Glucose 40% Gel) 15-30 GRAMS 15 GRAMS... UD PRN PO 07/03/18 09:15 08/02/18 09:14 Glucose (Glucose Chew Tab) 4-8 Tablets 4 Tabl... UD PRN PO 07/03/18 09:15 08/02/18 09:14 Dextrose (Dextrose 50% 50ML Syringe) 25-50ML 25ML FOR ... UD PRN IV 07/03/18 09:15 08/02/18 09:14 07/05/18 00:09 50 ML Glucagon (Glucagon Inj) 1 mg UD PRN IM 07/03/18 09:15 08/02/18 09:14 Carbohydrates (Carbohydrates For Hypoglycemia) 15-30 GRAMS 15 grams if BSG 54-69... UD PRN PO 07/03/18 09:15 08/02/18 09:14 Piperacillin Sod/ Tazobactam Sod 4.5 gm/Dextrose 120 ml @ 30 mls/hr Q8H IV 07/03/18 16:00 07/10/18 15:59 07/05/18 07:46 30 MLS/HR Insulin Aspart (novoLOG ASPART) SLIDING SCALE Q6 SC 07/03/18 12:00 08/02/18 11:59 Artificial Tears (Artificial Tears) 2 drops DAILY OP 07/04/18 09:00 08/03/18 08:59 07/05/18 07:48 2 DROPS Aspirin (Aspirin Chew) 81 mg DAILY NG 07/04/18 09:45 08/03/18 09:44 07/05/18 07:47 81 MG Morphine Sulfate (MoRPHine SULFATE INJ) 2 mg Q2HWA PRN IV 07/04/18 11:45 07/18/18 11:44 Midazolam HCl 250 ml @ 0 mls/hr Q0M PRN IV 07/04/18 12:29 08/03/18 12:28 Albuterol/ Ipratropium (Duoneb) 3 ml Q6R PRN INH 07/04/18 14:45 08/03/18 14:44 Vancomycin HCl 500 mg/Sodium Chloride 110 ml @ 125 mls/hr TODAY@1400 ONCE IV 07/05/18 14:00 07/05/18 14:52 Objective Vital Signs Past 12 Hours Date Time Temp Pulse Resp B/P (MAP) Pulse Ox O2 Delivery O2 Flow Rate FiO2 07/05/18 13:33 40 07/05/18 11:19 40 07/05/18 11:01 35.9 60 20 102/53 (66) 100 07/05/18 10:00 35.9 67 20 108/57 (74) 100 07/05/18 09:17 80 07/05/18 09:01 35.9 64 20 100/54 (66) 100 07/05/18 08:00 100 07/05/18 08:00 Mechanical Ventilator 100 07/05/18 08:00 35.9 65 20 108/59 (69) 100 07/05/18 08:00 Mechanical Ventilator 100 07/05/18 07:01 36.0 66 20 106/64 (70) 100 07/05/18 06:54 100 07/05/18 06:01 36.0 67 20 105/62 (79) 100 07/05/18 05:11 100 07/05/18 05:00 36.0 70 20 118/72 (91) 100 07/05/18 04:00 36.0 65 20 103/58 (69) 100 07/05/18 04:00 100 Mechanical Ventilator 100 07/05/18 04:00 100 07/05/18 03:00 35.9 77 21 114/73 (92) 97 07/05/18 02:00 35.8 75 20 113/73 (89) 100 07/05/18 01:59 100 Last Recorded Weight-Kilograms: 77.500 Intake & Output 8-Hour Column 07/05/18 07/06/18 07/06/18 16:00 00:00 08:00 Output Total 165 ml Balance -165 ml 24-Hour Column 07/06/18 08:00 Output Total 165 ml Balance -165 ml Physical Exam Gen.: No acute distress. On mechanical ventilation. Sedated. HEENT: Anicteric sclera. Neck: No appreciable JVD. Cardiac: No ventricular heave. Regular. Normal S1-S2. 1/6 holosystolic murmur best heard at the apex. No rubs, or gallops. Pulmonary: Clear to auscultation bilaterally without wheezes, rales, or rhonchi. Abdomen: Soft, nontender, nondistended, with hypoactive bowel sounds. No bruits noted. Extremities: 2+ radial pulses bilaterally. 1+ posterior tibialis pulses bilaterally. 1+ bilateral lower extremity edema. No cyanosis. Data Laboratory Results: Last 24 Hours Test 07/04/18 14:30 07/04/18 18:10 07/04/18 18:13 07/04/18 23:49 Venous Blood pH 7.16 Venous Blood Partial Pressure CO2 54 mmHg Venous Blood Partial Pressure O2 81 mmHg Venous Blood HCO3 19 mmol/L Venous Blood Oxygen Saturation 90.6 % Venous Blood Base Excess -9.3 mEq/L Bedside Glucose 67 mg/dl 72 mg/dl 28 mg/dl Test 07/05/18 00:03 07/05/18 00:08 07/05/18 00:22 07/05/18 02:49 Random Glucose 88 mg/dl Bedside Glucose (other) 87 mg/dl Bedside Glucose 88 mg/dl 53 mg/dl Test 07/05/18 02:50 07/05/18 03:24 07/05/18 04:26 07/05/18 05:56 Bedside Glucose 94 mg/dl Bedside Glucose (other) 125 mg/dl 92 mg/dl White Blood Count 0.34 K/uL Red Blood Count 2.50 M/uL Hemoglobin 7.2 g/dL Hematocrit 21.9 % Mean Corpuscular Volume 87.6 fL Mean Corpuscular Hemoglobin 28.8 pg Mean Corpuscular Hemoglobin Concent 32.9 g/dl RDW Standard Deviation 59.0 fL RDW Coefficient of Variation 18.2 % Platelet Count 64 K/uL Mean Platelet Volume 11.4 fL Sodium Level 136 mmol/L Potassium Level 3.2 mmol/L Chloride Level 107 mmol/L Carbon Dioxide Level 19 mmol/L Anion Gap 10.0 mmol/L Blood Urea Nitrogen 52 mg/dl Creatinine 1.83 mg/dl Est Creatinine Clear Calc Drug Dose 29.6 ml/min Estimated GFR () 38.7 Estimated GFR (Non- 33.4 BUN/Creatinine Ratio 28.5 Random Glucose 106 mg/dl Calcium Level 7.8 mg/dl Phosphorus Level 5.4 mg/dl Magnesium Level 1.8 mg/dl Random Vancomycin Level 23.2 mcg/ml Test 07/05/18 11:51 Bedside Glucose 97 mg/dl Telemetry personally reviewed. No arrhythmia. CVP 3-4. Assessment and Plan ASSESSMENT/PLAN: 1. NSTEMI: He reportedly did have chest pain yesterday after extubation. He now appears comfortable while sedated. Family wishes for comfort measures upon extubation. No further evaluation/therapeutic interventions recommended at this time. 2. Ischemic cardiomyopathy: Comfort care following extubation. 3. CAD status post CABG and redo CABG: Please see plan as above. 4. Respiratory failure: He did not tolerate extubation yesterday with flash pulmonary edema according to critical care notes. This may be related to his significant mitral regurgitation. He is not a good candidate for aortic valve replacement and family does not wish to entertain such invasive measures. They planned to terminally extubate when all family members are present. 5. Mitral regurgitation: Significant mitral regurgitation noted on echo. This may be related to his recent myocardial infarction. Comfort measures as above. 6. Pulmonary hypertension: No further evaluation necessary at this time. 7. Disposition: Cardiology will sign off at this time. 35 minutes spent, including meeting with family, answering questions, and discussing patient care.
[2018-07-05] MEDS ORDERED: MoRPHine SULFATE 4 MG/ML 1 ML CARP\\VIAL ONE (16:58)
[2018-07-05] MEDS ORDERED: NURSING VERBAL MED ORDER ONE (17:15)
[2018-07-05] MEDS ORDERED: ONDANSETRON INJ 2 MG/ML 2 ML VIAL IV PRN (17:15)
[2018-07-05] MEDS ORDERED: SCOPOLAMINE 1.5 MG TDSY TD SCH (18:00)
[2018-07-05] MEDS ORDERED: LORAZEPAM 2 MG/ML 1 ML VIAL IV PRN (18:45)
[2018-07-05] MEDS: ATROPINE SULFATE 1% OP SOLN 5 ML BTL PO PRN ×3 (19:55→22:13)
[2018-07-05] MEDS: MoRPHine SULF/NSS 250MG/250ML 250 ML IV PRN ×6 (19:58→23:21)
--- NOTE | 2018-07-05 20:11 | Progress Note ---
Subjective Date of Service: Jul 05, 2018. Subjective Pt evaluation today including: conversation w/ family, physical exam, chart review, conversation w/ toy consultant (critical care) Voiding: simpson catheter in place patient's family was all assembled during my visit including a grandson who had arrived from [place] patient has been spontaneously moving throughout the day but has remained comfortable family ready to terminally extubate the patient from the vent ROS cannot be obtained due to mental status Problem List Medical Problems: (1) Acute respiratory failure with hypoxia Status: Acute (2) Anemia Status: Acute (3) Hypotension Status: Acute (4) Lactic acidosis Status: Acute (5) Pneumonia Status: Acute (6) Sepsis Status: Acute Objective Vital Signs Date Time Temp Pulse Resp B/P (MAP) Pulse Ox O2 Delivery O2 Flow Rate FiO2 07/05/18 19:03 36.0 61 20 100 07/05/18 15:48 40 07/05/18 14:01 36.0 61 20 100/52 (66) 100 07/05/18 13:33 40 07/05/18 13:01 36.0 61 20 99/51 (67) 100 07/05/18 12:00 35.9 66 20 116/56 (69) 100 07/05/18 11:19 40 07/05/18 11:01 35.9 60 20 102/53 (66) 100 07/05/18 10:00 35.9 67 20 108/57 (74) 100 07/05/18 09:17 80 07/05/18 09:01 35.9 64 20 100/54 (66) 100 07/05/18 08:00 100 07/05/18 08:00 Mechanical Ventilator 100 07/05/18 08:00 35.9 65 20 108/59 (69) 100 07/05/18 08:00 Mechanical Ventilator 100 07/05/18 07:01 36.0 66 20 106/64 (70) 100 07/05/18 06:54 100 07/05/18 06:01 36.0 67 20 105/62 (79) 100 07/05/18 05:11 100 07/05/18 05:00 36.0 70 20 118/72 (91) 100 07/05/18 04:00 36.0 65 20 103/58 (69) 100 07/05/18 04:00 100 Mechanical Ventilator 100 07/05/18 04:00 100 07/05/18 03:00 35.9 77 21 114/73 (92) 97 07/05/18 02:00 35.8 75 20 113/73 (89) 100 07/05/18 01:59 100 07/05/18 01:00 35.8 67 20 111/59 (70) 100 07/05/18 00:00 35.7 65 20 104/61 (77) 100 07/04/18 23:01 35.7 82 20 122/96 (101) 100 07/04/18 22:55 100 07/04/18 22:00 35.7 63 20 100/57 (74) 07/04/18 21:00 35.7 64 20 99/55 (64) Physical Exam General Appearance: no apparent distress, + pertinent finding (sedated, intubated) ENT: + pertinent finding (ETT in place, enteric tube in place) Neck: no JVD Respiratory/Chest: no respiratory distress, no accessory muscle use, + decreased breath sounds (bases) Cardiovascular: regular rate, rhythm, no gallop, + systolic murmur (LLSB) Abdomen: non tender, + abnormal bowel sounds (decreased), + distended Extremities: + slow capillary refill, + pertinent finding (pulses not appreciable on palpation) Laboratory Results Last 24 Hours Test 07/04/18 23:49 07/05/18 00:03 07/05/18 00:08 07/05/18 00:22 Bedside Glucose 28 mg/dl 88 mg/dl Random Glucose 88 mg/dl Bedside Glucose (other) 87 mg/dl Test 07/05/18 02:49 07/05/18 02:50 07/05/18 03:24 07/05/18 04:26 Bedside Glucose 53 mg/dl 94 mg/dl Bedside Glucose (other) 125 mg/dl White Blood Count 0.34 K/uL Red Blood Count 2.50 M/uL Hemoglobin 7.2 g/dL Hematocrit 21.9 % Mean Corpuscular Volume 87.6 fL Mean Corpuscular Hemoglobin 28.8 pg Mean Corpuscular Hemoglobin Concent 32.9 g/dl RDW Standard Deviation 59.0 fL RDW Coefficient of Variation 18.2 % Platelet Count 64 K/uL Mean Platelet Volume 11.4 fL Sodium Level 136 mmol/L Potassium Level 3.2 mmol/L Chloride Level 107 mmol/L Carbon Dioxide Level 19 mmol/L Anion Gap 10.0 mmol/L Blood Urea Nitrogen 52 mg/dl Creatinine 1.83 mg/dl Est Creatinine Clear Calc Drug Dose 29.6 ml/min Estimated GFR () 38.7 Estimated GFR (Non- 33.4 BUN/Creatinine Ratio 28.5 Random Glucose 106 mg/dl Calcium Level 7.8 mg/dl Phosphorus Level 5.4 mg/dl Magnesium Level 1.8 mg/dl Random Vancomycin Level 23.2 mcg/ml Test 07/05/18 05:56 07/05/18 11:51 Bedside Glucose (other) 92 mg/dl Bedside Glucose 97 mg/dl Assessment and Plan 82yo male - 1. 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 2. acute hypoxic respiratory failure 2nd to pneumonia + acute systolic CHF. 3. NSTEMI with markedly elevated troponin with prior h/o CABG. 4. lactic acidosis 2nd to above. 5. chemotherapy induced pancytopenia and severe neutropenia. 6. anemia. 7. abdominal pain with abdominal distension - at the very least has ileus; cannot exclude SBO. 8. pacemaker status. 9. acute kidney injury. 10. shock, 2nd to sepsis. 11. T2DM. 12. coagulopathy - likely multifactorial. 13. hypomagnesemia. 14. acute systolic CHF 2nd to NSTEMI and ischemic cardiomyopathy. 15. moderate-severe mitral regurgitation, unknown if acute or chronic. Concern it is acute from his NSTEMI. 16. metabolic encephalopathy. plan - terminally extubate from the vent; place on NC O2 for comfort d/c all tubes except simpson catheter d/c all vital signs, labs, BSGs, etc morphine drip - start 4mg/hr, titrate by 1mg increments for optimal patient comfort (patient had been on fentanyl patch for lengthy period of time pre- hospitalization) ativan IV prn scopalamine patch atropine drops prn if he survives longer than anticipated then will transfer to [facility] for ongoing comfort care measures support given to family Continued [facility] stay due to: multiple IV medications needed, other (comfort care )
[2018-07-06] MEDS: CHECK SCOPOLAMINE PATCH PLACEMENT SCH ×3 (00:13→16:00)
[2018-07-06] MEDS: ATROPINE SULFATE 1% OP SOLN 5 ML BTL PO PRN (05:22)
--- NOTE | 2018-07-06 06:58 | Progress Note ---
Post ICU Progress Note Date & Time Jul 06, 2018 at 06:54 Vital Signs Vital Signs Past 12 Hours Date Time Temp Pulse Resp B/P (MAP) Pulse Ox O2 Delivery O2 Flow Rate FiO2 07/06/18 00:00 Nasal Cannula 2.0 07/05/18 20:00 Nasal Cannula 2.0 07/05/18 19:03 36.0 61 20 100 Notes Mental Status: see Notes Nausea / Vomiting: see Notes Pain: see Notes Airway Patency, RR, SpO2: see Notes BP & HR: see Notes Patient is an 82-year-old male who was initially admitted to the ICU and transferred from [facility]. The patient was intubated and sedated with respiratory failure. The patient did require vasopressors as well as sedation while intubated. His stay was complicated by severe NSTEMI. Additionally, the patient did do well with weaning trial, however with extubation, he rapidly decompensated and developed flash pulmonary edema requiring reintubation. Eventually, conversation was had with family and it was felt best that the patient be terminally extubated with comfort measures only. He is currently on the fourth floor at this point. On evaluation this morning, the patient has snoring respirations. He does not waken. Additional recommendations: No further recommendations at this time. Thank you for allowing us to participate in the care of this patient. At this time, Critical Care Services will sign off on this patient. Please feel free to reconsult as needed.
--- NOTE | 2018-07-06 11:58 | Palliative Care Progress Note ---
Palliative Care Progress Note Date of Service Jul 06, 2018.
--- NOTE | 2018-07-06 16:34 | Palliative Care Progress Note ---
Palliative Care Progress Note Date of Service Jul 06, 2018. Subjective Pt evaluation today including: conversation w/ family (daughter, Florinda Trejo), physical exam, chart review Patient is TRAFFIC TECHNICIAN. Obtunded on continuous morphine gtt. Review of Systems unable to obtain ROS due to obtundation Objective Vital Signs Date Time Temp Pulse Resp B/P (MAP) Pulse Ox O2 Delivery O2 Flow Rate FiO2 07/06/18 08:00 Room Air 07/06/18 00:00 Nasal Cannula 2.0 07/05/18 20:00 Nasal Cannula 2.0 07/05/18 19:03 36.0 61 20 100 Physical Exam General Appearance: no apparent distress ENT: + pertinent finding (oral mucosa dry) Neck: supple, no JVD Respiratory/Chest: no respiratory distress, no accessory muscle use, + rhonchi Cardiovascular: regular rate, rhythm, no edema, + pertinent finding (unable to palpate pedal pulses) Abdomen: normal bowel sounds, soft Neurologic/Psychiatric: + pertinent finding (obtunded) Skin: + mottled (right foot), + pallor Assessment and Plan Problem list: Metastatic Siva cell carcinoma Respiratory failure with hypoxia Cardiogenic shock Goals of care Palliative care recs: -Patient is now DNR. -Comfort measures only. -Continue morphine infusion. Is currently at 10mg/hr. Patient is comfortable on this. -Continue scopolamine patch. Secretions are controlled. -Provided support and end of life discussion with patient's daughter, Florinda. Total time spent 35 minutes with >50% of time spent at bedside with patient's family discussing end of life care, and proving family support. Palliative Performance Scale: 10 % Continued [facility] stay due to: multiple IV medications needed, other (comfort care )
--- NOTE | 2018-07-06 17:22 | Hospitalist Progress Note ---
Hospitalist Progress Note Date of Service Jul 06, 2018. Subjective Pt evaluation today including: conversation w/ family (Daughter at the bedside) Voiding: simpson catheter in place Patient is completely obtunded and appears comfortable on a morphine drip. Daughter was at the bedside and does not have any questions or concerns. She notes that his right foot appears mottled Additional Comments: Not obtainable due to patient being obtunded Objective Vital Signs Date Time Temp Pulse Resp B/P (MAP) Pulse Ox O2 Delivery O2 Flow Rate FiO2 07/06/18 08:00 Room Air 07/06/18 00:00 Nasal Cannula 2.0 07/05/18 20:00 Nasal Cannula 2.0 07/05/18 19:03 36.0 61 20 100 Physical Exam General Appearance: no apparent distress (Obtunded, snoring loudly and mouth breathing) ENT: + pertinent finding (Dry mucous membranes in the oropharynx) Neck: trachea midline Respiratory/Chest: no respiratory distress, no accessory muscle use, + pertinent finding (Snoring, with bilateral rhonchi) Cardiovascular: + bradycardia, + systolic murmur (LLSB) Abdomen: non tender, soft Extremities: + pertinent finding (Right great toe and second and third toes with purple mottling, pedal pulses not palpable bilaterally, trace pitting edema in the legs bilaterally) Neurologic/Psychiatric: + pertinent finding (Obtunded) Skin: warm/dry Assessment and Plan This patient is an 82yo male with history as below who presented as a transfer from [facility] with cardiogenic and septic shock, and NSTEMI, and ventilator dependent respiratory failure, now on comfort measures only- 1. stage 4 [place] Cell Cancer with mets to the lungs/abdomen. 2. acute hypoxic respiratory failure 2nd to pneumonia + acute systolic CHF. 3. NSTEMI with markedly elevated troponin with prior h/o CABG. 4. lactic acidosis 2nd to above. 5. chemotherapy induced pancytopenia and severe neutropenia. 6. anemia. 7. abdominal pain with abdominal distension - at the very least has ileus; cannot exclude SBO. 8. pacemaker status. 9. acute kidney injury. 10. shock, 2nd to sepsis. 11. T2DM. 12. coagulopathy - likely multifactorial. 13. hypomagnesemia. 14. acute systolic CHF 2nd to NSTEMI and ischemic cardiomyopathy. 15. moderate-severe mitral regurgitation, unknown if acute or chronic. Concern it is acute from his NSTEMI. 16. metabolic encephalopathy. plan -appears comfortable, no concerns at this time terminally extubated from the vent on 07/05; continues on NC O2 for comfort d/c'd all tubes except simpson catheter and has right IJ in place for IV comfort medications d/c'd all vital signs, labs, BSGs, etc -Continue morphine drip -currently at 10 mg/hour -Continue Ativan IV prn -Continue scopalamine patch -Continue atropine drops prn Expect he should pass in the next 1-2 days-discussed with family at bedside and gave support
--- NOTE | 2018-07-06 18:46 | Death Pronouncement Note ---
Pronouncement Note Date & Time of Jul 06, 2018. 1830 Pronouncement At time of pronouncement the patients pupils were fixed and dilated, there was no spontaneous respiratory effort, no palpable pulse, no audible heart tones, and no response to pain or voice.
--- NOTE | 2018-07-06 18:59 | Death Summary ---
Summary of Admission Date Jul 03, 2018 at 05:30 Date & Time of Jul 06, 2018. 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 Pneumonia Suspected septic shock Acute systolic CHF CAD with history of CABG Pulmonary edema Pulmonary hypertension Lactic acidosis Chemotherapy induced pancytopenia and severe neutropenia Anemia Abdominal pain Acute kidney injury Peripheral arterial disease status post aortobifemoral bypass Tachy-bossman syndrome status post pacemaker Atrial flutter on anticoagulation therapy Carotid artery disease Type 2 diabetes Hypertension Dyslipidemia Moderate-severe mitral valve regurgitation Prostate cancer status post XRT and chemotherapy Coagulopathy Hypomagnesemia Acute metabolic encephalopathy COPD Hospital Course This patient is an 82yo male with history as below who presented as a transfer from [facility] with cardiogenic and septic shock, and NSTEMI, and ventilator dependent respiratory failure, who was then transitioned to comfort measures only after being reintubated for flash pulmonary edema with an overall very poor prognosis for meaningful recovery- 1. stage 4 [place] Cell Cancer with mets to the lungs/abdomen. 2. acute hypoxic respiratory failure 2nd to pneumonia + acute systolic CHF. 3. NSTEMI with markedly elevated troponin with prior h/o CABG. 4. lactic acidosis 2nd to above. 5. chemotherapy induced pancytopenia and severe neutropenia. 6. anemia. 7. abdominal pain with abdominal distension - at the very least has ileus; cannot exclude SBO. 8. pacemaker status. 9. acute kidney injury. 10. shock, 2nd to sepsis. 11. T2DM. 12. coagulopathy - likely multifactorial. 13. hypomagnesemia. 14. acute systolic CHF 2nd to NSTEMI and ischemic cardiomyopathy. 15. moderate-severe mitral regurgitation, unknown if acute or chronic. Concern it is acute from his NSTEMI. 16. metabolic encephalopathy. After discussion with the family and all specialists and palliative care team involved, the patient was terminally extubated from the vent on 07/05 and treated with a morphine drip, as needed IV Ativan, and a scopolamine patch for secretions. He peacefully at 1830 on 07/06/18. Copy To Inderjit Hummel M.D.
== END 2018-07-06 21:34 | disposition expired | DRG 871 ==
LOC: C.MSICU 07-03 05:30 → ENRESERV 07-05 18:54 → C.4E 07-05 19:49
PROVIDERS: ADMIT Hospitalist; ATTEND Family Medicine
PROC: 5A1945Z Respiratory Ventilation, 24-96 Consecutive Hours (ICD-10-PCS; principal; 2018-07-03)
PROC: 02HV33Z Insertion of Infusion Device into Superior Vena Cava, Percutaneous Approach (ICD-10-PCS; principal; 2018-07-03)
PROC: 0BJ08ZZ Inspection of Tracheobronchial Tree, Via Natural or Artificial Opening Endoscopic (ICD-10-PCS; 2018-07-04)
DX: A41.9 Sepsis, unspecified organism (principal); J96.01 Acute respiratory failure with hypoxia; J96.02 Acute respiratory failure with hypercapnia; R65.21 Severe sepsis with septic shock; I21.4 Non-ST elevation (NSTEMI) myocardial infarction; J18.9 Pneumonia, unspecified organism; G93.41 Metabolic encephalopathy; I50.21 Acute systolic (congestive) heart failure; N17.9 Acute kidney failure, unspecified; C78.00 Secondary malignant neoplasm of unspecified lung; I48.92 Unspecified atrial flutter; J44.0 Chronic obstructive pulmonary disease with (acute) lower respiratory infection; Z51.5 Encounter for palliative care; R57.0 Cardiogenic shock; C4A.9 Merkel cell carcinoma, unspecified; D70.1 Agranulocytosis secondary to cancer chemotherapy; E11.9 Type 2 diabetes mellitus without complications; I25.10 Atherosclerotic heart disease of native coronary artery without angina pectoris; I25.5 Ischemic cardiomyopathy; I27.20 Pulmonary hypertension, unspecified; I49.5 Sick sinus syndrome; Z66 Do not resuscitate; E83.42 Hypomagnesemia; Z79.01 Long term (current) use of anticoagulants; Z79.82 Long term (current) use of aspirin; Z79.899 Other long term (current) drug therapy; Z91.81 History of falling; Z95.0 Presence of cardiac pacemaker; Z95.1 Presence of aortocoronary bypass graft